=== PATIENT | female | born 1970 | race African-American/Black ===

== ENCOUNTER 2024-10-21 11:08 | Emergency (ER) | payer BC, SELFPAY ==
--- NOTE | ~2024-10-21 | CT_ITS ---
EXAMINATION: CT brain wo con DATE: 10/21/2024 14:30 INDICATION: headache . TECHNIQUE: Computed tomography (CT) of the head was performed without intravenous contrast. The mA wa s adjusted according to patient size. Iterative reconstruction technique was employed. The dose-lengt h product was 605.33 mGy-cm. COMPARISON: None. FINDINGS: No acute intracranial hemorrhage or extra-axial fluid collection. No hydrocephalus, mass, or herniation. No acute ischemic infarct. Unremarkable dural venous sinus attenuation. No acute osseous abnormality. Aerated secretions in the sphenoid sinus, sphenoid and bilateral maxillary mucosal thickening, the re maining the remaining aerated spaces are clear. IMPRESSION: No acute intracranial process. CT findings suggestive of acute sphenoid sinusitis in the appropriate clinical context. Reviewed, dictated and finalized at location K.
--- OUTSIDE RECORDS SUMMARY | 2024-10-21 11:12 | XMS_ITS | CONTINUITY OF CARE DOCUMENT ---
Author Name lalito starkey Address Unknown Organization [facility] Office Address [address] [place] [address] Phone [phone] Care Team Providers Care Wrapper Hands Sprayer Name Role Phone Jeevan Fonseca MD Unavailable Zen DORubia Unavailable Zen DO, Sheerin B Unavailable [phone] PROBLEMS Condition Status Date Provider Notes ASTHMA active Doris Leaeal VERTIGO active Doris Rosenberg CHEST PAIN NON-CARDIAC active Doris Rosenberg FAMILY HX HEART DISEASE active Doris Castrejon l Obesity active Jeevan Fonseca MD B12 deficiency completed - Jeevan Fonseca MD r/o Hypercholesterolemia;nml without rx completed - Jeevan Fonseca MD Asthma active Jeevan Fonseca MD r/o CVA completed - Jeevan Fonseca MD hx of DVT active Jeevan Fonseca MD 02 FAMILY HISTORY OF HEART DISEASE active Yovana Fonseca MD Anemia active Jeevan Fonseca MD Abnormal electrocardiogram active Jeevan de la cruz MD Palpitations active Jeevan Fonseca MD Sleep apnea active Jeevan Fonseca MD Vitamin D deficiency active Jeevan Walsh D Chest pain-type to be determined active Jesus Fonseca MD HTN essential active Jeevan Fonseca MD PREDIABETES active Jeevan Fonseca MD Health maintenance examination active Za Pascal MD ENCOUNTERS Date Type Provider Location Encounter Diag danilo 3 - 6 In-person encounter Office Visit Pranav Pascal MD [facility] Health maintenance examination 4 - 4 In-person encounter Office Visit Jeevan Fonseca MD [facility] r/o Hypercholesterolemia;nml without rxr/o CVAHealth maintenance examination 0 - 0 In-person encounter Office Visit Jeevan Fonseca MD [facility] B12 deficiencyPalpitationsSleep apneaVitamin D deficiencyChest pain-type to be determinedHTN essentialPREDIABETES 1 - 1 In-person encounter Office Visit Jeevan Zun[facility] Office ObesityAsthmahx of DVTFAMILY HISTORY OF HEART DISEASEAnemiaAbnormal electrocardiogramPalpitationsSleep apnea VITAL SIGNS Date Observation Value Provider blood pressure, diastolic 100 mm[Hg] Alvaro Sandra blood pressure, systolic 140 mm[Hg] Judith Sandra pulse rate 102 /min Radha Sandra oxygen saturation, oximetry 98 % Radha Sandra respiratory rate E&M 22 /min Alvaroralph Sandra Body Mass Index (Ratio) 36.83 kg/m2 Carlos Sandra weight E&M 214.6 [lb_av] Alvaroralph Sandra blood pressure, diastolic, right arm 80 m m[Hg] Janice Villalta blood pressure, systolic, right arm 124 m m[Hg] Janice Villalta blood pressure, diastolic 80 mm[Hg] Thor Villalta blood pressure, systolic 122 mm[Hg] Jasmine Villalta respiratory rate E&M 16 /min Janice Villalta Body Mass Index (Ratio) 36.04 kg/m2 Jagjit Villalta weight E&M 210 [lb_av] Janice Zepedaby pulse rate 85 /min Janice Zepedaby oxygen saturation, oximetry 98 % Janice Villalta Body Mass Index (Ratio) 37.11 kg/m2 Jagjit Villalta weight E&M 216.2 [lb_av] Janice Villalta blood pressure, diastolic 80 mm[Hg] Thor Villalta blood pressure, systolic 120 mm[Hg] Jasmine Villalta pulse rate 79 /min Janice Villalta oxygen saturation, oximetry 98 % Janice Villalta respiratory rate E&M 16 /min Janice Zepedaby blood pressure, diastolic, left arm 86 mm [Hg] Marjorie O'Darinel blood pressure, systolic, left arm 118 mm [Hg] Marjorie O'Darinel blood pressure, diastolic, right arm 80 m m[Hg] Marjorie O'Darinel blood pressure, systolic, right arm 120 m m[Hg] Marjorie O'Darinel blood pressure, diastolic 80 mm[Hg] Tana velazquezha O'Darinel blood pressure, systolic 120 mm[Hg] Annelise holland O'[facility] Body Mass Index (Ratio) 37.76 kg/m2 Clarence garcia O[facility] height E&M 64 [in_i] Marjorie O'Darinel pulse rate 96 /min Marjorie O'Darinel oxygen saturation, oximetry 98 % Marjorie O'Darinel respiratory rate E&M 16 /min Marjorie O'Darinel weight E&M 220 [lb_av] Marjorie O'Darinel ALLERGIES No Known Drug Allergies RESULTS Date Observation Value Provider Reference Range Interpretation Location folate, serum 6.8 NG/MLM [facility] 4.4 - 31.0 vitamin b12, serum 553.1 pg/mL [facility] 211.0 - 946.0 red blood cell distribution width, size density 38.6 fL [facility] - immature granulocytes, percentage of total cells, blood 0.1 % [facility] - nucleated red blood cells as percent of blood leukocytes 0.0 % [facility] - red blood cell (erythrocyte) count, per high power field 0.0 10*3/UL [facility] as percent of blood leukocytes 2.7 % [facility] neutrophils as percent of blood leukocytes 60.1 % [facility] Absolute Neutrophils 4.4 CELLS/UL [facility] 1.5 - 7.8 basophils as percent of blood leukocytes 1.0 % [facility] Basophils 0.1 CELLS/UL [facility] 0.0 - 0.2 monocytes as percent of blood leukocytes 7.2 % [facility] - Absolute Monocytes 0.5 CELLS/UL [facility] 0.2 - 1.0 lymphocytes as percent of blood leukocytes 28.9 % [facility] - Absolute Lymphocytes 2.1 CELLS/UL [facility] 0.9 - 3.9 mean platelet volume 10.9 (?) [facility] - platelet count 381.0 THOUSAND/UL [facility] 100.0 - 400.0 mean corpuscular hemoglobin concentration, RBC 31.2 G/DL [facility] 31.0 - 38.0 mean corpuscular hemoglobin, RBC 21.7 pg [facility] 25.0 - 35.0 Low mean corpuscular volume, RBC 69.6 fL [facility] 75.0 - 100.0 Low hematocrit, blood 34.6 % [facility] 35.0 - 55.0 Low hemoglobin, blood 10.8 g/dL [facility] 11.5 - 16.5 Low erythrocyte count, whole blood 5.0 MILLION/UL [facility] 3.5 - 5.5 reticulocyte count, absolute 0.080 10*6 CELLS/UL [facility] - reticulocyte count, blood, uncorrected 1.61 % [facility] 0.50 - 2.00 ferritin, serum 58.9 ng/mL [facility] 13.0 - 150.0 iron binding capacity, total 402.0 (?) [facility] - iron, serum 76.0 ug/dL [facility] 25.0 - 156.0 iron binding capacity, unsaturated 326.0 ??G/DL [facility] 112.0 - 347.0 D-dimer quantitative mcg/mL 0.62 MCG/ML FEU [facility] <0.50 High red blood cell distribution width, size density 38.5 fL [facility] - immature granulocytes, percentage of total cells, blood 0.1 % [facility] - nucleated red blood cells as percent of blood leukocytes 0.0 % [facility] - red blood cell (erythrocyte) count, per high power field 0.0 10*3/UL [facility] - eosinophils as percent of blood leukocytes 1.7 % [facility] - neutrophils as percent of blood leukocytes 64.2 % [facility] - Absolute Neutrophils 5.2 CELLS/UL [facility] 1.5 - 7.8 basophils as percent of blood leukocytes 0.7 % [facility] Absolute Basophils 0.1 CELLS/UL [facility] 0.0 - 0.2 monocytes as percent of blood leukocytes 5.1 % [facility] - Absolute Monocytes 0.4 CELLS/UL [facility] 0.2 - 1.0 lymphocytes as percent of blood leukocytes 28.2 % [facility] - Absolute Lymphocytes 2.3 CELLS/UL [facility] 0.9 - 3.9 mean platelet volume 11.2 (?) [facility] - platelet count 413.0 THOUSAND/UL [facility] 100.0 - 400.0 High mean corpuscular hemoglobin concentration, RBC 30.4 G/DL [facility] 31.0 - 38.0 Low mean corpuscular hemoglobin, RBC 21.6 pg [facility] 25.0 - 35.0 Low mean corpuscular volume, RBC 71.0 fL [facility] 75.0 - 100.0 Low hematocrit, blood 37.2 % [facility] 35.0 - 55.0 hemoglobin, blood 11.3 g/dL [facility] 11.5 - 16.5 Low erythrocyte count, whole blood 5.2 MILLION/UL [facility] 3.5 - 5.5 free thyroxine index 7.8 ??g/dL [facility] 4.4 - 11.4 triiodothyronine uptake 1.2 TBI [facility] 0.8 - 1.3 thyroxine, serum, total 9.4 ??G/DL [facility] 4.5 - 11.7 thyroid stimulating hormone, serum 1.280 ?IU/ML [facility] 0.270 - 4.200 rapid plasma reagin antibody, serum NON-REACTIV E [facility] NON-REACTIVE hemoglobin A1C, blood, as % of total hemoglobin 5.7 % [facility] 4.0 - 6.0 magnesium, serum 2.3 mg/dL [facility] 1.6 - 2.6 Nitrite Urine Negative [facility] Negative urobilinogen, urine 0.2 E.U./dL mg/dl [facility] 0.2 - 1.0 specific gravity, urine 1.025 [facility] 1.001 - 1.035 KETONES, URINE Negative [facility] Negative bilirubin, urine Negative [facility] Negative Glucose Urine Negative [facility] Negative clarity, urine, point Turbid [facility] Yellow urine color Yellow [facility] yellow to talon C-reactive protein, serum 1.2 mg/dL [facility] 0.0 - 0.5 High very low density lipoproteins 22.2 mg/dL [facility] 5.0 - 40.0 LDL/HDL (low-density lipoprotein/high-den sity lipoprotein) ratio 1.4 RATIO [facility] - lipoprotein, beta, serum, point, quantitative, calculated 96.8 (?) [facility] 0.0 - 100.0 HDL cholesterol, serum 69.0 mg/dL [facility] 45.0 - 65.0 High cholesterol, serum 188.0 mg/dL [facility] 0.0 - 200.0 triglyceride, serum, fasting 111.0 mg/dL [facility] 0.0 - 150.0 anion gap, serum 15.0 [facility] - albumin/globulin ratio, serum 2.5 g/dL [facility] 1.1 - 2.5 High globulin, serum 3.5 [facility] 2.3 - 3.8 urea nitrogen/creatinine ratio, serum 15.7 [facility] - Estimated Glomerular Filtration Rate (calc) 96.2 (?) [facility] 59.0 - chloride, serum 103.0 mmol/L [facility] 98.0 - 107.0 potassium, serum 4.4 mmol/L [facility] 3.5 - 5.1 sodium, serum 139.0 mmol/L [facility] 136.0 - 145.0 creatinine, serum 0.7 mg/dL [facility] 0.5 - 0.9 carbon dioxide, venous blood 21.0 mmol/L [facility] 22.0 - 29.0 Low albumin, serum 4.5 g/dL [facility] 3.5 - 5.2 calcium, serum 9.4 mg/dL [facility] 8.6 - 10.2 aspartate aminotransferase (SGOT), serum 19.0 1/L [facility] 0.0 - 32.0 alkaline phosphatase, serum 94.0 1/L [facility] 40.0 - 130.0 alanine aminotransferase (SGPT), serum 21.0 1/L [facility] 0.0 - 33.0 protein, total, serum 8.0 g/dL [facility] 6.6 - 8.7 bilirubin, serum, total 0.4 mg/dL [facility] 0.0 - 1.2 urea nitrogen, blood 11.0 mg/dL [facility] 6.0 - 20.0 blood glucose, random 84.0 mg/dL [facility] 74.0 - 99.0 pro brain natriuretic peptide 20.6 pg/mL [facility] 0.0 - 125.0 reticulocyte count, absolute 0.085 10*6 CELLS/UL [facility] - reticulocyte count, blood, uncorrected 1.63 % [facility] 0.50 - 2.00 iron binding capacity, unsaturated 313.0 ??G/DL [facility] 112.0 - 347.0 ferritin, serum 62.3 ng/mL [facility] 13.0 - 150.0 iron binding capacity, total 408.0 (?) [facility] - iron, serum 95.0 ug/dL [facility] 25.0 - 156.0 vitamin b12, serum 551.7 pg/mL [facility] 211.0 - 946.0 folate, serum 8.0 NG/MLM [facility] 4.4 - 31.0 HISTORY OF MEDICATION USE Medication Status Instructions Dates Provider Indications Com ments VITAMIN D3 87351 UNIT ORAL CAPSULE active ONE A WEEK 1 Jeevan Fonseca MD FERROUS SULFATE 325 (65 Fe) MG ORAL TABLET completed ONE PER DAY 0 - 3 Pranav Pascal MD ALBUTEROL SULFATE (5 MG/ML) 0.5% INHALATION NEBULIZATION SOLUTION active 2 puffs as direceted Janice Villalta VITAMIN D3 5000 UNIT ORAL TABLET completed take one tab daily 4 - 0 Jeevan Fonseca MD QSYMIA 7.5-46 MG ORAL CAPSULE EXTENDED RELEASE 24 HOUR completed one tablet daily 3 - 0 Jeevan Fonseca MD QSYMIA 3.75-23 MG ORAL CAPSULE EXTENDED RELEASE 24 HOUR completed one tablet daily 3 - 0 Jeevan Fonseca MD ZESTRIL TABLET active twice a day 1 Jeevan Fonseca MD VALIUM 10 MG ORAL TABLET active Doris Rosenberg SINGULAIR 10 MG ORAL TABLET active one tab. daily Doris Rosenberg MECLIZINE HCL 25 MG ORAL TABLET active Doris Rosenberg FLONASE SUSPENSION active Doris Leaeal PEPCID 20 MG ORAL TABLET active Doris Rosenberg ASPIRIN 81 MG ORAL TABLET active ONE TAB. DAILY Doris Leaeal SOCIAL HISTORY Date Observation Value Provider social history reviewed E&M revi ewed - no changes required Pranav Pascal MD social history E&M Alcohol Use - no D rug Use - no; occasionally Smoking History: P dianna has never smoked. Pranav Pascal MD drug use no Pranav Jesus alcohol use no Pranav Jesus smoking status Never smoker Pranav Pascal MD social history reviewed E&M revi ewed - no changes required Jeevan Fonseca MD number of grandchildren Pranav Willard social history reviewed E&M revi ewed - no changes required Jeevan Fonseca MD social history reviewed E&M revi ewed - no changes required Jeevan Fonseca MD smoking status Never smoker Marjorie Rodriguez FAMILY HISTORY Family Member Condition Full Sister Family History of Hy pertension: Father Family History of Hy pertension: Mother Family History of Hy pertension: Paternal Grandmother Family History of C oronary Artery Disease: Paternal Grandmother Family History of H ypertension: Paternal Grandfather Family History of C oronary Artery Disease: Paternal Grandfather Family History of H yperlipidemia: Maternal Grandfather Family History of C oronary Artery Disease: Maternal Grandfather Family History of H yperlipidemia: Maternal Grandmother Family History of C oronary Artery Disease: Maternal Grandmother Family History of H ypertension: INSURANCE PROVIDERS Payer name Policy type / Coverage type [employer] [id number] TREATMENT PLAN Date Name Performer Hem/Onc:Refer carmina malin for routine screening mammogram. Orders: M ammogram-Bilateral (CPT-37845) 9 [id number] MOD C omplex (CPT-07167) Pranav Pascal MD Hem/Onc:The patient has a microcytic with a near normal Hgb. This likely represents an underlying thalassemia or sickle cell trait. I will check hemoglobin elctorphoresis to confirm. I will also obtain FOB for evalaution. She will return in three months for follow up. Orders: H gb Electrophoresis (CPT-[id number]) M ammogram-Bilateral (CPT-35165) O CCULT BLOOD, STOOL (23201) 9 1557 MOD C omplex (CPT-20868) Pranav Pascal MD Cardiology Jeevan Fonseca MD Cardiology:5.7 Jeevan Fonseca MD Cardiology: n ml chol, crp 1.2, nml rpr, ,nml mra and mri Jeevan Fonseca MD Cardiology: m ild given htn will get dental appliace Jeevan Fonseca MD Cardiology:says goes up and will try it albina twice a day B P today: 122/80 P rior BP: 120/80 (11/06/2015) Labs Reviewed: C reat: 0.7 (09/12/2015) C hol: 188.0 (09/12/2015) HDL: 69.0 (09/12/2015) LDL: 96.8 (?) (09/12/2015) T.0 (09/12/2015) Jeevan Fonseca MD Cardiology:nml iron, will see gm, will check b12 and folate Jeevan Fonseca MD Cardiology:low but on rx now Jesus Fonseca MD Cardiology: n eg routine stress, still gets pain, neg echo and neg cxr, had cta in hosp which was normal Jeevan Fonseca MD Cardiology Jeevan Fonseca MD Cardiology:fu us neg, dd matthew Fonseca MD Cardiology Jeevan Fonseca MD Cardiology Jeevan Fonseca MD Cardiology:has qymis but not doreen ing it yet Jeevan Fonseca MD Cardiology:may need iron infusit on, will start iron Jeevan Fonseca MD Cardiology:nml chol, crp 1.2, nm l rpr, Jeevan Fonseca MD Cardiology:rxed will reasses Jesus Fonseca MD Cardiology:Rhythm: S inus Rhythm T he average heart rate was 86 BPM with a maximum heart rate of 141 BPM at 17:57:44. T he minimum heart rate was 49 BPM at 14:34:24. 6 Ventricular ectopics were observed as 6 isolated beat(s). N o Supraventricular ectopics were noted. D iary not submitted. nl tshHgb: 11.3 (09/12/2015) HCT: 37.2 (09/12/2015) Platelets: 413.0 THOUSAND/UL (09/12/2015) B UN: 11.0 (09/12/2015) Creat: 0.7 (09/12/2015) Glucose: 84.0 (09/12/2015) N a+: 139.0 (09/12/2015) K+: 4.4 (09/12/2015) Cl: 103.0 (09/12/2015) Anion Gap: 15.0 (09/12/2015) Calcium: 9.4 (09/12/2015) Mg++: 2.3 (09/12/2015) T SH: 1.280 ?IU/ML (09/12/2015) T4 (total): 9.4 ??G/DL (09/12/2015) Jeevan Fonseca MD Cardiology:mild given htn will g et dental appliace Jeevan Fonseca MD Cardiology:1. Normal left ventricular systolic function. Normal left ventricular size. Normal left ventricular wall t hickness. Normal left ventricular diastolic function. Normal E/E` 6.8. Left ventricular ejection fraction i s estimated at 65 %. 2 . The left atrium is normal in size. Left atrial volume index is 24.9. 3 . The mitral valve is normal in appearance and function. There is trace physiologic mitral valve r egurgitation. 4 . The tricuspid valve is normal in appearance and function. There is mild to moderate tricuspid r egurgitation. IVC is normal in size with normal respiratory response. Estimated peak pulmonary a rtery systolic pressure is 30. B P today: 120/80 P rior BP: 120/80 (09/09/2015) Labs Reviewed: C reat: 0.7 (09/12/2015) C hol: 188.0 (09/12/2015) HDL: 69.0 (09/12/2015) LDL: 96.8 (?) (09/12/2015) T.0 (09/12/2015) Jeevan Fonseca MD Cardiology:neg routi ne stress, still gets pain, neg echo and neg cxr, had cta in hosp? no resluts in epic Jeevan Fonseca MD Cardiology:Pulmonary Function Diagnosis: T echnically difficult study due to coughing E ssentially normal PFTs. Jeevan Fonseca MD :will try qusm,ia Jeevan Fonseca MD Cardiology:nsstt since 07 Jeevan Fonseca MD Cardiology:neg mri 11 and m ra H kevin Fonseca MD Date Name OCCULT BLOOD, STOOL Mammogram-Bilateral CBC (INCLUDES DIFF/P LT) RETICULOCYTE COUNT FOLATE, SERUM VITAMIN B12/FOLATE, SERUM PANEL VITAMIN B12 FOLATE, SERUM RETICULOCYTE COUNT CBC (INCLUDES DIFF/P LT) VITAMIN D, 25-HYDROX Y, LC/MS/MS RHEUMATOID FACTOR MANUEL SCREEN REFL TO T ITER, IFA MAGNESIUM Sed Rate T-4 (THYROXINE), TOT AL LIPASE AMYLASE URINALYSIS, COMPLETE W/REFLEX TO CULTURE VITAMIN D, 25-HYDROX Y, LC/MS/MS HEMOGLOBIN A1c D-DIMER, QUANTITATIV E RPR (MONITOR) W/REFL TITER THYROID PANEL WITH T SH, 3RD GENERATION C-REACTIVE PROTEIN LIPID PANEL COMPREHENSIVE METABO LIC PANEL W/EGFR PROBNP, N TERMINAL VITAMIN B12 RETICULOCYTE COUNT IRON AND TOTAL IRON BINDING CAPACITY FOLATE, SERUM FERRITIN CBC (INCLUDES DIFF/P LT) VITAMIN D, 25-HYDROX Y, LC/MS/MS HEMOGLOBIN A1c Sleep Study Home STR - Routine D-DIMER, QUANTITATIV E Complete Echo Holter Monitor 24 Hr RPR (MONITOR) W/REFL TITER THYROID PANEL WITH T SH, 3RD GENERATION C-REACTIVE PROTEIN LIPID PANEL COMPREHENSIVE METABO LIC PANEL W/EGFR PROBNP, N TERMINAL VITAMIN B12 RETICULOCYTE COUNT IRON AND TOTAL IRON BINDING CAPACITY FOLATE, SERUM FERRITIN CBC (INCLUDES DIFF/P LT) DLCO - 01439 FRC - 53672 FVC - 41894 HISTORY OF PROCEDURES Procedure Date Procedure Name Provider Procedure Notes S tatus SNOMED-CT: 911653232 [id number] Current Medications Documented Pranav Pascal MD completed SNOMED-CT: 370371451 117447 Current Medications Documented Jeevan Fonseca MD completed EKG Jeevan Fonseca MD complete d SNOMED-CT: 019266123 375661 Current Medications Documented Jeevan Fonseca MD completed FVC - 26960 Jeevan Fonseca MD complet ed FRC - 02737 Jeevan Fonseca MD complet ed DLCO - 94551 Jeevan Fonseca MD comple kimi Holter, 24 or 48 Jeevan Fonseca MD co mpleted Home Sleep Study Jeevan Fnoseca MD co mpleted SNOMED-CT: 584232838 201414 Current Medications Documented Jeevan Fonseca MD completed
[2024-10-21 11:16] VITALS: BP 156/114; PULSE 89; RESP 18; TEMP 36.4; O2SAT 100
[2024-10-21 13:24] VITALS: BP 135/75; PULSE 76; RESP 19; O2SAT 97
--- OUTSIDE RECORDS SUMMARY | 2024-10-21 13:37 | XMS_ITS | Patient Health Summary ---
Author Organization [facility] Address [address] [place] [address] Care Team Providers Care Ground Mixer Name Role Phone Katie Zaldivargurvinder Primo CASEY Primary Care Provider [phone] Rebecca Wright MD Unavailable Kadie Keating MD Unavailable [phone] Note from [facility],non-owned Affiliates and Associated Physician Practices is amultiple site organization consisting of ambulatory clinics and hospital sitesin [place], [place]. This disclosure is being madepursuant to the Care Everywhere program and may not contain all information available regarding this patient. Last updated 18.[facility] Allergies * Cat Hair Extract(Urticaria) -Medium Criticality * House Dust [Other](Other) * [place](Rash) -Medium Criticality * Tree Nuts(Urticaria,Rash) -Medium Criticality * Wheat Bran(Urticaria) -Medium Criticality Medications * Be aware that medications may not be up to date on this document. Alwaysverify current medications with the patient. * buPROPion XL 24hr (Wellbutrin-XL) 300 MG tablet(Started 12/16/2022) Take 1 (one) tablet by mouth once daily 3 refills by 12/16/2023 * fluticasone-salmeterol (Advair/Wixela) 500-50 MCG/ACT inhaler(Started 12/16/2022) Inhale 1 (one) puff by mouth 2 times daily 11 refills by 12/16/2023 * montelukast (Singulair) 10 MG tablet(Started 12/16/2022) Take 1 (one) tablet by mouth at bedtime 3 refills by 12/16/2023 * umeclidinium (Incruse Ellipta) 62.5 MCG/ACT inhaler(Started 12/16/2022) Inhale 1 (one) puff by mouth once daily 11 refills by 12/16/2023 * zolpidem (Ambien) 5 MG tablet(Started 12/16/2022) Take 1 (one) tablet by mouth nightly as needed for Insomnia * omeprazole (PriLOSEC) 20 MG capsule(Started 12/16/2022) Take 1 (one) capsule by mouth daily before breakfast 3 refills by 12/16/2023 * ondansetron, disintegrating, (Zofran ODT) 4 MG tablet(Started 01/29/2023) Take 1 (one) tablet by mouth every 6 hours as needed for Nausea/Vomiting Allow tablet to dissolve on the tongue 1 refill by 01/29/2024 * methocarbamol (Robaxin) 750 MG tablet(Started 02/25/2023) Take 1 (one) tablet by mouth every 8 hours as needed * carvedilol (Coreg) 12.5 MG tablet(Started 04/26/2023) Take 1 (one) tablet by mouth 2 times daily with morning and evening meal 4 refills by 04/25/2024 * fluticasone propionate (Flonase) 50 MCG/ACT nasal spray(Started 10/06/2023) [place] 2 (two) sprays into each nostril once daily 1 refill by 10/05/2024 * predniSONE (Deltasone) 20 MG tablet(Started 11/23/2023) Take 2 (two) tablets by mouth once daily * amLODIPine (Norvasc) 5 MG tablet(Started 02/29/2024) Take 1 (one) tablet by mouth once daily 3 refills by 02/28/2025 * tiZANidine (Zanaflex) 4 MG tablet(Started 03/01/2024) Take 1 (one) tablet by mouth every 8 hours as needed for Muscle Spasms 1 refill by 03/01/2025 * predniSONE (Deltasone) 5 MG tablet(Started 03/03/2024) Please take 15 mg PO x 5 days, 10 mg PO x 5 days and 5 mg PO x 5 days * adalimumab (Humira) 40 MG/0.4ML injection(Started 05/10/2024) Inject 0.4 mL subcutaneously every 14 days 1 refill by 05/10/2025 * ibuprofen (Motrin) 800 MG tablet(Started 07/04/2024) * traMADol (Ultram) 50 MG tablet(Started 08/11/2024) Take 1 (one) tablet by mouth every 6 hours as needed for Pain * vitamin D (Cholecaciferol) 125 MCG (5000 UT) capsule(Started 09/11/2024) Take 1 (one) capsule by mouth once daily 3 refills by 09/11/2025 * vitamin C (Ascorbic Acid) 1000 MG tablet(Started 09/11/2024) Take 1 (one) tablet by mouth once daily 3 refills by 09/11/2025 * albuterol HFA (Ventolin HFA) 108 (90 Base) MCG/ACT inhaler(Started 09/12/2024) Inhale 2 (two) puffs by mouth every 4 hours as needed * albuterol (Proventil;Ventolin) (2.5 MG/3ML) 0.083% nebulizer solution(Started 09/12/2024) Inhale 2.5 (two and one-half) mg by mouth 4 times daily as needed for Shortness of Breath 5 refills by 09/12/2025 * budesonide (Pulmicort) 0.5 MG/2ML nebulizer suspension(Started 09/12/2024) Inhale 2 mL by mouth 2 times daily Rinse mouth after use 4 refills by 09/12/2025 * benzonatate (Tessalon) 200 MG capsule(Started 09/12/2024) Take 1 (one) capsule by mouth 3 times daily as needed for Cough 5 refills by 09/12/2025 * irbesartan-hydroCHLOROthiazide (Avalide) 300-12.5 MG tablet(Started 09/15/2024) Take 1 tablet by mouth once daily Active Problems Problem Noted Date Diagnosed Date Moderate persistent asthma without complication 02/06/2020 Hypokalemia 11/28/2019 Community acquired pneumonia 11/28/2019 Suspected COVID-19 virus infection 11/28/2019 Mass of skin of back 09/08/2019 Lipoma of torso 08/25/2018 Asthma 11/23/2017 Chest pain 11/23/2017 Elevated blood pressure reading 11/23/2017 Asthenia 12/16/2016 Benign essential hypertension 12/16/2016 Dysarthria on examination 12/16/2016 Neck pain 12/16/2016 Impaired glucose tolerance 11/06/2015 Vitamin D deficiency 11/06/2015 Chest pain 11/06/2015 Abnormal electrocardiogram 09/09/2015 Anemia 09/09/2015 Deep vein thrombosis (DVT) 09/09/2015 Obesity 09/09/2015 Palpitations 09/09/2015 Sleep apnea 09/09/2015 Family history of heart disease 10/09/2010 Vertigo 10/09/2010 Screening for condition 02/13/2009 PPD negative 02/13/2009 Hay fever 02/13/2009 Resolved Problems Problem Noted Date Diagnosed Date Resolved Date Cough 08/11/2020 09/08/2020 Asthma exacerbation 11/23/2017 12/20/19 21 Social History Tobacco Use Types Packs/Day Years Used Date Smoking Tobacco: Never Smokeless Tobacco: Never Tobacco Cessation:Counseling Given: Not Answered Alcohol Use Standard Drinks/Week Comments Not Currently 0 (1 standard drink = 0.6 oz pur e alcohol) occas PHQ-2 Answer Date Recorded Patient Health Questionnaire-2 Score 0 07/19/2024 Sex and Gender Information Value Date Recorded Sex Assigned at Not on file Gender Identity Female 11/13/2020 9:48 AM CDT Sexual Orientation Not on file Last Filed Vital Signs Vital Sign Reading Time Taken Comments Blood Pressure 142/88 07/19/2024 9:20 AM GERIATRIC NURSING ASSISTANT Pulse 80 07/19/2024 9:20 AM GERIATRIC NURSING ASSISTANT Temperature 36.7 C (98 F) 07/19/2024 9:20 AM GERIATRIC NURSING ASSISTANT Respiratory Rate 18 04/06/2024 3:55 PM CDT Oxygen Saturation 99% 05/10/2024 1:51 PM CDT Inhaled Oxygen Concentration 21% 12/03/2019 7 :11 AM CDT Weight 110.2 kg (243 lb) 07/19/2024 9:20 AM GERIATRIC NURSING ASSISTANT Height 163.8 cm (5' 4.5 ) 07/19/2024 9:20 AM GERIATRIC NURSING ASSISTANT Body Mass Index 41.07 07/19/2024 9:20 AM GERIATRIC NURSING ASSISTANT Procedures * MAMMO BILAT DIAGNOSTIC W GIGI(Performed 07/05/2024) Performed for Breast pain * URINALYSIS W/MICROSCOPIC NO CULTURE(Performed 05/10/2024) * CULTURE URINE COMPREHENSIVE(Performed 05/10/2024) * CHLAMYDIA + GC + TRICH DNA AMPL(Performed 05/10/2024) * XR CERVICAL SPINE 2 OR 3VW(Performed 04/06/2024) Performed for Neck pain * XR THORACIC SPINE 3VW(Performed 04/06/2024) Performed for Neck pain * T4 TOTAL(Performed 02/29/2024) Performed for Hypertension, essential * TSH(Performed 02/29/2024) Performed for Hypertension, essential * LIPID PROFILE(Performed 02/29/2024) Performed for Screening for hyperlipidemia * CULTURE URINE(Performed 02/29/2024) Performed for Urinary frequency * URINALYSIS MICROSCOPIC ONLY REFLEXED(Performed 02/29/2024) Performed for Urinary frequency * MAGNESIUM BLOOD(Performed 02/29/2024) Performed for Hypertension, essential * URINALYSIS W/MICROSCOPIC NO CULTURE(Performed 02/29/2024) Performed for Urinary frequency * HEMOGLOBIN A1C(Performed 02/29/2024) Performed for Urinary frequency * ERYTHROCYTE SEDIMENTATION RATE(Performed 02/23/2024) Performed for Non-radiographic axial spondyloarthritis (HCC), Polyarthralgia, Elevated C-reactive protein (CRP), Vitamin D deficiency, High risk medications (not anticoagulants) long-term use, Immunosuppressed status (HCC) * C-REACTIVE PROTEIN(Performed 02/23/2024) Performed for Non-radiographic axial spondyloarthritis (HCC), Polyarthralgia, Elevated C-reactive protein (CRP), Vitamin D deficiency, High risk medications (not anticoagulants) long-term use, Immunosuppressed status (HCC) * COMPREHENSIVE METABOLIC PANEL(Performed 02/23/2024) Performed for Non-radiographic axial spondyloarthritis (HCC), Polyarthralgia, Elevated C-reactive protein (CRP), Vitamin D deficiency, High risk medications (not anticoagulants) long-term use, Immunosuppressed status (HCC) * CBC W AUTO DIFFERENTIAL(Performed 02/23/2024) Performed for Non-radiographic axial spondyloarthritis (HCC), Polyarthralgia, Elevated C-reactive protein (CRP), Vitamin D deficiency, High risk medications (not anticoagulants) long-term use, Immunosuppressed status (HCC) * QUANTIFERON TB-GOLD(Performed 11/18/2023) Performed for Non-radiographic axial spondyloarthritis (HCC), Polyarthralgia, Elevated C-reactive protein (CRP), Vitamin D deficiency, High risk medications (not anticoagulants) long-term use, Immunosuppressed status (HCC) * VITAMIN D 25-HYDROXY(Performed 11/18/2023) Performed for Non-radiographic axial spondyloarthritis (HCC), Polyarthralgia, Elevated C-reactive protein (CRP), Vitamin D deficiency, High risk medications (not anticoagulants) long-term use, Immunosuppressed status (HCC) * ERYTHROCYTE SEDIMENTATION RATE(Performed 11/18/2023) Performed for Non-radiographic axial spondyloarthritis (HCC), Polyarthralgia, Elevated C-reactive protein (CRP), Vitamin D deficiency, High risk medications (not anticoagulants) long-term use, Immunosuppressed status (HCC) * C-REACTIVE PROTEIN(Performed 11/18/2023) Performed for Non-radiographic axial spondyloarthritis (HCC), Polyarthralgia, Elevated C-reactive protein (CRP), Vitamin D deficiency, High risk medications (not anticoagulants) long-term use, Immunosuppressed status (HCC) * COMPREHENSIVE METABOLIC PANEL(Performed 11/18/2023) Performed for Non-radiographic axial spondyloarthritis (HCC), Polyarthralgia, Elevated C-reactive protein (CRP), Vitamin D deficiency, High risk medications (not anticoagulants) long-term use, Immunosuppressed status (HCC) * CBC W AUTO DIFFERENTIAL(Performed 11/18/2023) Performed for Non-radiographic axial spondyloarthritis (HCC), Polyarthralgia, Elevated C-reactive protein (CRP), Vitamin D deficiency, High risk medications (not anticoagulants) long-term use, Immunosuppressed status (HCC) * INTERPRETATION REFLEXED(Performed 11/18/2023) Performed for Non-radiographic axial spondyloarthritis (HCC), Polyarthralgia, Elevated C-reactive protein (CRP), Vitamin D deficiency, High risk medications (not anticoagulants) long-term use, Immunosuppressed status (HCC) * HEPATITIS SCREEN ACUTE ([facility])(Performed 11/18/2023) Performed for Non-radiographic axial spondyloarthritis (HCC), Polyarthralgia, Elevated C-reactive protein (CRP), Vitamin D deficiency, High risk medications (not anticoagulants) long-term use, Immunosuppressed status (HCC) * CT SINUS WO CONTRAST(Performed 10/16/2023) Performed for TMJ (temporomandibular joint disorder), Facial swelling, [place] muscle spasm * NM MYOCARD PERF REST STRESS(Performed 05/06/2023) Performed for Nonspecific abnormal electrocardiogram (ECG) (EKG), Chest discomfort * STRESS TEST(Performed 05/06/2023) Performed for Nonspecific abnormal electrocardiogram (ECG) (EKG), Chest discomfort * ECHO COMPLETE(Performed 04/26/2023) Performed for Hypertension, essential, History of syncope * ERYTHROCYTE SEDIMENTATION RATE(Performed 04/14/2023) Performed for Tenosynovitis of right hand, Cellulitis and abscess of hand * COMPREHENSIVE METABOLIC PANEL(Performed 04/14/2023) Performed for Tenosynovitis of right hand, Cellulitis and abscess of hand * CBC W AUTO DIFFERENTIAL(Performed 04/14/2023) Performed for Tenosynovitis of right hand, Cellulitis and abscess of hand * XR CERVICAL SPINE 4 OR 5VW(Performed 03/01/2023) Performed for Right arm pain, Cervicalgia * XR FOREARM RIGHT 2VW OR MORE(Performed 03/01/2023) Performed for Right arm pain * XR ELBOW RIGHT 3VW OR MORE(Performed 03/01/2023) Performed for Right arm pain * XR HAND RIGHT 3VW OR MORE(Performed 03/01/2023) Performed for Right arm pain * INTERPRETATION REFLEXED(Performed 02/02/2023) Performed for Non-radiographic axial spondyloarthritis (HCC), Polyarthralgia, Elevated C-reactive protein (CRP), Vitamin D deficiency, High risk medications (not anticoagulants) long-term use, Immunosuppressed status (HCC) * HEPATITIS SCREEN ACUTE ([facility])(Performed 02/02/2023) Performed for Non-radiographic axial spondyloarthritis (HCC), Polyarthralgia, Elevated C-reactive protein (CRP), Vitamin D deficiency, High risk medications (not anticoagulants) long-term use, Immunosuppressed status (HCC) * ERYTHROCYTE SEDIMENTATION RATE(Performed 02/02/2023) Performed for Non-radiographic axial spondyloarthritis (HCC), Polyarthralgia, Elevated C-reactive protein (CRP), Vitamin D deficiency, High risk medications (not anticoagulants) long-term use, Immunosuppressed status (HCC) * C-REACTIVE PROTEIN(Performed 02/02/2023) Performed for Non-radiographic axial spondyloarthritis (HCC), Polyarthralgia, Elevated C-reactive protein (CRP), Vitamin D deficiency, High risk medications (not anticoagulants) long-term use, Immunosuppressed status (HCC) * URINALYSIS MICROSCOPIC ONLY REFLEXED(Performed 01/18/2023) Performed for Physical exam, annual * QUANTIFERON-TB GOLD PLUS 4-TUBE(Performed 01/18/2023) Performed for Screening-pulmonary TB * MAGNESIUM BLOOD(Performed 01/18/2023) Performed for Hypertension, essential * VITAMIN D 25-HYDROXY(Performed 01/18/2023) Performed for Physical exam, annual * VITAMIN B12(Performed 01/18/2023) Performed for Physical exam, annual * URINALYSIS W/MICROSCOPIC NO CULTURE(Performed 01/18/2023) Performed for Physical exam, annual * TSH(Performed 01/18/2023) Performed for Physical exam, annual * T4 TOTAL(Performed 01/18/2023) Performed for Physical exam, annual * LIPID PROFILE(Performed 01/18/2023) Performed for Physical exam, annual * HEMOGLOBIN A1C(Performed 01/18/2023) Performed for Physical exam, annual * ERYTHROCYTE SEDIMENTATION RATE(Performed 01/18/2023) Performed for Physical exam, annual * COMPREHENSIVE METABOLIC PANEL(Performed 01/18/2023) Performed for Physical exam, annual * CBC W AUTO DIFFERENTIAL(Performed 01/18/2023) Performed for Physical exam, annual * CARDIAC EKG ORDER(Performed 12/18/2022) * CT HEAD WO CONTRAST(Performed 12/16/2022) Performed for Dizziness * TROPONIN I(Performed 12/16/2022) * TSH REFLEX FREE T4(Performed 12/16/2022) * TROPONIN I(Performed 12/16/2022) * COMPREHENSIVE METABOLIC PANEL(Performed 12/16/2022) * CBC W AUTO DIFFERENTIAL(Performed 12/16/2022) * XR CHEST 1VW(Performed 12/16/2022) Performed for Dizziness * EKG 12-LEAD(Performed 12/16/2022) Performed for Dizziness * IMAGING/RADIOLOGY/XRAY RESULTS ORDER(Performed 02/22/2022) * IMAGING/RADIOLOGY/XRAY RESULTS ORDER(Performed 02/14/2022) * IMAGING/RADIOLOGY/XRAY RESULTS ORDER(Performed 02/14/2022) * IMAGING/RADIOLOGY/XRAY RESULTS ORDER(Performed 12/30/2021) * IMAGING/RADIOLOGY/XRAY RESULTS ORDER(Performed 12/30/2021) * IMAGING/RADIOLOGY/XRAY RESULTS ORDER(Performed 07/12/2021) * IMAGING/RADIOLOGY/XRAY RESULTS ORDER(Performed 07/12/2021) * IMAGING/RADIOLOGY/XRAY RESULTS ORDER(Performed 07/12/2021) * IMAGING/RADIOLOGY/XRAY RESULTS ORDER(Performed 07/12/2021) * XR TIBIA FIBULA RIGHT 2VW(Performed 04/09/2021) Performed for Closed fracture of right tibia and fibula with routine healing, subsequent encounter * XR ANKLE RIGHT 3VW OR MORE(Performed 04/09/2021) Performed for Closed fracture of right tibia and fibula with routine healing, subsequent encounter * XR FOOT RIGHT 3VW OR MORE(Performed 04/09/2021) Performed for Closed fracture of right tibia and fibula with routine healing, subsequent encounter * VAS RIGHT VENOUS DUPLEX LE(Performed 04/09/2021) Performed for Deep vein thrombosis (DVT) of distal vein of lower extremity, unspecified chronicity,unspecified laterality (HCC), Right leg pain * XR TIBIA FIBULA RIGHT 2VW(Performed 03/12/2021) Performed for Other closed fracture of proximal end of right fibula, sequela * IMAGING/RADIOLOGY/XRAY RESULTS ORDER(Performed 03/07/2021) * IMAGING/RADIOLOGY/XRAY RESULTS ORDER(Performed 03/07/2021) * IMAGING/RADIOLOGY/XRAY RESULTS ORDER(Performed 03/07/2021) * IMAGING/RADIOLOGY/XRAY RESULTS ORDER(Performed 03/07/2021) * XR PELVIS W BILAT HIP 2VW(Performed 03/06/2021) Performed for Lumbar pain, Bilateral hip pain * XR LUMBAR SPINE 4VW OR MORE(Performed 03/06/2021) Performed for Lumbar pain, Bilateral hip pain * MRI ANKLE RIGHT WWO CONTRAST(Performed 02/21/2021) Performed for Foot pain, bilateral, Arthralgia of both ankles, Osteoarthritis of right ankle, unspecified osteoarthritis type, Bone cyst of right fibula, Posterior tibial tendon dysfunction (PTTD) ofright lower extremity, Posterior tibial tendonitis of right leg, Unstable ankle, unspecified laterality, Sinus tarsi syndrome of right ankle * SARS-COV-2 (COVID-19) IN HOUSE(Performed 02/14/2021) Performed for Person under investigation for COVID-19 * XR FOOT BILAT WT BEARING 3VW(Performed 02/13/2021) Performed for Foot pain, bilateral, Arthralgia of both ankles, Osteoarthritis of right ankle, unspecified osteoarthritis type, Posterior tibial tendon dysfunction (PTTD) of right lower extremity, Posterior tibial tendonitis of right leg, Sinus tarsi syndrome of right ankle * VITAMIN D 25-HYDROXY(Performed 02/05/2021) Performed for Non-radiographic axial spondyloarthritis (HCC), Polyarthralgia, Elevated C-reactive protein (CRP), Vitamin D deficiency, High risk medications (not anticoagulants) long-term use, Immunosuppressed status (HCC) * HEPATITIS SCREEN ACUTE(Performed 02/05/2021) Performed for Non-radiographic axial spondyloarthritis (HCC), Polyarthralgia, Elevated C-reactive protein (CRP), Vitamin D deficiency, High risk medications (not anticoagulants) long-term use, Immunosuppressed status (HCC) * ERYTHROCYTE SEDIMENTATION RATE(Performed 02/05/2021) Performed for Non-radiographic axial spondyloarthritis (HCC), Polyarthralgia, Elevated C-reactive protein (CRP), Vitamin D deficiency, High risk medications (not anticoagulants) long-term use, Immunosuppressed status (HCC) * C-REACTIVE PROTEIN(Performed 02/05/2021) Performed for Non-radiographic axial spondyloarthritis (HCC), Polyarthralgia, Elevated C-reactive protein (CRP), Vitamin D deficiency, High risk medications (not anticoagulants) long-term use, Immunosuppressed status (HCC) * COMPREHENSIVE METABOLIC PANEL(Performed 02/05/2021) Performed for Non-radiographic axial spondyloarthritis (HCC), Polyarthralgia, Elevated C-reactive protein (CRP), Vitamin D deficiency, High risk medications (not anticoagulants) long-term use, Immunosuppressed status (HCC) * CBC W AUTO DIFFERENTIAL(Performed 02/05/2021) Performed for Non-radiographic axial spondyloarthritis (HCC), Polyarthralgia, Elevated C-reactive protein (CRP), Vitamin D deficiency, High risk medications (not anticoagulants) long-term use, Immunosuppressed status (HCC) * XR FINGERS RIGHT 2VW OR MORE(Performed 02/04/2021) Performed for Chronic hand pain, right * MAMMO BILAT SCREENING(Performed 01/30/2021) Performed for Encounter for screening mammogram for malignant neoplasm of breast * RPR W REFLEX TO TITER+CONFIRM(Performed 01/29/2021) Performed for Screen for STD (sexually transmitted disease) * LDH BLOOD(Performed 01/29/2021) Performed for Cyst of right ovary * INHIBIN A(Performed 01/29/2021) Performed for Cyst of right ovary * INHIBIN B(Performed 01/29/2021) Performed for Cyst of right ovary * ESTRADIOL(Performed 01/29/2021) Performed for Cyst of right ovary * ALPHA FETOPROTEIN BLOOD TUMOR MARKER(Performed 01/29/2021) Performed for Cyst of right ovary * CANCER ANTIGEN (CA)125 BLOOD(Performed 01/29/2021) Performed for Cyst of right ovary * HIV-1 HIV-2 ANTIBODY + HIV P24 AG PANEL(Performed 01/29/2021) Performed for Screen for STD (sexually transmitted disease) * HEPATITIS B SURFACE ANTIGEN W RFLX CONFIRMATION(Performed 01/29/2021) Performed for Screen for STD (sexually transmitted disease) * CHLAMYDIA + GC + TRICH DNA AMPL(Performed 01/24/2021) Performed for Pelvic pain, Screen for STD (sexually transmitted disease) * IMAGING/RADIOLOGY/XRAY RESULTS ORDER(Performed 12/18/2020) * PERIPHERAL BLOCK(Performed 12/13/2020) * [place] INCISE FINGER TENDON SHEATH(Performed 12/13/2020) Performed for Carpal tunnel syndrome on right, Cubital tunnel syndrome on right, Trigger thumb of right hand * WI REVISE ULNAR NERVE AT ELBOW(Performed 12/13/2020) Performed for Carpal tunnel syndrome on right, Cubital tunnel syndrome on right, Trigger thumb of right hand * WI REVISE MEDIAN N/CARPAL TUNNEL SURG(Performed 12/13/2020) Performed for Carpal tunnel syndrome on right, Cubital tunnel syndrome on right, Trigger thumb of right hand * VAS RIGHT VENOUS DUPLEX LE(Performed 12/04/2020) Performed for Right calf pain * XR FOOT RIGHT 3VW OR MORE(Performed 12/03/2020) Performed for Arch pain of right foot * XR ANKLE RIGHT 3VW OR MORE(Performed 12/03/2020) Performed for Right ankle swelling * MANUEL PANEL COMPREHENSIVE(Performed 12/03/2020) Performed for Non-radiographic axial spondyloarthritis (HCC), Polyarthralgia, Elevated C-reactive protein (CRP), Vitamin D deficiency, High risk medications (not anticoagulants) long-term use, Immunosuppressed status (HCC) * XR CHEST 2VW(Performed 08/22/2020) Performed for Productive cough, Mild intermittent asthma without complication (HCC), Wheezing * TROPONIN I(Performed 08/11/2020) * XR CHEST 1VW PORTABLE(Performed 08/11/2020) Performed for Cough * SARS-COV-2 (COVID-19) IN HOUSE(Performed 08/11/2020) * INFLUENZA A+B ANTIGEN RAPID(Performed 08/11/2020) * MAGNESIUM BLOOD(Performed 08/11/2020) * COMPREHENSIVE METABOLIC PANEL(Performed 08/11/2020) * CBC W AUTO DIFFERENTIAL(Performed 08/11/2020) * EKG 12-LEAD(Performed 08/11/2020) Performed for Cough * XR HAND RIGHT 3VW OR MORE(Performed 06/24/2020) Performed for Hand pain, right, Swelling of right hand * US PELVIS W TRANSVAG NON OB(Performed 06/10/2020) Performed for Cyst of right ovary * LAB RESULTS ORDER(Performed 06/04/2020) * LAB RESULTS ORDER(Performed 05/17/2020) * CT SINUS WO CONTRAST(Performed 05/02/2020) Performed for Sinusitis, unspecified chronicity, unspecified location * MANUEL PANEL COMPREHENSIVE(Performed 03/18/2020) Performed for Polyarthralgia, Elevated C-reactive protein (CRP), Vitamin D deficiency * COMPLEMENT C3 C4 PANEL(Performed 03/18/2020) Performed for Polyarthralgia, Elevated C-reactive protein (CRP), Vitamin D deficiency * RHEUMATOID ARTHRITIS PANEL(Performed 03/18/2020) Performed for Polyarthralgia, Elevated C-reactive protein (CRP), Vitamin D deficiency * VITAMIN D 25-HYDROXY(Performed 03/18/2020) Performed for Polyarthralgia, Elevated C-reactive protein (CRP), Vitamin D deficiency * HEPATITIS SCREEN ACUTE(Performed 03/18/2020) Performed for Polyarthralgia, Elevated C-reactive protein (CRP), Vitamin D deficiency * ERYTHROCYTE SEDIMENTATION RATE(Performed 03/18/2020) Performed for Polyarthralgia, Elevated C-reactive protein (CRP), Vitamin D deficiency * C-REACTIVE PROTEIN(Performed 03/18/2020) Performed for Polyarthralgia, Elevated C-reactive protein (CRP), Vitamin D deficiency * CK BLOOD(Performed 03/18/2020) Performed for Polyarthralgia, Elevated C-reactive protein (CRP), Vitamin D deficiency * COVID-19 SARS-COV-2 PCR QUAL ([facility])(Performed 01/10/2020) Performed for Exposure to SARS-associated coronavirus * CT CHEST WO CONTRAST(Performed 01/10/2020) Performed for Chest heaviness, History of 2019 novel coronavirus disease (COVID- 19), Elevated sed rate * XR CHEST 2VW(Performed 12/30/2019) Performed for Infiltrate of left lung present on chest x-ray * XR CHEST 2VW(Performed 12/13/2019) Performed for Pneumonia due to organism, Low blood potassium * CARDIAC RHYTHM STRIP ORDER(Performed 12/06/2019) * POTASSIUM BLOOD(Performed 12/04/2019) * O+P RST RFLXED(Performed 12/04/2019) * O+P PANEL(Performed 12/04/2019) * COMPREHENSIVE METABOLIC PANEL(Performed 12/01/2019) * CT ABDOMEN PELVIS WO CONTRAST(Performed 11/30/2019) Performed for Fever, unspecified fever cause, Nausea and vomiting, intractability of vomiting not specified, unspecified vomiting type * XR CHEST 1VW PORTABLE(Performed 11/30/2019) Performed for Fever, unspecified fever cause * COMPREHENSIVE METABOLIC PANEL(Performed 11/30/2019) * EKG 12-LEAD(Performed 11/29/2019) Performed for Chest pain on breathing * LEGIONELLA ANTIGEN URINE(Performed 11/29/2019) * STREP PNEUMONIAE ANTIGEN URINE(Performed 11/29/2019) * SARS-COV-2 (COVID-19) IN HOUSE(Performed 11/29/2019) * BASIC METABOLIC PANEL (CALCIUM TOTAL)(Performed 11/29/2019) * CBC W AUTO DIFFERENTIAL(Performed 11/29/2019) * TROPONIN I(Performed 11/29/2019) * TROPONIN I(Performed 11/28/2019) * URINE MICROSCOPIC ONLY REFLEX TO CULTURE(Performed 11/28/2019) * URINALYSIS REFLEX MICROSCOPIC REFLEX CULTURE(Performed 11/28/2019) * CULTURE URINE(Performed 11/28/2019) * SARS-COV-2 (COVID-19) IN HOUSE(Performed 11/28/2019) * RESPIRATORY PATHOGEN PANEL BY PCR(Performed 11/28/2019) * XR CHEST 1VW PORTABLE(Performed 11/28/2019) Performed for Chest pain, unspecified type * CK BLOOD(Performed 11/28/2019) * PROCALCITONIN LEVEL(Performed 11/28/2019) * LACTIC ACID BLOOD(Performed 11/28/2019) * C-REACTIVE PROTEIN(Performed 11/28/2019) * LDH BLOOD(Performed 11/28/2019) * FERRITIN(Performed 11/28/2019) * TROPONIN I(Performed 11/28/2019) * D-DIMER(Performed 11/28/2019) * COMPREHENSIVE METABOLIC PANEL(Performed 11/28/2019) * CBC W AUTO DIFFERENTIAL(Performed 11/28/2019) * CULTURE BLOOD(Performed 11/28/2019) * CULTURE BLOOD(Performed 11/28/2019) * EKG 12-LEAD(Performed 11/28/2019) Performed for Chest pain, unspecified type * PATHOLOGY TISSUE EXAM (STL)(Performed 09/27/2019) Performed for Diagnosis unknown * LARYNGEAL MASK AIRWAY(Performed 09/27/2019) * INCISION AND DRAINAGE BACK(Performed 09/27/2019) * C DIFFICILE TOXIN A+B(Performed 09/18/2019) * O+P PANEL(Performed 09/18/2019) Performed for Diarrhea of infectious origin * GGT(Performed 09/18/2019) Performed for Non-intractable vomiting with nausea, unspecified vomiting type, Abdominal pain, generalized * LIPASE BLOOD(Performed 09/18/2019) Performed for Non-intractable vomiting with nausea, unspecified vomiting type, Abdominal pain, generalized * AMYLASE BLOOD(Performed 09/18/2019) Performed for Non-intractable vomiting with nausea, unspecified vomiting type, Abdominal pain, generalized * ERYTHROCYTE SEDIMENTATION RATE(Performed 09/18/2019) Performed for Non-intractable vomiting with nausea, unspecified vomiting type, Abdominal pain, generalized, History of UTI, Dehydration * COMPREHENSIVE METABOLIC PANEL(Performed 09/18/2019) Performed for Non-intractable vomiting with nausea, unspecified vomiting type, Abdominal pain, generalized, History of UTI, Dehydration * CBC W AUTO DIFFERENTIAL(Performed 09/18/2019) Performed for Non-intractable vomiting with nausea, unspecified vomiting type, Abdominal pain, generalized, History of UTI, Dehydration * CULTURE STOOL PANEL(Performed 09/18/2019) Performed for Diarrhea of infectious origin * LAB RESULTS ORDER(Performed 09/15/2019) * CULTURE URINE(Performed 09/12/2019) Performed for History of UTI * URINALYSIS AUTO - POINT OF CARE (AMB) STL(Performed 09/12/2019) Performed for History of UTI, Dehydration * AMB REFERRAL TO GENERAL SURGERY(Performed 09/08/2019) Performed for Lipoma of torso * XR CHEST 2VW(Performed 06/20/2019) Performed for Coughing, Wheezing * INFLUENZA A+B - POINT OF CARE (AMB)(Performed 06/20/2019) Performed for Coughing * STREP A SCREEN - POINT OF CARE (AMB)(Performed 06/20/2019) Performed for Sore throat * CARDIAC EKG ORDER(Performed 06/02/2019) * TROPONIN I(Performed 03/20/2019) * RBC MORPHOLOGY(Performed 03/19/2019) * D-DIMER(Performed 03/19/2019) * CBC W AUTO DIFFERENTIAL(Performed 03/19/2019) * XR CHEST 1VW PORTABLE(Performed 03/19/2019) Performed for Chest pain, unspecified type * COMPREHENSIVE METABOLIC PANEL(Performed 03/19/2019) * TROPONIN I(Performed 03/19/2019) * EKG 12-LEAD(Performed 03/19/2019) Performed for Chest pain, unspecified type * ERYTHROCYTE SEDIMENTATION RATE(Performed 11/24/2018) Performed for Elevated sed rate * COMPREHENSIVE METABOLIC PANEL(Performed 11/24/2018) Performed for Lipoma of torso * CBC W AUTO DIFFERENTIAL(Performed 11/24/2018) Performed for Abnormal CBC * CT CHEST WO CONTRAST(Performed 11/24/2018) Performed for Lipoma of torso * HEMOGLOBIN A1C(Performed 08/23/2018) Performed for Screening for diabetes mellitus * ERYTHROCYTE SEDIMENTATION RATE(Performed 08/23/2018) Performed for Chest pain, unspecified type, Dyspnea, unspecified type, Essential hypertension, Screening for hyperlipidemia, Right acute otitis media * LIPID PROFILE(Performed 08/23/2018) Performed for Screening for hyperlipidemia * MAGNESIUM BLOOD(Performed 08/23/2018) Performed for Chest pain, unspecified type, Essential hypertension * T4 TOTAL(Performed 08/23/2018) Performed for Chest pain, unspecified type, Essential hypertension * TSH(Performed 08/23/2018) Performed for Chest pain, unspecified type, Essential hypertension * COMPREHENSIVE METABOLIC PANEL(Performed 08/23/2018) Performed for Chest pain, unspecified type, Dyspnea, unspecified type, Essential hypertension, Screening for hyperlipidemia, Screening for diabetes mellitus, Right acute otitis media * CBC W AUTO DIFFERENTIAL(Performed 08/23/2018) Performed for Chest pain, unspecified type, Dyspnea, unspecified type, Essential hypertension, Screening for hyperlipidemia, Screening for diabetes mellitus, Right acute otitis media * XR CHEST 2VW(Performed 08/18/2018) Performed for Chest pain, unspecified type, Cough * CARDIAC EKG ORDER(Performed 08/18/2018) * CARDIAC RHYTHM STRIP ORDER(Performed 12/08/2016) * CARDIAC EKG ORDER(Performed 12/08/2016) * MRI BRAIN WWO CONTRAST(Performed 12/03/2016) Performed for Acute nonintractable headache, unspecified headache type * MRI CERVICAL SPINE WO CONTRAST(Performed 12/02/2016) Performed for Posterior neck pain, Left arm pain * TROPONIN I(Performed 12/02/2016) * EKG 12-LEAD(Performed 12/02/2016) Performed for Blood pressure elevated without history of HTN * TROPONIN I(Performed 12/02/2016) * CBC W AUTO DIFFERENTIAL(Performed 12/01/2016) * COMPREHENSIVE METABOLIC PANEL(Performed 12/01/2016) * TROPONIN I(Performed 12/01/2016) * NT-PRO BNP(Performed 12/01/2016) * XR CHEST 2VW(Performed 12/01/2016) * EKG 12-LEAD(Performed 12/01/2016) * MAMMO BILAT SCREENING(Performed 01/25/2016) Performed for Screening for breast cancer * LAB RESULTS ORDER(Performed 11/06/2015) * CARDIAC RHYTHM STRIP ORDER(Performed 10/05/2015) * CARDIAC EKG ORDER(Performed 10/05/2015) * CT CARDIAC ANGIO W RYAN EVAL(Performed 10/04/2015) Performed for Chest pain, unspecified chest pain type * HEMOGLOBIN A1C(Performed 10/04/2015) Performed for Chest pain radiating to arm * BASIC METABOLIC PANEL (CALCIUM TOTAL)(Performed 10/04/2015) Performed for Chest pain radiating to arm * VAS BILATERAL VENOUS DUPLEX LE(Performed 10/03/2015) Performed for Chest pain, unspecified chest pain type, Chest pain radiating to arm, Screening for condition, Hay fever * VAS LEFT VENOUS DUPLEX UE(Performed 10/03/2015) Performed for Chest pain, unspecified chest pain type, Chest pain radiating to arm, Screening for condition, Hay fever * CBC W AUTO DIFFERENTIAL(Performed 10/03/2015) * BASIC METABOLIC PANEL (CALCIUM TOTAL)(Performed 10/03/2015) * TROPONIN I(Performed 10/02/2015) * EKG 12-LEAD(Performed 10/02/2015) Performed for Chest pain radiating to arm * TROPONIN I(Performed 10/02/2015) * XR CHEST 2VW(Performed 10/02/2015) Performed for Chest pain, unspecified chest pain type * COMPREHENSIVE METABOLIC PANEL(Performed 10/02/2015) * CBC W AUTO DIFFERENTIAL(Performed 10/02/2015) * TROPONIN I(Performed 10/02/2015) * EKG 12-LEAD(Performed 10/02/2015) Performed for Chest pain, unspecified chest pain type * CARDIAC ECHOCARDIOGRAM COMPLETE ORDER(Performed 10/02/2015) * EVENT MONITOR(Performed 10/02/2015) * CARDIAC STRESS TEST ORDER(Performed 10/02/2015) * XR CHEST 2VW(Performed 09/16/2015) Performed for Coughing, Wheezing * CARDIAC EVENT MONITOR ORDER(Performed 09/11/2015) * LAB RESULTS ORDER(Performed 09/11/2015) * LAB RESULTS ORDER(Performed 09/11/2015) * XR HAND RIGHT 3VW OR MORE(Performed 09/09/2015) Performed for Thumb pain, right * URINALYSIS - POINT OF CARE(Performed 09/09/2015) Performed for Physical exam, annual * EKG 12-LEAD(Performed 09/09/2015) Performed for Essential hypertension * CARDIAC HOLTER MONITOR ORDER(Performed 09/09/2015) * CT ABDOMEN PELVIS W CONTRAST(Performed 06/26/2015) Performed for Abdominal pain in female * URINALYSIS REFLEX MICROSCOPIC REFLEX CULTURE(Performed 06/26/2015) * LIPASE BLOOD(Performed 06/26/2015) * TROPONIN I(Performed 06/26/2015) * COMPREHENSIVE METABOLIC PANEL(Performed 06/26/2015) * CBC W AUTO DIFFERENTIAL(Performed 06/26/2015) * EKG 12-LEAD(Performed 06/26/2015) Performed for Abdominal pain in female * XR CHEST 1VW(Performed 12/09/2008) Performed for Observ-Accident NEC * XR PELVIS 1 OR 2VW(Performed 12/09/2008) Performed for Observ-Accident NEC * CT CERVICAL SPINE WO CONTRAST(Performed 12/09/2008) Performed for Observ-Accident NEC * CT HEAD WO CONTRAST(Performed 12/09/2008) Performed for Observ-Accident NEC * TYPE + SCREEN PANEL(Performed 12/09/2008) * PTT(Performed 12/09/2008) * PT-INR(Performed 12/09/2008) * COMPREHENSIVE METABOLIC PANEL(Performed 12/09/2008) * AMYLASE BLOOD(Performed 12/09/2008) * CBC W AUTO DIFFERENTIAL(Performed 12/09/2008) Results * Mammo Bilat Diagnostic W Gigi (07/05/2024 11:51 AM GERIATRIC NURSING ASSISTANT) Anatomical Region Laterality Modality Breast Bilateral Mammography 07/05/2024 11:5 4 AM GERIATRIC NURSING ASSISTANT Impressions 07/05/2024 12:00 PM GERIATRIC NURSING ASSISTANT IMPRESSION: 1. There is no suspicious finding in either breast. Clinical follow-up is recommended for the patient's intermittent nonfocal breast pain. She may resume annual screening mammography in one year. 2. The exam results and management recommendations were discussed with the patient by Dr. Obregon at the time of study completion. OVERALL FINAL ASSESSMENT: BI-RADS Category 1: Negative. Continued clinical follow-up is recommended. > Interpreting Provider: Armida Obregon MD on 07/05/2024 12:00 PM Narrative 07/05/2024 12:00 PM GERIATRIC NURSING ASSISTANT EXAMINATION: BILATERAL DIGITAL DIAGNOSTIC MAMMOGRAM AND BILATERAL BREAST TOMOSYNTHESIS HISTORY: 54-year-old woman with intermittent nonfocal burning pain in the breasts bilaterally. The patient does not have focal pain today. COMPARISON: 01/25/2016, 01/30/2021 TECHNIQUE: BILATERAL full field digital breast tomosynthesis examination was performed with synthetic 2D images and computer aided detection (CAD). BREAST PARENCHYMAL COMPOSITION: There are scattered areas of fibroglandular density. MAMMOGRAM FINDINGS: There is no suspicious finding in either breast. Overall, there has been no significant interval change. The patient's clinical history was personally discussed with her by Dr. Obregon. Ultrasound is not indicated at this time as the patient is currently asymptomatic and her breast pain is nonfocal and intermittent. Rubia Zaldivar DO MAMMO ORDERABLES * URINALYSIS W/MICROSCOPIC NO CULTURE (05/10/2024 12:00 AM CDT) Only the most recent of3 resultswithin the time period is included. Specific [place] UA 1.024 1.005 - 1.030 [facility] INSURANCE BILL pH UA 7.5 5.0 - 7.5 [facility] INSURANCE BILL Color UA Yellow Yellow [facility] INSURANCE BILL Appearance Clear Clear [facility] INSURANCE BILL Leukocyte UA Negative Negative [facility] INSURANCE BILL Protein UA Trace Negative/Tra ce [facility] INSURANCE BILL Glucose UA Negative Negative [facility] INSURANCE BILL Ketone UA Negative Negative [facility] INSURANCE BILL Occult Blood Urine Negative Negative [facility] INSURANCE BILL Bilirubin UA Negative Negative [facility] INSURANCE BILL Urobilinogen 0.2 0.2 - 1.0 mg/dL [facility] INSURANCE BILL Nitrite UA Negative Negative [facility] INSURANCE BILL Microscopic Examination Urine Comment [facility] INSURANCE BILL Comment:Microscopic follows if indicated. Microscopic Examination Urine See below: [facility] INSURANCE BILL Comment: Microscopic was indicated and was performed. Performed at: [facility] [address] [id number] Cell Geneticist: Dwight Lovett PhD, Phone: [phone] WBC UA 0-5 0 - 5 /hpf [facility] INSURANCE BILL RBC UA 0-2 0 - 2 /hpf [facility] INSURANCE BILL Epithelial Cells (non renal) 0-10 0 - 10 /hpf [facility] INSURANCE BILL Casts ua None seen None seen /lpf [facility] INSURANCE BILL Bacteria UA Few None seen/Few [facility] INSURANCE BILL 05/10/2024 05/10/2024 Narrative [facility] INSURANCE BILL - 05/11/2024 8:20 AM CDT Performed at: [facility] [address] [id number] Cell Geneticist: Dwight Lovett PhD, Phone: [phone] Fabi Pulliam MD LAB - URINALYSIS OR DERABLES [facility] INSURANCE BILL [address] [place] [address] * CHLAMYDIA + GC + TRICH DNA AMPL (05/10/2024 12:00 AM CDT) Only the most recent of2 resultswithin the time period is included. Chlamydia trachomatis TRISTON Negative Negative [facility] ACCOUNT BILL GC DNA Probe Negative Negative [facility] ACCOUNT BILL Trichomonas vaginalis by TRISTON Negative Negative [facility] ACCOUNT BILL 05/10/2024 05/10/2024 Narrative [facility] ACCOUNT BILL - 05/12/2024 6:13 AM CDT Performed at: - [facility] [id number] Cell Geneticist: Urvashi Reilly MD, Phone: [phone] Fabi Pulliam MD LAB - MICROBIOLOGY ORDERABLES Performing Organization Address [facility] Co de Phone Number [facility] ACCOUNT BILL [address] [place] [address] * CULTURE URINE COMPREHENSIVE (05/10/2024 12:00 AM CDT) Urine Culture Comprehensive Final report [facility] ACCOUNT BILL Comment: Performed at: - [facility] [id number] Cell Geneticist: Dwight Lovett PhD, Phone: [phone] Result 1 Comment [facility] ACCOUNT BILL Comment: Mixed urogenital gama 2,000 Colonies/mL 05/10/2024 05/10/2024 Narrative [facility] ACCOUNT BILL - 05/12/2024 7:13 AM CDT Performed at: - [facility] [address] [id number] Cell Geneticist: Dwight Lovett PhD, Phone: [phone] Fabi Pulliam MD LAB - MICROBIOLOGY ORDERABLES Performing Organization Address [facility] Co de Phone Number [facility] ACCOUNT BILL [address] [place] [address] * XR Cervical Spine 2 or 3Vw (04/06/2024 4:54 PM CDT) Anatomical Region Laterality Modality Spine Radiographic [place] 04/06/2024 4:52 PM CDT Narrative 04/06/2024 4:53 PM CDT EXAM: THREE-VIEW CERVICAL SPINE INDICATION: Neck pain COMPARISON: 03/01/2023 FINDINGS: There is no compression fracture or subluxation. There is no osseous destruction. There is decreased intervertebral disc space height, degenerative endplate change and hypertrophic spurring from C5 to C7. There is facet arthropathy throughout the cervical region. > Interpreting Provider: Zuri Lundberg JR, MD on 04/06/2024 4:53 PM Procedure Note Zuri Lundberg MD - 04/06/2024 EXAM: THREE-VIEW CERVICAL SPINE INDICATION: Neck pain COMPARISON: 03/01/2023 FINDINGS: There is no compression fracture or subluxation. There is no osseous destruction. There is decreased intervertebral disc space height, degenerative endplate change and hypertrophic spurring from C5 to C7.There is facet arthropathy throughout the cervical region. > Interpreting Provider: Zuri Lundberg JR, MD on 04/06/2024 4:53 PM Edel Blanc MANAGER [employer]ITY [employer]S-TEACHER EMOTIONALLY IMPAIRED GEE GNOSTIC IMAGING ORDERABLES * XR Thoracic Spine 3Vw (04/06/2024 4:54 PM CDT) Anatomical Region Laterality Modality Spine Radiographic [place] 04/06/2024 4:52 PM CDT Impressions 04/06/2024 4:53 PM CDT IMPRESSION: Unremarkable radiographs of the thoracic spine. No vertebral compression fracture seen > Interpreting Provider: Rocio De Oliveira MD on 04/06/2024 4:53 PM Narrative 04/06/2024 4:53 PM CDT EXAM: TEMPORARY DATE: 04/06/2024 4:52 PM HISTORY: Back pain. COMPARISON: None. FINDINGS: Normal curvature of the thoracic spine is maintained. Vertebral body heights are maintained. Intervertebral disc spaces are maintained. No facet joint subluxation or dislocation is identified. No focal lytic or sclerotic osseous lesion seen. Cholecystectomy clips in place. Procedure Note Rocio De Oliveira MD - 04/06/2024 EXAM: TEMPORARY DATE: 04/06/2024 4:52 PM HISTORY: Back pain. COMPARISON: None. FINDINGS: Normal curvature of the thoracic spine is maintained.Vertebral body heights are maintained. Intervertebral disc spaces are maintained.No facet joint subluxation or dislocation is identified. No focal lytic or sclerotic osseous lesion seen. Cholecystectomy clips in place. IMPRESSION: Unremarkable radiographs of the thoracic spine. No vertebral compression fracture seen > Interpreting Provider: Rocio De Oliveira MD on 04/06/2024 4:53 PM Edel MartinezhermelindarichardToiMelissa MANAGER QU[employer] SYSTEMS-TEACHER EMOTIONALLY IMPAIRED GEE GNOSTIC IMAGING ORDERABLES * TSH (02/29/2024 3:57 PM CDT) Only the most recent of3 resultswithin the time period is included. TSH 1.4349 0.35 - 4.94 uIU/mL [facility] ACCOUNT BILL Comment:FASTING Blood BLOOD SPECIMEN / Unknown 02/29/2024 3:57 PM CDT 02/29/2024 Narrative Resulting Agency Comment Lab Testing performed at: [place] [address] [address] [id number] Rubia Zaldivar DO LAB - CHEMISTRY ORDE MICKEY Performing Organization Address [facility] Co de Phone Number [facility] ACCOUNT BILL [address] [place] [address] * T4 TOTAL (02/29/2024 3:57 PM CDT) Only the most recent of3 resultswithin the time period is included. T4 Total 7.71 4.9 - 11.7 ug/dL [facility] ACCOUNT BILL Comment: FASTING Blood BLOOD SPECIMEN / Unknown 02/29/2024 3:57 PM CDT 02/29/2024 Narrative Resulting Agency Comment Lab Testing performed at: [place] [address] [address] [id number] Rubia Zaldivar DO LAB - CHEMISTRY ORDE MICKEY Performing Organization Address City/[facility] Co de Phone Number [facility] ACCOUNT BILL [address] [place] [address] * (ABNORMAL) LIPID PROFILE (02/29/2024 3:57 PM CDT) Only the most recent of3 resultswithin the time period is included. Cholesterol 237(H) <200 mg/dL [facility] ACCOUNT BILL Triglycerides 104 <150 mg/dL [facility] ACCOUNT BILL HDL Cholesterol 67 >40 mg/dL [facility] ACCOUNT B[facility] VLDL Calculated 21 <=30 mg/dL [facility] ACCOUNT BILL LDL Calculated 149(H) <130 mg/dL [facility] ACCOUNT BILL Comment:FASTING Blood BLOOD SPECIMEN / Unknown 02/29/2024 3:57 PM CDT 02/29/2024 Narrative Resulting Agency Comment Lab Testing performed at: [facility] [address] [place] [id number] Rubia Zaldivar DO LAB - CHEMISTRY KRISTINA AREVALO Performing Organization Address [facility] Co de Phone Number [facility] ACCOUNT BILL [address] [place] [address] * CULTURE URINE (02/29/2024 3:56 PM CDT) Only the most recent of3 resultswithin the time period is included. Urine Culture Routine Final report [facility] ACCOUNT BILL Result 1 [facility] ACCOUNT BILL Comment: Mixed urogenital gama Less than 10,000 colonies/mL FASTING Urine URINE SPECIMEN OBTAINED BY CLEAN CATCH PROCEDURE / Unknown 02/29/2024 3:56 PM CDT 02/29/2024 Narrative Resulting Agency Comment [facility]: [facility] [address] [facility] [phone] Rubia Zaldivar DO LAB - MICROBIOLOGY O RDERAANDREY Performing Organization Address City/[facility]/ZIP Co de Phone Number [facility] ACCOUNT BILL [address] [place] [address] * URINALYSIS MICROSCOPIC ONLY REFLEXED (02/29/2024 3:55 PM CDT) Only the most recent of2 resultswithin the time period is included. WBC UA None seen 0 - 5 /hpf [facility] ACCOUNT BILL RBC UA 0-2 0 - 2 /hpf [facility] ACCOUNT BILL Epithelial Cells (non renal) 0-10 0 - 10 /hpf [facility] ACCOUNT BILL Epithelial Cells (renal) NOT AVAILABLE [facility] ACCOUNT BILL Comment:Result cannot be obt ained for this observation. Casts ua None seen None seen /lpf [facility] ACCOUNT BILL Casts UA NOT AVAILABLE [facility] ACCOUNT BILL Comment:Result cannot be obt ained for this observation. Crystals UA NOT AVAILABLE [facility] ACCOUNT BILL Comment:Result cannot be obt ained for this observation. Crystals UA NOT AVAILABLE [facility] ACCOUNT BILL Comment:Result cannot be obt ained for this observation. Mucus UA NOT AVAILABLE [facility] ACCOUNT BILL Comment:Result cannot be obt ained for this observation. Bacteria UA None seen None seen/Few [facility] ACCOUNT BILL Yeast UA NOT AVAILABLE [facility] ACCOUNT BILL Comment:Result cannot be obt ained for this observation. Trichomonas UA NOT AVAILABLE [facility] ACCOUNT BILL Comment:Result cannot be obt ained for this observation. Comment Urine NOT AVAILABLE [facility] ACCOUNT BILL Comment: FASTING Result cannot be obtained for this observation. 02/29/2024 3:55 PM CDT 02/29/2024 Narrative Resulting Agency Comment [facility] [address] [facility] [phone] Rubia Zaldivar DO LAB - URINALYSIS ORD ERABLES [facility] ACCOUNT BILL [address] [place] [address] * (ABNORMAL) HEMOGLOBIN A1C (02/29/2024 3:55 PM CDT) Only the most recent of4 resultswithin the time period is included. Hemoglobin A1c 5.8(H) <5.7 % [facility] ACCOUNT BILL Comment: AVERAGE GLUCOSE MG/DL BLOOD 120 mg/dL HbA1c Interpretation: Normal: < 5.7% Pre-diabetes: 5.7-6.4% Diabetes: Equal to or greater than 6.5% Test results diagnostic of diabetes should be repeated for c onfirmation. Treatment target values recommended by ADA and other clinica l organizations should be used to evaluate metabolic control in patients. This test should not replace glucose testing for patients wi th Type 1 diabetes, pediatric patients, or women. Falsely low HbA1c results may be observed in patients with c linical conditions that shorten erythrocyte life span or dec rease mean erythrocyte age such as the presence of unstable hemoglobin variants, elevated hemoglobin F level or other ca uses of hemolytic anemia. HbA1c may not accurately reflect glycemic control when clinical conditions that affect erythr ocyte survival are present. Severe Iron deficiency anemia m ay yield falsely high results. Hemoglobin A1c assay should not be used to diagnose or monitor diabetes in patients with malignancy, recent blood transfusion, chronic kidney or randall er disease. This method may yield falsely low results when hemoglobin (HbF) exceeds 5% in the specimen. The [employer] Al[employer] assay for the measurement of HbA1c is a [facility] Glycohemoglobin Standardization Program (NGSP) certi fied method. FASTING Blood BLOOD SPECIMEN / Unknown 02/29/2024 3:55 PM CDT 02/29/2024 Narrative Resulting Agency Comment Lab Testing performed at: [address] [place]ham [place] [phone] Rubia Zaldivar DO LAB - CHEMISTRY ORDE MICKEY Performing Organization Address City/[facility] Co de Phone Number [facility] ACCOUNT BILL [address] [place] [address] * MAGNESIUM BLOOD (02/29/2024 3:55 PM CDT) Only the most recent of4 resultswithin the time period is included. Magnesium 2.4 1.6 - 2.6 mg/dL [facility] ACCOUNT BILL Comment: FASTING Blood BLOOD SPECIMEN / Unknown 02/29/2024 3:55 PM CDT 02/29/2024 Narrative Resulting Agency Comment Lab Testing performed at: [address] [place]ubham [place] [phone] Rubia Zaldivar DO LAB - CHEMISTRY ORDE MICKEY Performing Organization Address City/[facility]/ZIP Co de Phone Number [facility] ACCOUNT BILL [address] [place] [address] * (ABNORMAL) C-REACTIVE PROTEIN (02/23/2024 2:40 PM CDT) Only the most recent of6 resultswithin the time period is included. C-Reactive Protein 0.83(H) <=0.50 mg/dL [facility] ACCOUNT BILL Blood BLOOD SPECIMEN / Unknown 02/23/2024 2:40 PM CDT 02/23/2024 Narrative Resulting Agency Comment Lab Testing performed at: [address] Shubham [place] [phone] Kadie Keating MD LAB - CHEMISTRY ORDE RABLES Performing Organization Address City/[facility]/ZIP Co de Phone Number [facility] ACCOUNT BILL [address] [place] [address] * (ABNORMAL) ERYTHROCYTE SEDIMENTATION RATE (02/23/2024 2:40 PM CDT) Only the most recent of10 resultswithin the time period is included. Pathologist [facility] Erythrocyte Sedimentation Rate Westergren 41(H) 0 - 30 MM/HR [facility] ACCOUNT BILL Blood BLOOD SPECIMEN / Unknown 02/23/2024 2:40 PM CDT 02/23/2024 Narrative Resulting Agency Comment Lab Testing performed at: [address] Shubham CORT[place] [id number] Kadie Keating MD LAB - HEMATOLOGY ORD ERABLES [facility] ACCOUNT BILL [address] [place] [address] * (ABNORMAL) CBC WITH DIFFERENTIAL (02/23/2024 2:40 PM CDT) Only the most recent of18 resultswithin the time period is included. WBC 7.2 4.0 - 10.7 x10E9/L [facility] ACCOUNT BILL RBC 5.44(H) 3.90 - 5.20 x10E12/L [facility] ACCOUNT BILL Hemoglobin 11.5(L) 11.9 - 15.8 g/dL [facility] ACCOUNT BILL Hematocrit 37.6 34.8 - 46.1 % [facility] ACCOUNT BILL MCV 69.1(L) 80.0 - 98.0 fL [facility] ACCOUNT BILL MCH 21.1(L) 26.7 - 33.6 pg [facility] ACCOUNT BILL MCHC 30.6(L) 31.7 - 36.3 g/dL [facility] ACCOUNT BILL RDW 15.7(H) 11.3 - 14.8 % [facility] ACCOUNT BILL Platelet Count 342 150 - 420 x10E9/L [facility] ACCOUNT BILL Comment:MPV (CS) 10.9 fL 7. 8-11.4 Granulocytes % 52.0 41.0 - 74.0 % [facility] ACCOUNT BILL Lymphocytes % 34.1 17.0 - 47.0 % [facility] ACCOUNT BILL Monocytes % 7.0 3.0 - 11.0 % [facility] ACCOUNT BILL Eosinophils % 5.4 0.0 - 7.0 % [facility] ACCOUNT BILL Basophils % 1.2 0.0 - 1.6 % [facility] ACCOUNT BILL Granulocytes Absolute 3.76 1.60 - 7.50 x10E9/L [facility] ACCOUNT BILL Lymphocytes Absolute 2.47 1.00 - 4.40 x10E9/L [facility] ACCOUNT BILL Monocytes Absolute 0.51 0.15 - 1.00 x10E9/L [facility] ACCOUNT BILL Eosinophils Absolute 0.39 0.00 - 0.60 x10E9/L [facility] ACCOUNT BILL Basophils Absolute 0.09 0.00 - 0.13 x10E9/L [facility] ACCOUNT BILL Immature Granulocytes 0.3 0.0 - 1.0 % [facility] ACCOUNT BILL Blood BLOOD SPECIMEN / Unknown 02/23/2024 2:40 PM CDT 02/23/2024 Narrative Resulting Agency Comment Lab Testing performed at: [place] [id number] [place] [id number] Kadie Keating MD LAB - HEMATOLOGY ORD ERABLES [facility] ACCOUNT BILL [address] [place] [address] * (ABNORMAL) COMPREHENSIVE METABOLIC PANEL (02/23/2024 2:40 PM CDT) Only the most recent of18 resultswithin the time period is included. Glucose 113(H) 70 - 105 mg/dL [facility] ACCOUNT BILL BUN 14 7 - 26 mg/dL [facility] ACCOUNT BILL Creatinine 0.82 0.57 - 1.11 mg/dL [facility] ACCOUNT BILL eGFR by CKD-EPI 85(L) >=90 mL/min/1.7 3 m2 [facility] ACCOUNT BILL Sodium 144 136 - 145 mmol/L [facility] ACCOUNT BILL Potassium 4.0 3.5 - 5.1 mmol/L [facility] ACCOUNT BILL Chloride 109(H) 98 - 107 mmol/L [facility] ACCOUNT BILL CO2 24 22 - 29 mmol/L [facility] ACCOUNT BILL Calcium 9.8 8.4 - 10.4 mg/dL [facility] ACCOUNT BILL Protein Total 7.4 6.4 - 8.3 gm/dL [facility] ACCOUNT BILL Albumin 3.7 3.4 - 5.0 gm/dL [facility] ACCOUNT BILL Bilirubin Total 0.2 0.2 - 1.2 mg/dL [facility] ACCOUNT BILL Alkaline Phosphatase 101 40 - 150 U/L [facility] ACCOUNT BILL AST 17 5 - 34 U/L [facility] ACCOUNT BILL ALT 15 0 - 55 U/L [facility] ACCOUNT BILL Blood BLOOD SPECIMEN / Unknown 02/23/2024 2:40 PM CDT 02/23/2024 Narrative Resulting Agency Comment Lab Testing performed at: [facility] [address] [facility] [address] [place] [phone] Kadie Keating MD LAB - CHEMISTRY KRISTINA AREVALO [facility] ACCOUNT BILL [address] [place] [address] * (ABNORMAL) VITAMIN D 25-HYDROXY (11/18/2023 11:51 AM CDT) Only the most recent of4 resultswithin the time period is included. Vitamin D, 25 Hydroxy 9.1(L) 30.0 - 100.0 ng/mL [facility] ACCOUNT BILL Comment: Vitamin D deficiency has been defined by the [place] of Medicine and an Endocrine Society practice guideline as a level of serum 25-OH vitamin D less than 20 ng/mL (1,2). The Endocrine Society went on to further define vitamin D insufficiency as a level between 21 and 29 ng/mL (2). 1. IOM ([place] of Medicine). 2010. Dietary reference intakes for calcium and D. [place]: The National Academies Press. 2. Logan MF, Gilbert PACHECO, Dari ZAMORA, et al. Evaluation, treatment, and prevention of vitamin D deficiency: an Endocrine Society clinical practice guideline. JCEM. 2010; 96(3):1911-30. Blood BLOOD SPECIMEN / Unknown 11/18/2023 11:51 AM CDT 11/18/2023 Narrative Resulting Agency Comment Lab Testing performed at: [employer] [place] [id number] [facility] [phone] Kadie Keating MD LAB - CHEMISTRY KRISTINA AREVALO [facility] ACCOUNT BILL [address] [place] [address] * QUANTIFERON TB-GOLD (11/18/2023 11:51 AM CDT) QuantiFERON Incubation Incubation performed. [facility] ACCOUNT BILL QuantiFERON Criteria [facility] ACCOUNT BILL Comment: QuantiFERON-TB Gold Plus is a qualitative indirect test for M tuberculosis infection (including disease) and is intended for use in conjunction with risk assessment, radiography, and other medical and diagnostic evaluations. The QuantiFERON-TB Gold Plus result is determined by subtracting the Nil value from either TB antigen (Ag) value. The Mitogen tube serves as a control for the test. QuantiFERON TB1 Ag Value 0.01 IU/mL [facility] ACCOUNT BILL QuantiFERON TB2 Ag Value 0.02 IU/mL [facility] ACCOUNT BILL QuantiFERON Nil Value 0.04 IU/mL [facility] ACCOUNT BILL QuantiFERON Mitogen Value >10.00 IU/mL [facility] ACCOUNT BILL QuantiFERON-TB Gold Plus Negative Negative [facility] ACCOUNT BILL Comment: No response to M tuberculosis antigens detected. Infection with M tuberculosis is unlikely, but high risk individuals should be considered for additional testing (ATS/IDSA/CDC Clinical Practice Guidelines, 2017). The reference range is an Antigen minus Nil result of <0.35 IU/mL. Chemiluminescence immunoassay methodology Blood BLOOD SPECIMEN / Unknown 11/18/2023 11:51 AM CDT 11/18/2023 Narrative Resulting Agency Comment Lab Testing performed at: [facility] [place] [id number] [facility] [phone] Kadie Keating MD LAB - CHEMISTRY KRISTINA AREVALO Performing Organization Address [facility] de Phone Number [facility] ACCOUNT BILL [address] [place] [address] * HEPATITIS SCREEN ACUTE ([facility]) (11/18/2023 11:50 AM CDT) Only the most recent of2 resultswithin the time period is included. Hepatitis A Virus Antibody IgM Non Reactive Non Reactive [facility] ACCOUNT BILL Hepatitis B Virus Surface Antigen Non Reactive Non Reactive [facility] ACCOUNT BILL Hepatitis B Core Virus Antibody IgM Non Reactive Non Reactive [facility] ACCOUNT BILL Hepatitis C Antibody Non Reactive Non Reactive [facility] ACCOUNT BILL Comment: Non Reactive - Antibodies to Hepatitis C virus (HCV) were no t detected, result does not exclude early acute HCV infection. Blood BLOOD SPECIMEN / Unknown 11/18/2023 11:50 AM CDT 11/18/2023 Narrative Resulting Agency Comment Lab Testing performed at: [place] [address] [place] [phone] Kadie Keating MD LAB - CHEMISTRY KRISTINA AREVALO Performing Organization Address [facility] de Phone Number [facility] ACCOUNT BILL [address] [place] [address] * INTERPRETATION REFLEXED (11/18/2023 11:50 AM CDT) Only the most recent of2 resultswithin the time period is included. Interpretation [facility] ACCOUNT BILL Comment: Not infected with HCV unless early or acute infection is suspected (which may be delayed in an immunocompromised individual), or other evidence exists to indicate HCV infection. 11/18/2023 11:5 0 AM CDT 11/18/2023 Narrative Resulting Agency Comment Lab Testing performed at: [facility] [place] [address] [facility] [phone] Kadie Keating MD LAB - SEROLOGY ORDER ALEX [facility] ACCOUNT [place] [address] [place] [address] * CT SINUS WO CONTRAST (10/16/2023 10:16 AM GERIATRIC NURSING ASSISTANT) Only the most recent of2 resultswithin the time period is included. Anatomical Region Laterality Modality Head Computed Tomogra phy 10/16/2023 10:4 1 AM GERIATRIC NURSING ASSISTANT Impressions 10/16/2023 10:52 AM GERIATRIC NURSING ASSISTANT IMPRESSION: Minimal inflammatory changes around the right temporomandibular joint along the right masseter muscle and pterygoids. Correlation for pain in this region is recommended. Edited by Virginia Horvath on 10/16/2023 10:51 AM > Interpreting Provider: Dariel Devries MD on 10/16/2023 10:52 AM Narrative 10/16/2023 10:52 AM GERIATRIC NURSING ASSISTANT PROCEDURE: CT SINUS WO CONTRAST DATE/TIME OF EXAM: 10/16/2023 10:16 AM CLINICAL INFORMATION: None relevant/not provided if blank. Indication: M26.609: Unspecified temporomandibular joint disorder, unspecified side R22.0: Localized swelling, mass and lump, head M62.838: Other muscle spasm Additional History: COMPARISON: Comparison is made with the prior study of May 02, 2020. FINDINGS: Very mild mucosal thickening is seen in the maxillary sinuses. The ethmoid air cells appear patent. The frontal sinuses are hypoplastic but patent. Some minimal debris is seen in the sphenoid sinuses. The visible mastoids appear patent. Some scattered periapical lucencies are noted within the left maxilla. The bilateral ostiomeatal units are patent. The visualized sinuses and mastoid air cells are not opacified. The nasal septum is midline. The bilateral temporomandibular joints appear normal without evidence of severe degenerative change. Bilateral temporalis muscles appear normal. Bilateral masseter muscles appear mildly thickened bilaterally but otherwise unremarkable. There may be some minimal inflammatory changes along the right masseter with some very minimal stranding. Procedure Note Dariel Devries MD - 10/16/2023 PROCEDURE: CT SINUS WO CONTRAST DATE/TIME OF EXAM: 10/16/2023 10:16 AM CLINICAL INFORMATION: None relevant/not provided if blank. Indication: M26.609: Unspecified temporomandibular joint disorder, unspecified side R22.0: Localized swelling, mass and lump, head M62.838: Other muscle spasm Additional History: COMPARISON: Comparison is made with the prior study of May 02, 2020. FINDINGS: Very mild mucosal thickening is seen in the maxillary sinuses. Theethmoid air cells appear patent. The frontal sinuses are hypoplastic but patent. Some minimal debris is seen in the sphenoid sinuses. The visiblemastoids appear patent. Some scattered periapical lucencies are noted within the left maxilla. The bilateral ostiomeatal units are patent. The visualized sinuses and mastoid air cells are not opacified. The nasal septum is midline. The bilateral temporomandibular joints appear normal without evidence ofsevere degenerative change. Bilateral temporalis muscles appear normal.Bilateral masseter muscles appear mildly thickened bilaterally but otherwise unremarkable. There may be some minimal inflammatory changes along the right masseter with some very minimal stranding. IMPRESSION: Minimal inflammatory changes around the right temporomandibular jointalong the right masseter muscle and pterygoids. Correlation for pain in this region is recommended. Edited by Virginia Horvath on 10/16/2023 10:51 AM > Interpreting Provider: Dariel Devries MD on 10/16/2023 10:52 AM Rubia Zaldivar DO CT ORDERABLES * NM MYOCARD PERF REST STRESS (05/06/2023 11:32 AM CDT) Anatomical Region Laterality Modality Chest Nuclear Digisoni cs 05/06/2023 10:4 2 AM CDT Narrative Procedure Note Devaughn Palumbo MD - 05/10/[address] [address] [employer] Nuclear Myocardial Perfusion Scan Report Pat.Name: AIME VALLADARES Pat.ID: [id number] .Date: 05/06/2023 Refer.MD: devaughn Palumbo Exam Time: 10:42:00 AM Study Type:Nuclear Myocardial Perfusion Scan Age: 11 1970,52Y Sex: FEMALE Sonogrphr: Amber Tillman [facility] Pat. Stat.:Outpatient Reason for Study: Chest pain, Abnormal EKG History / Clinical: Chest pain Procedures: Lexiscan Perfusion Scan Race: 2 Visit ID: [id number] Nurse: Rama Munoz RN Clinical Symptoms:Chest pain ++++++++++++++++++++++++++++++++++++ SUMMARY: ++++++++++++++++++++++++++++++++++++ Examination of the stress and rest perfusion images reveals presence of mild mostly fixed apical thinning. This may be a normal variant. No other fixed or reversible perfusion defects are seen. No clear-cut evidence of ischemia. Gated SPECT images revealed normal left ventricular systolic function with a calculated ejection fraction of 69 percent. No regional wall motion abnormalities are seen. Conclusion 1. No clear-cut evidence of ischemia. 2. Normal left ventricular systolic function. ++++++++++++++++++++++++++++++++++++ STRESS: ++++++++++++++++++++++++++++++++++++ Baseline Vital Signs: Intervention Regadenoson Peak Dose 0.4 mg Atropine 0 Stress Test Results: Target HR 143 Symptoms and Complications: Signed 05/10/2023 02:07 PM Devaughn Palumbo MD, FACC Devaughn Palumbo MD NM ORDERABLES * STRESS TEST (05/06/2023 10:43 AM CDT) BSA 2.15 m2 [facility] Predicted METS 7.9 METS [facility] Target HR 143 bpm [facility] Max Age Predicted HR [address] [facility] [address] Depression (mm) 0 mm [facility] Anatomical Region Laterality Modality Cardiac Electrop hysiology Narrative 05/10/2023 10:43 AM CDT ECG: The ECG was negative for ischemia. Myocardial perfusion imaging reported separately. Stress Findings A pharmacological stress test was performed using regadenoson (0.4 mg). The patient reported dyspnea and headaches during the stress test. The patient reached the end of the protocol. ECG Resting ECG: Normal. Normal sinus rhythm. Stress ECG: No clinically relevant ST-segment deviation. Exhibits no arrhythmias. The ECG was negative for ischemia. Devaughn Palumbo MD CARDIAC SERVICES CUP ID * ECHO COMPLETE (04/26/2023 10:49 AM CDT) BSA 2.1399420 m2 SSM CV FUJ I PACS LVOT stroke vol 47.64 mL SSM CV FUJI PACS LVOT stroke vol index 21.77 ml/m2 SSM CV FUJI PACS AV envelope time 350 ms SSM CV FUJI PACS LVOT envelope time 327 ms SSM CV FUJI PACS IVSd MM 1.164 0.6 - 0.9 cm SSM CV FUJI PACS LVOT diam 2.0 cm SSM CV FUJ I PACS LVOT area 3.13 cm2 SSM CV FUJ I PACS LV mass m-mode 177.349 67 - 162 g SSM CV FUJI PACS LV mass index m-mode 81.03 43 - 95 g/m2 SSM CV FUJI PACS MV E pk norma 63.98 cm/s SSM CV F UJI PACS MV avg E/e' ratio 8.746 SS M CV FUJI PACS MV A pk norma 53.111 cm/s SSM CV F UJI PACS MV E A ratio 1.21 SSM CV FUJI PACS MV E' lateral norma 8.645 cm/s SS M CV FUJI PACS MV DT 213 ms SSM CV FUJ I PACS MV E' septal norma 6.34 cm/s SSM CV FUJI PACS MV E/e' septal 10.091 SSM C V FUJI PACS MV E/e' lateral 7.401 SSM CV FUJI PACS LA vol BP 42.661 mL SSM CV FUJ I PACS TR pk nroma 238.6 cm/s SSM CV FUJ I PACS LVOT pk norma 0.63 m/s SSM CV F UJI PACS LVOT mn norma 0.47 m/s SSM CV F UJI PACS LVOT mn grad 0.9 mmHg SSM CV FUJI PACS LVOT Cardiac Output 3.129 l/min SSM CV FUJI PACS LVOT Cardiac Index 1.43 l/min/m2 SSM CV FUJI PACS LA vol index 19.5 16 - 34 mL/m2 SSM CV FUJI PACS LA vol BP A-L 46.412 mL SSM CV FUJI PACS TV S' norma 15.513 SSM CV FUJ I PACS TAPSE 2.811 1.7 cm SSM CV FUJ I PACS AV mn grad 4 mmHg SSM CV FU JI PACS AV pk grad 8 mmHg SSM CV FU JI PACS AV mn norma 0.93 m/s SSM CV FUJ I PACS AV pk norma 1.40 m/s SSM CV FUJ I PACS AV VTI 32.505 cm SSM CV FUJ I PACS LVOT pk grad 1.569 mmHg SSM CV FUJI PACS LVOT VTI 15.241 cm SSM CV [facility] I PACS AV area cont VTI 1.5 cm2 SSM CV FUJI PACS AV area pk norma 1.4 cm2 SSM C V FUJI PACS AV Doppler norma index pk norma 0.448 SSM CV FUJI PACS LVOT stroke vol index 21.8 mL/m2 SSM CV FUJI PACS Dimensionless Index 0.469 SSM CV FUJI PACS MV decel slope 300.522 cm/s2 SSM C V FUJI PACS sPAP 25.8 mmHg SSM CV FUJ I PACS RVSP 25.8 mmHg SSM CV FUJ I PACS RAP 3.0 mmHg SSM CV FUJ I PACS TR pk grad 23 mmHg SSM CV FU JI PACS dPAP 5.5 mmHg SSM CV FUJ I PACS WI pk norma 79.5 cm/s SSM CV FUJ I PACS WI pk grad 3 mmHg SSM CV FU JI PACS PV mn grad 2 mmHg SSM CV FU JI PACS PV pk norma 97.805 cm/s SSM CV FUJ I PACS PV pk grad 3 mmHg SSM CV FU JI PACS PV mn norma 62.936 cm/s SSM CV FUJ I PACS Ascending aorta 2.88 cm SSM CV FUJI PACS IVC size 1.6 cm SSM CV FUJ I PACS LA ESV INDEX (BP) 19.49 ml/m2 SS M CV FUJI PACS LA ESV A4C MOD Index 18 ml/m2 SSM CV FUJI PACS LA ESV A2C MOD Index 22 ml/m2 SSM CV FUJI PACS Prox Asc Ao Diameter Index 1.315 cm SSM CV FUJI PACS EF M-Mode 69 % SSM CV FUJ I PACS LA Size 3.373 cm SSM CV FUJ I PACS Anatomical Region Laterality Modality Ultrasound Narrative 04/29/2023 10:50 AM CDT Left Ventricle: Left ventricle size is normal. Normal wall thickness. Normal systolic function with a visually estimated EF of 60 - 65%. Normal wall motion. Normal diastolic function. Left Ventricle Left ventricle size is normal. Normal wall thickness. Normal systolic function with a visually estimated EF of 60 - 65%. Normal wall motion. Normal diastolic function. Right Ventricle Right ventricle size is normal. Normal systolic function. Left Atrium Left atrium size is normal. Left atrium volume index is 19.5 mL/m2. Right Atrium Right atrium size is normal. IVC/SVC IVC diameter is less than or equal to 21 mm and decreases greater than 50% during inspiration; therefore the estimated right atrial pressure is normal (~3 mmHg). Mitral Valve Valve structure is normal. No restricted motion. No regurgitation. No stenosis. Tricuspid Valve Valve structure is normal. No restricted motion. Trace regurgitation. No stenosis. Aortic Valve Valve structure is trileaflet. No restricted motion. No regurgitation. No stenosis. Pulmonic Valve Valve structure is normal. No restricted motion. No regurgitation. No stenosis. Ascending Aorta Normal sized sinus of Valsalva (aortic root) and ascending aorta. Pericardium No pericardial effusion. Study Details Study quality was adequate. A complete 2D, color Doppler, spectral Doppler and M-mode echocardiogram was performed. The apical, parasternal, subcostal and suprasternal views were obtained. Procedure Note Devaughn Palumbo MD - 04/29/2023 Left Ventricle: Left ventricle size is normal. Normal wall thickness.Normal systolic function with a visually estimated EF of 60 - 65%. Normalwall motion. Normal diastolic function. Devaughn Palumbo MD ECHO CUPID * XR HAND RIGHT 3VW OR MORE (03/01/2023 12:41 PM CDT) Only the most recent of3 resultswithin the time period is included. Anatomical Region Laterality Modality Wrist / Hand Radiographic [place] ging 03/01/2023 12:4 6 PM CDT Impressions 03/01/2023 12:49 PM CDT IMPRESSION: No joint effusion. No hand erosive arthropathy. > Interpreting Provider: Orion Longoria MD on 03/01/2023 12:49 PM Narrative 03/01/2023 12:49 PM CDT PROCEDURE: XR FOREARM RIGHT 2VW, XR ELBOW RIGHT 3VW OR MORE, XR HAND RIGHT 3VW OR MORE, DATE/TIME OF EXAM: 03/01/2023 12:42 PM, LOCATION [facility] INDICATION: M79.601: Pain in right arm ADDITIONAL CLINICAL INFORMATION: Ordering Provider Reason For Exam: Technologist Note: Additional: Elbow and forearm pain COMPARISON: None. 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 The shafts of the radius and ulna are intact. Normal sagittal alignment of the lunate relative to the capitate and radius. Right elbow: The radiocapitellar alignment is normal. No elbow joint effusion no fracture or bone destructive process. Right hand: Comparison February 04, 2021 The carpal metacarpal alignment is normal. The MCP joint spacing is normal. The interphalangeal joint spacing, normal. No fracture, malalignment, or periarticular demineralization.: Procedure Note Orion Longoria MD - 03/01/2023 PROCEDURE: XR FOREARM RIGHT 2VW, XR ELBOW RIGHT 3VW OR MORE, XR HANDRIGHT 3VW OR MORE, DATE/TIME OF EXAM: 03/01/2023 12:42 PM, LOCATION [facility] INDICATION: M79.601: Pain in right arm ADDITIONAL CLINICAL INFORMATION: Ordering Provider Reason For Exam: Technologist Note: Additional: Elbow and forearm pain COMPARISON: None. FINDINGS: Right forearm: Congenital fusion of the lunate to thetriquetral bone. The shafts of the radius and ulna are intact. Normal sagittal alignment of the lunate relative to the capitate and radius. Right elbow: The radiocapitellar alignment is normal. No elbow joint effusion no fracture or bone destructive process. Right hand: Comparison February 04, 2021 The carpal metacarpal alignment is normal. The MCP joint spacing isnormal. The interphalangeal joint spacing, normal. No fracture, malalignment, or periarticular demineralization.: IMPRESSION: No joint effusion. No hand erosive arthropathy. > Interpreting Provider: Orion Longoria MD on 03/01/2023 12:49 PM Caridad Holloway MANAGER QUALITY SYSTEMS-TEACHER EMOTIONALLY IMPAIRED DIAGNOSTIC IMAGING ORDERABLES * XR FOREARM RIGHT 2VW (03/01/2023 12:41 PM CDT) Anatomical Region Laterality Modality Upper Extremity Radiographic [place] 03/01/2023 12:4 6 PM CDT Impressions 03/01/2023 12:49 PM CDT IMPRESSION: No joint effusion. No hand erosive arthropathy. > Interpreting Provider: Orion Longoria MD on 03/01/2023 12:49 PM Narrative 03/01/2023 12:49 PM CDT PROCEDURE: XR FOREARM RIGHT 2VW, XR ELBOW RIGHT 3VW OR MORE, XR HAND RIGHT 3VW OR MORE, DATE/TIME OF EXAM: 03/01/2023 12:42 PM, LOCATION [facility] INDICATION: M79.601: Pain in right arm ADDITIONAL CLINICAL INFORMATION: Ordering Provider Reason For Exam: Technologist Note: Additional: Elbow and forearm pain COMPARISON: None. 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 The shafts of the radius and ulna are intact. Normal sagittal alignment of the lunate relative to the capitate and radius. Right elbow: The radiocapitellar alignment is normal. No elbow joint effusion no fracture or bone destructive process. Right hand: Comparison February 04, 2021 The carpal metacarpal alignment is normal. The MCP joint spacing is normal. The interphalangeal joint spacing, normal. No fracture, malalignment, or periarticular demineralization.: Procedure Note Orion Longoria MD - 03/01/2023 PROCEDURE: XR FOREARM RIGHT 2VW, XR ELBOW RIGHT 3VW OR MORE, XR HANDRIGHT 3VW OR MORE, DATE/TIME OF EXAM: 03/01/2023 12:42 PM, LOCATION [facility] INDICATION: M79.601: Pain in right arm ADDITIONAL CLINICAL INFORMATION: Ordering Provider Reason For Exam: Technologist Note: Additional: Elbow and forearm pain COMPARISON: None. FINDINGS: Right forearm: Congenital fusion of the lunate to thetriquetral bone. The shafts of the radius and ulna are intact. Normal sagittal alignment of the lunate relative to the capitate and radius. Right elbow: The radiocapitellar alignment is normal. No elbow joint effusion no fracture or bone destructive process. Right hand: Comparison February 04, 2021 The carpal metacarpal alignment is normal. The MCP joint spacing isnormal. The interphalangeal joint spacing, normal. No fracture, malalignment, or periarticular demineralization.: IMPRESSION: No joint effusion. No hand erosive arthropathy. > Interpreting Provider: Orion Longoria MD on 03/01/2023 12:49 PM Caridad Holloway MANAGER QUALITY SYSTEMS-TEACHER EMOTIONALLY IMPAIRED DIAGNOSTIC IMAGING ORDERABLES * XR ELBOW RIGHT 3VW OR MORE (03/01/2023 12:41 PM CDT) Anatomical Region Laterality Modality Upper Extremity Radiographic [place] 03/01/2023 12:4 6 PM CDT Impressions 03/01/2023 12:49 PM CDT IMPRESSION: No joint effusion. No hand erosive arthropathy. > Interpreting Provider: Orion Longoria MD on 03/01/2023 12:49 PM Narrative 03/01/2023 12:49 PM CDT PROCEDURE: XR FOREARM RIGHT 2VW, XR ELBOW RIGHT 3VW OR MORE, XR HAND RIGHT 3VW OR MORE, DATE/TIME OF EXAM: 03/01/2023 12:42 PM, LOCATION [facility] INDICATION: M79.601: Pain in right arm ADDITIONAL CLINICAL INFORMATION: Ordering Provider Reason For Exam: Technologist Note: Additional: Elbow and forearm pain COMPARISON: None. 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 The shafts of the radius and ulna are intact. Normal sagittal alignment of the lunate relative to the capitate and radius. Right elbow: The radiocapitellar alignment is normal. No elbow joint effusion no fracture or bone destructive process. Right hand: Comparison February 04, 2021 The carpal metacarpal alignment is normal. The MCP joint spacing is normal. The interphalangeal joint spacing, normal. No fracture, malalignment, or periarticular demineralization.: Procedure Note Orion Longoria MD - 03/01/2023 PROCEDURE: XR FOREARM RIGHT 2VW, XR ELBOW RIGHT 3VW OR MORE, XR HANDRIGHT 3VW OR MORE, DATE/TIME OF EXAM: 03/01/2023 12:42 PM, LOCATION [facility] INDICATION: M79.601: Pain in right arm ADDITIONAL CLINICAL INFORMATION: Ordering Provider Reason For Exam: Technologist Note: Additional: Elbow and forearm pain COMPARISON: None. FINDINGS: Right forearm: Congenital fusion of the lunate to thetriquetral bone. The shafts of the radius and ulna are intact. Normal sagittal alignment of the lunate relative to the capitate and radius. Right elbow: The radiocapitellar alignment is normal. No elbow joint effusion no fracture or bone destructive process. Right hand: Comparison February 04, 2021 The carpal metacarpal alignment is normal. The MCP joint spacing isnormal. The interphalangeal joint spacing, normal. No fracture, malalignment, or periarticular demineralization.: IMPRESSION: No joint effusion. No hand erosive arthropathy. > Interpreting Provider: Orion Longoria MD on 03/01/2023 12:49 PM Caridad Holloway MANAGER [employer]TEACHER EMOTIONALLY IMPAIRED DIAGNOSTIC IMAGING ORDERABLES * XR CERVICAL SPINE 4 OR 5VW (03/01/2023 12:41 PM CDT) Anatomical Region Laterality Modality Spine Radiographic [place] ging 03/01/2023 12:5 1 PM CDT Impressions 03/01/2023 3:54 PM CDT IMPRESSION: Degenerative disc changes C5-6 more so than C6-7. No fracture, malalignment, or prevertebral soft tissue swelling. Edited by Virginia Horvath on 03/01/2023 1:19 PM > Interpreting Provider: Orion Longoria MD on 03/01/2023 3:54 PM Narrative 03/01/2023 3:54 PM CDT PROCEDURE: XR CERVICAL SPINE 4 OR 5VW DATE/TIME OF EXAM: 03/01/2023 12:42 PM CLINICAL INFORMATION: Right arm pain and swelling x 1 week. No specific injury. 52-year-old female. Indication: M79.601: Pain in right arm M54.2: Cervicalgia Additional History: COMPARISON: None. FINDINGS: Posterior spurring is mild at the C5-6 level. Anterior endplate spurs C6-7. Facet arthropathy C7-T1. The posterior laminar line is normal. No bony impingement upon the neural foramen. The lateral masses of C1 and C2 are aligned. Disc space height loss C5-6 and C6-7 Procedure Note Orion Longoria MD - 03/01/2023 PROCEDURE: XR CERVICAL SPINE 4 OR 5VW DATE/TIME OF EXAM: 03/01/2023 12:42 PM CLINICAL INFORMATION: Right arm pain and swelling x 1 week. No specific injury. 52-year-old female. Indication: M79.601: Pain in right arm M54.2: Cervicalgia Additional History: COMPARISON: None. FINDINGS: Posterior spurring is mild at the C5-6 level. Anterior endplate spursC6-7. Facet arthropathy C7-T1. The posterior laminar line is normal. No bony impingement upon the neural foramen. The lateral masses of C1 and C2 are aligned. Disc space height loss C5-6 and C6-7 IMPRESSION: Degenerative disc changes C5-6 more so than C6-7. No fracture, malalignment, or prevertebral soft tissue swelling. 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 The QuantiFERON-TB Gold Plus result is determined by subtracting the Nil value from either TB antigen (Ag) value. The Mitogen tube serves as a control for the test. QuantiFERON TB1 Ag Value 0.07 IU/mL [facility] ACCOUNT BILL QuantiFERON TB2 Ag Value 0.05 IU/mL [facility] ACCOUNT BILL QuantiFERON Nil Value 0.09 IU/mL [facility] ACCOUNT BILL QuantiFERON Mitogen Value >10.00 IU/mL [facility] ACCOUNT BILL QuantiFERON-TB Gold Plus Negative Negative [facility] ACCOUNT BILL Comment: No response to M tuberculosis antigens detected. Infection with M tuberculosis is unlikely, but high risk individuals should be considered for additional testing (ATS/IDSA/CDC Clinical Practice Guidelines, 2017). The reference range is an Antigen minus Nil result of <0.35 IU/mL. The specimen received for QuantiFERON testing was incubated by the ordering institution. Specific procedures outlined in our Directory of Services and in the package insert for the QuantiFERON Gold (In Tube) test must be followed to enable for proper stimulation of cells for the production of interferon gamma. Chemiluminescence immunoassay methodology FASTING Blood BLOOD SPECIMEN / Unknown 01/18/2023 10:17 AM CDT 01/18/2023 Narrative Resulting Agency Comment Lab Testing performed at: [facility] [address] [facility] [phone] Rubia Zaldivar DO LAB - CHEMISTRY KRISTINA AREVALO [facility] ACCOUNT BILL [address] [place] [address] * VITAMIN B12 (01/18/2023 10:17 AM CDT) Vitamin B12 701 232 - 1,245 pg/mL [facility] ACCOUNT BILL Comment:FASTING Blood BLOOD SPECIMEN / Unknown 01/18/2023 10:17 AM CDT 01/18/2023 Narrative Resulting Agency Comment Lab Testing performed at: [facility] [address] [facility] [phone] Rubia Zaldivar DO LAB - CHEMISTRY ORDE RABFRANCOIS [facility] ACCOUNT BILL [address] [address] * CARDIAC EKG ORDER (12/18/2022 8:01 AM CDT) Only the most recent of5 resultswithin the time period is included. Narrative 12/18/2022 8:01 AM CDT Ordered by an unspecified provider. Scanned Document CARDIAC SERVICES ORD ERABLES * CT HEAD WO CONTRAST (12/16/2022 4:44 PM CDT) Only the most recent of2 resultswithin the time period is included. Anatomical Region Laterality Modality Head Computed Tomogra phy 12/16/2022 4:46 PM CDT Impressions 12/16/2022 4:46 PM CDT IMPRESSION: NO ACUTE INTRACRANIAL ABNORMALITIES. > Interpreting Provider: Macho Tan MD on 12/16/2022 4:46 PM Narrative 12/16/2022 4:[address] SCAN OF THE BRAIN WITHOUT CONTRAST CLINICAL INDICATION: Acute altered mental status and dizziness. COMPARISON: CT brain 12/08/2008 TECHNIQUE: Axial CT imaging of the brain was performed without contrast. Coronal and sagittal multiplanar reformatted images were created. All CT scans at [facility] are performed using dose optimization techniques as appropriate to a performed exam to include AEC and Adjustment of mA and/or kV according to patient size. FINDINGS: There is no evidence of acute intracranial hemorrhage or recent cortical infarction. There is no mass or midline shift. Ventricular and sulcal size is within normal limits. There are no extra-axial fluid collections. The bony calvarium is intact. The paranasal sinuses are well aerated. Procedure Note Macho Tan MD - 12/16/2022 CT SCAN OF THE BRAIN WITHOUT CONTRAST CLINICAL INDICATION: Acute altered mental status and dizziness. COMPARISON: CT brain 12/08/2008 TECHNIQUE: Axial CT imaging of the brain was performed without contrast. Coronal and sagittal multiplanar reformatted images were created. All CT scans at [facility] are performed using dose optimization techniques as appropriate to a performed exam to include AEC and Adjustment of mAand/or kV according to patient size. FINDINGS: There is no evidence of acute intracranial hemorrhage or recent cortical infarction. There is no mass or midline shift. Ventricular and sulcalsize is within normal limits. There are no extra-axial fluid collections. The bony calvarium is intact. The paranasal sinuses are well aerated. IMPRESSION: NO ACUTE INTRACRANIAL ABNORMALITIES. > Interpreting Provider: Macho Tan MD on 12/16/2022 4:46 PM Dot Gunn PA-C CT ORDERABLES * TROPONIN I (12/16/2022 3:35 PM CDT) Only the most recent of15 resultswithin the time period is included. Pathologist [facility] Troponin I <0.010 <0.038 ng/mL 12/16/2022 4:05 PM CDT [facility] Blood BLOOD SPECIMEN / Unknown Venipuncture / Unknown 12/16/2022 3:35 PM CDT 12/16/2022 3:42 PM CDT Dot Gunn PA-C LAB - CHEMISTRY ORD ERABLES Performing Organization Address [facility] Co de Phone Number [facility] [address] [place] [address] * TSH REFLEX FREE T4 (12/16/2022 12:23 PM CDT) Pathologist [facility] TSH 0.537 0.350 - 4.940 uIU/mL 12/16/2022 1:45 PM CDT [facility] Blood BLOOD SPECIMEN / Unknown Venipuncture / Unknown 12/16/2022 12:23 PM CDT 12/16/2022 12:33 PM CDT Dot Gunn PA-C LAB - CHEMISTRY ORD ERABLES Performing Organization Address City/[facility] Co de Phone Number [facility] [address] [place], [place] [id number] * XR CHEST PA OR AP (1VW ONLY, THIS IS NOT PORTABLE) (12/16/2022 12:02 PM CDT) Only the most recent of2 resultswithin the time period is included. Anatomical Region Laterality Modality Chest Radiographic [place] ging 12/16/2022 12:0 4 PM CDT Impressions 12/16/2022 12:05 PM CDT IMPRESSION: 1. No acute cardiopulmonary process is identified. > Interpreting Provider: Wade Maher DO on 12/16/2022 12:05 PM Narrative 12/16/2022 12:05 PM CDT PROCEDURE: XR CHEST 1VW DATE/TIME OF EXAM: 12/16/2022 12:03 PM CLINICAL INFORMATION: Headache with nausea. Hypertension. COMPARISON: 08/22/2020. FINDINGS: Lungs are clear. Heart size is normal. There is no vascular congestion. Bony thorax is unremarkable. Procedure Note Wade Maher DO - 12/16/2022 PROCEDURE: XR CHEST 1VW DATE/TIME OF EXAM: 12/16/2022 12:03 PM CLINICAL INFORMATION: Headache with nausea. Hypertension. COMPARISON: 08/22/2020. FINDINGS: Lungs are clear. Heart size is normal. There is no vascular congestion. Bony thorax is unremarkable. IMPRESSION: 1. No acute cardiopulmonary process is identified. > Interpreting Provider: Wade Maher DO on 12/16/2022 12:05 PM Dot Gunn PA-C DIAGNOSTIC IMAGING ORDERABLES * EKG 12-LEAD (12/16/2022 11:41 AM CDT) Only the most recent of11 resultswithin the time period is included. Ventricular Rate 84 BPM [facility] Atrial Rate 84 BPM [facility] P-R Interval 140 ms [facility] QRS Duration ms 86 ms [facility] Q-T Interval ms 390 ms [facility] QTC Calculation (Bezet) 460 ms [facility] Calculated P Woodruff 17 degrees [facility] Calculated R Woodruff -24 degrees [facility] Calculated T Woodruff -18 degrees [facility] Interpretation EKG Normal sinus rhythm Nonspecific T wave abnormality Prolonged QT Abnormal ECG Confirmed by DUDLEY HAWKINS MD ([id number]) on 12/16/2022 7:54:48 PM [facility] 12/16/2022 11:4 1 AM CDT 12/16/2022 7:54 PM CDT Armida Rios MD ECG ORDERABLES [facility] * IMAGING RADIOLOGY XRAY RESULTS ORDER (02/22/2022) Only the most recent of14 resultswithin the time period is included. Anatomical Region Laterality Modality Other 02/22/2022 Narrative 02/22/2022 Ordered by an unspecified provider. Scanned Document IMAGING * XR FOOT RIGHT 3VW OR MORE (04/09/2021 4:36 PM CDT) Only the most recent of2 resultswithin the time period is included. Anatomical Region Laterality Modality Ankle / Foot Radiographic [place] ging 04/09/2021 4:50 PM CDT Narrative 04/09/2021 4:53 PM CDT STUDY: X-RAY(s): 1. Right tibia and fibula, 2 views. 2. Right ankle, 3 views. 3. Right foot, 3 views. HISTORY: Right ankle pain and swelling of the right lower leg. Right foot pain. History of closed fracture of the right tibia and fibula. COMPARISON: Right foot radiographs dated 02/13/2021. Right ankle radiographs dated 12/03/2020. Right tibia and fibula radiographs dated 03/12/2021. FINDINGS: Fractures/Fixations/Dislocations/Malalignments/Arthroplasties: Oblique nondisplaced fracture of the proximal right fibula, similar to prior study. Focal Erosions or Osseous Destruction: None. Bone Density: Unremarkable. Osteoarthrosis/Spondylosis: Unremarkable. Radiopaque Foreign Bodies: None. Soft Tissues: Mild anterior right ankle soft tissue swelling. IMPRESSION: 1. Revisualization of an oblique nondisplaced fracture of the proximal right fibula. 2. Mild anterior right ankle soft tissue swelling. *Reading Radiologist: Tika Nickerson on 04/09/2021 at 4:53 PM Procedure Note Tika Nickerson MD - 04/09/2021 STUDY: X-RAY(s): 1. Right tibia and fibula, 2 views. 2. Right ankle, 3 views. 3. Right foot, 3 views. HISTORY: Right ankle pain and swelling of the right lower leg. Right foot pain. History of closed fracture of the right tibia and fibula. COMPARISON: Right foot radiographs dated 02/13/2021. Right ankle radiographs dated 12/03/2020. Right tibia and fibula radiographs dated 03/12/2021. FINDINGS: Fractures/Fixations/Dislocations/Malalignments/Arthroplasties: Oblique nondisplaced fracture of the proximal right fibula, similar to prior study. Focal Erosions or Osseous Destruction: None. Bone Density: Unremarkable. Osteoarthrosis/Spondylosis: Unremarkable. Radiopaque Foreign Bodies: None. Soft Tissues: Mild anterior right ankle soft tissue swelling. IMPRESSION: 1. Revisualization of an oblique nondisplaced fracture of the proximal right fibula. 2. Mild anterior right ankle soft tissue swelling. *Reading Radiologist: Tika Nickerson on 04/09/2021 at 4:53 PM Orion Whyte DPM DIAGNOSTIC IMAGING O RDERABLES * XR ANKLE RIGHT 3VW OR MORE (04/09/2021 4:36 PM CDT) Only the most recent of2 resultswithin the time period is included. Anatomical Region Laterality Modality Lower Extremity Radiographic [place] 04/09/2021 4:50 PM CDT Narrative 04/09/2021 4:53 PM CDT STUDY: X-RAY(s): 1. Right tibia and fibula, 2 views. 2. Right ankle, 3 views. 3. Right foot, 3 views. HISTORY: Right ankle pain and swelling of the right lower leg. Right foot pain. History of closed fracture of the right tibia and fibula. COMPARISON: Right foot radiographs dated 02/13/2021. Right ankle radiographs dated 12/03/2020. Right tibia and fibula radiographs dated 03/12/2021. FINDINGS: Fractures/Fixations/Dislocations/Malalignments/Arthroplasties: Oblique nondisplaced fracture of the proximal right fibula, similar to prior study. Focal Erosions or Osseous Destruction: None. Bone Density: Unremarkable. Osteoarthrosis/Spondylosis: Unremarkable. Radiopaque Foreign Bodies: None. Soft Tissues: Mild anterior right ankle soft tissue swelling. IMPRESSION: 1. Revisualization of an oblique nondisplaced fracture of the proximal right fibula. 2. Mild anterior right ankle soft tissue swelling. *Reading Radiologist: Tika Nickerson on 04/09/2021 at 4:53 PM Procedure Note Tika Nickerson MD - 04/09/2021 STUDY: X-RAY(s): 1. Right tibia and fibula, 2 views. 2. Right ankle, 3 views. 3. Right foot, 3 views. HISTORY: Right ankle pain and swelling of the right lower leg. Right foot pain. History of closed fracture of the right tibia and fibula. COMPARISON: Right foot radiographs dated 02/13/2021. Right ankle radiographs dated 12/03/2020. Right tibia and fibula radiographs dated 03/12/2021. FINDINGS: Fractures/Fixations/Dislocations/Malalignments/Arthroplasties: Oblique nondisplaced fracture of the proximal right fibula, similar to prior study. Focal Erosions or Osseous Destruction: None. Bone Density: Unremarkable. Osteoarthrosis/Spondylosis: Unremarkable. Radiopaque Foreign Bodies: None. Soft Tissues: Mild anterior right ankle soft tissue swelling. IMPRESSION: 1. Revisualization of an oblique nondisplaced fracture of the proximal right fibula. 2. Mild anterior right ankle soft tissue swelling. *Reading Radiologist: Tika Nickerson on 04/09/2021 at 4:53 PM Oroin Whyte DPM DIAGNOSTIC IMAGING O RDERABLES * XR TIBIA FIBULA RIGHT 2VW (04/09/2021 4:36 PM CDT) Only the most recent of2 resultswithin the time period is included. Anatomical Region Laterality Modality Lower Extremity Radiographic [place] 04/09/2021 4:50 PM CDT Narrative 04/09/2021 4:53 PM CDT STUDY: X-RAY(s): 1. Right tibia and fibula, 2 views. 2. Right ankle, 3 views. 3. Right foot, 3 views. HISTORY: Right ankle pain and swelling of the right lower leg. Right foot pain. History of closed fracture of the right tibia and fibula. COMPARISON: Right foot radiographs dated 02/13/2021. Right ankle radiographs dated 12/03/2020. Right tibia and fibula radiographs dated 03/12/2021. FINDINGS: Fractures/Fixations/Dislocations/Malalignments/Arthroplasties: Oblique nondisplaced fracture of the proximal right fibula, similar to prior study. Focal Erosions or Osseous Destruction: None. Bone Density: Unremarkable. Osteoarthrosis/Spondylosis: Unremarkable. Radiopaque Foreign Bodies: None. Soft Tissues: Mild anterior right ankle soft tissue swelling. IMPRESSION: 1. Revisualization of an oblique nondisplaced fracture of the proximal right fibula. 2. Mild anterior right ankle soft tissue swelling. *Reading Radiologist: Tika Nickerson on 04/09/2021 at 4:53 PM Procedure Note Tika Nickerson MD - 04/09/2021 STUDY: X-RAY(s): 1. Right tibia and fibula, 2 views. 2. Right ankle, 3 views. 3. Right foot, 3 views. HISTORY: Right ankle pain and swelling of the right lower leg. Right foot pain. History of closed fracture of the right tibia and fibula. COMPARISON: Right foot radiographs dated 02/13/2021. Right ankle radiographs dated 12/03/2020. Right tibia and fibula radiographs dated 03/12/2021. FINDINGS: Fractures/Fixations/Dislocations/Malalignments/Arthroplasties: Oblique nondisplaced fracture of the proximal right fibula, similar to prior study. Focal Erosions or Osseous Destruction: None. Bone Density: Unremarkable. Osteoarthrosis/Spondylosis: Unremarkable. Radiopaque Foreign Bodies: None. Soft Tissues: Mild anterior right ankle soft tissue swelling. IMPRESSION: 1. Revisualization of an oblique nondisplaced fracture of the proximal right fibula. 2. Mild anterior right ankle soft tissue swelling. *Reading Radiologist: Tika Nickerson on 04/09/2021 at 4:53 PM Orion Whyte DPM DIAGNOSTIC IMAGING O RDERABLES * VAS RIGHT VENOUS DUPLEX LE (04/09/2021 4:05 PM CDT) Only the most recent of2 resultswithin the time period is included. Anatomical Region Laterality Modality Lower Extremity Ultrasound 04/09/2021 3:33 PM CDT Narrative Procedure Note Patrice Gong MD - 04/09/[address] [address] Lower Extremity Venous Ultrasound Report Pat.Name: EMILY VALLADARESN Bronwyn Pat.ID: [id number] .Date: 04/09/2021 Exam Time: 3:33:00 PM Study Type:LE Venous Age: 11 1970,50Y Sex: FEMALE Sonogrphr: Andrew Casillas RVT Pat. Stat.:Outpatient ICD - 9: M79.604 CPT - 4: 10304 Reason for Study: Pain -Leg, right Procedures: Lower Extremity Venous - Right Race: 2 Visit ID: [id number] ++++++++++++++++++++++++++++++++++++ SUMMARY: ++++++++++++++++++++++++++++++++++++ No deep venous thrombosis, superficial venous thrombosis or pathologic reflux was identified. ++++++++++++++++++++++++++++++++++++ FINDINGS: ++++++++++++++++++++++++++++++++++++ Procedure: Venous duplex imaging of the right lower extremity was performed using color flow and spectral Doppler analysis. Study Quality: This study is of adequate technical quality. Rt Leg: All vessels seen appear patent and compressible. There was spontaneous and phasic flow seen in all the major veins of the right lower extremity. Appropriate augmentation with distal compression. Signed 04/09/2021 04:33 PM Patrice Gong MD, [facility] Orion Whyte DPM VASCULAR LAB ORDERAB LES * XR PELVIS W BILAT HIP 2VW (03/06/2021 3:26 PM CDT) Anatomical Region Laterality Modality Pelvis, Lower Extremity [facility] 03/06/2021 3:39 PM CDT Narrative 03/06/2021 4:12 PM CDT 6 VIEWS LUMBAR SPINE 2 VIEWS RIGHT HIP 2 VIEWS LEFT HIP AP PELVIS INDICATION: Low back pain, right hip pain, left hip pain, pelvic pain. FINDINGS: LUMBAR SPINE: Vertebral body height and intervertebral disc height are normal. Anatomic alignment. Mild to moderate bilateral facet arthropathy L5-S1. No acute finding. RIGHT HIP: No fracture, malalignment, or degenerative disease. LEFT HIP: No fracture, malalignment, or degenerative disease. AP PELVIS: No fracture or malalignment. No degenerative disease. No erosive changes. Edited by Angelina Mauro on 03/06/2021 3:42 PM *Reading Radiologist: Macho Tan on 03/06/2021 at 4:12 PM Procedure Note Macho Tan MD - 03/06/2021 6 VIEWS LUMBAR SPINE 2 VIEWS RIGHT HIP 2 VIEWS LEFT HIP AP PELVIS INDICATION: Low back pain, right hip pain, left hip pain, pelvic pain. FINDINGS: LUMBAR SPINE: Vertebral body height and intervertebral disc height are normal. Anatomic alignment. Mild to moderate bilateral facet arthropathy L5-S1. No acute finding. RIGHT HIP: No fracture, malalignment, or degenerative disease. LEFT HIP: No fracture, malalignment, or degenerative disease. AP PELVIS: No fracture or malalignment. No degenerative disease. No erosive changes. Edited by Angelina Mauro on 03/06/2021 3:42 PM *Reading Radiologist: Macho Tan on 03/06/2021 at 4:12 PM Rubia Zaldivar DO DIAGNOSTIC IMAGING O RDERABLES * XR LUMBAR SPINE 4VW OR MORE (03/06/2021 3:26 PM CDT) Anatomical Region Laterality Modality Spine Radiographic [place] 03/06/2021 3:39 PM CDT Narrative 03/06/2021 4:12 PM CDT 6 VIEWS LUMBAR SPINE 2 VIEWS RIGHT HIP 2 VIEWS LEFT HIP AP PELVIS INDICATION: Low back pain, right hip pain, left hip pain, pelvic pain. FINDINGS: LUMBAR SPINE: Vertebral body height and intervertebral disc height are normal. Anatomic alignment. Mild to moderate bilateral facet arthropathy L5-S1. No acute finding. RIGHT HIP: No fracture, malalignment, or degenerative disease. LEFT HIP: No fracture, malalignment, or degenerative disease. AP PELVIS: No fracture or malalignment. No degenerative disease. No erosive changes. Edited by Angelina Mauro on 03/06/2021 3:42 PM *Reading Radiologist: Macho Tan on 03/06/2021 at 4:12 PM Procedure Note Macho Tan MD - 03/06/2021 6 VIEWS LUMBAR SPINE 2 VIEWS RIGHT HIP 2 VIEWS LEFT HIP AP PELVIS INDICATION: Low back pain, right hip pain, left hip pain, pelvic pain. FINDINGS: LUMBAR SPINE: Vertebral body height and intervertebral disc height are normal. Anatomic alignment. Mild to moderate bilateral facet arthropathy L5-S1. No acute finding. RIGHT HIP: No fracture, malalignment, or degenerative disease. LEFT HIP: No fracture, malalignment, or degenerative disease. AP PELVIS: No fracture or malalignment. No degenerative disease. No erosive changes. Edited by Angelnia Mauro on 03/06/2021 3:42 PM *Reading Radiologist: Macho Tan on 03/06/2021 at 4:12 PM Rubia Zaldivar DO DIAGNOSTIC IMAGING O RDERABLES * MRI ANKLE RIGHT WWO CONTRAST (02/21/2021 11:02 AM CDT) Anatomical Region Laterality Modality Ankle / Foot Magnetic Resonan ce 02/21/2021 11:4 4 AM CDT Impressions 02/21/2021 2:18 PM CDT PES PLANUS. GANGLION CYST INTIMATELY ASSOCIATED WITH THE INFERIOR EXTENSOR RETINACULUM. NO ACUTE PATHOLOGY. Edited by Sara Romano on 02/21/2021 1:14 PM *Reading Radiologist: Macho Tan on 02/21/2021 at 2:18 PM Narrative 02/21/2021 2:18 PM CDT MRI RIGHT ANKLE WITH AND WITHOUT INTRAVENOUS CONTRAST CLINICAL INDICATION: Chronic worsening right ankle pain and limited range of motion. COMPARISON: Right foot x-ray series 02/13/2021. TECHNIQUE: Multiplanar multisequence MR imaging of the right ankle was performed before and after administration of 20 cc gadolinium intravenous contrast. FINDINGS: There is a pes planus. No bone marrow edema. No osteochondral lesions. No joint effusions. No abnormal sites of enhancement. Signal of the medial, anterior, and peroneal tendons is within normal limits. No tenosynovitis. The Achilles tendon and plantar aponeurosis are normal in signal and morphology. The anterointerior tibiofibular ligament, posterior inferior tibiofibular ligament, anterior talofibular ligament, posterior talofibular ligament, calcaneofibular ligament,, Lisfranc ligament, and deltoid ligaments are intact. Signal of the musculature is normal. Signal of the neurovascular structures is normal. There is a 16 x 11 mm fluid signal ganglion cyst intimately associated with the inferior extensor retinaculum. No other mass lesions. Procedure Note Macho Tan MD - 02/21/2021 MRI RIGHT ANKLE WITH AND WITHOUT INTRAVENOUS CONTRAST CLINICAL INDICATION: Chronic worsening right ankle pain and limited range of motion. COMPARISON: Right foot x-ray series 02/13/2021. TECHNIQUE: Multiplanar multisequence MR imaging of the right ankle was performed before and after administration of 20 cc gadolinium intravenous contrast. FINDINGS: There is a pes planus. No bone marrow edema. No osteochondral lesions. No joint effusions. No abnormal sites of enhancement. Signal of the medial, anterior, and peroneal tendons is within normal limits. No tenosynovitis. The Achilles tendon and plantar aponeurosis are normal in signal and morphology. The anterointerior tibiofibular ligament, posterior inferior tibiofibular ligament, anterior talofibular ligament, posterior talofibular ligament, calcaneofibular ligament,, Lisfranc ligament, and deltoid ligaments are intact. Signal of the musculature is normal. Signal of the neurovascular structures is normal. There is a 16 x 11 mm fluid signal ganglion cyst intimately associated with the inferior extensor retinaculum. No other mass lesions. IMPRESSION PES PLANUS. GANGLION CYST INTIMATELY ASSOCIATED WITH THE INFERIOR EXTENSOR RETINACULUM. NO ACUTE PATHOLOGY. Edited by Sara Romano on 02/21/2021 1:14 PM *Reading Radiologist: Macho Tan on 02/21/2021 at 2:18 PM Ailsha Rosales [facility] MR ORDERABLES * SARS-COV-2 (COVID-19) INTERNAL (02/14/2021 3:44 PM CDT) Only the most recent of4 resultswithin the time period is included. COVID-19 PCR Not detected Not detected 02/15/2021 12:[address] [facility] Microbiology SPECIMEN FROM NASOPHARYNGEAL STRUCTURE / Unknown Collection / Unknown 02/14/2021 3:44 PM CDT 02/14/2021 3:45 PM CDT Narrative [facility] - 02/15/2021 12:36 AM CDT This nucleic acid amplification assay performance was validated by [facility]. This test has been authorized by the Food and Drug administration (FDA)under an Emergency Use Authorization (EUA). This test has been validated in accordance with the FDA's guidance document Policy for Diagnostic Testing in Laboratories Certified to perform High Complexity Testing under CLIA prior to Emergency Use Authorization for Coronavirus Disease-2019 during the Public Health Emergency issued on October 07, 2019. FDA independent review of this validation is pending. This test is only authorized for the duration of time the declaration that circumstances exist justifying the authorization of emergency use of in vitro diagnostic tests for detection of SARS-CoV-2 virus and/or diagnosis of COVID-19 infection under section 564(b)(1) of the Act, 21 U.S.C 360bbb-3 (b)(1), unless the authorization is terminated or revoked sooner. Fact Sheets for this EUA assay are available upon request. Franci Patino PA-C LAB - MICROBIO LOGY ORDERABLES [facility] [address] [place] [address], [facility] [phone] * XR FOOT BILAT WT BEARING 3VW (02/13/2021 2:46 PM CDT) Anatomical Region Laterality Modality Ankle / Foot, Lower Extremity Ra diographic Imaging 02/13/2021 3:41 PM CDT Narrative 02/13/2021 3:42 PM CDT 3 weightbearing views right foot 3 weightbearing views left foot INDICATION: Chronic bilateral foot pain. FINDINGS: Right foot: Pes planus. Tiny plantar calcaneal enthesophyte. No acute findings. Left foot: Pes planus. No acute findings. *Reading Radiologist: Macho Tan on 02/13/2021 at 3:42 PM Procedure Note Macho Tan MD - 02/13/2021 3 weightbearing views right foot 3 weightbearing views left foot INDICATION: Chronic bilateral foot pain. FINDINGS: Right foot: Pes planus. Tiny plantar calcaneal enthesophyte. No acute findings. Left foot: Pes planus. No acute findings. *Reading Radiologist: Macho Tan on 02/13/2021 at 3:42 PM Alisha Rosales DPM DIAGNOSTIC IMAGING O RDERABLES * HEPATITIS SCREEN ACUTE (02/05/2021 12:23 PM CDT) Only the most recent of2 resultswithin the time period is included. Hepatitis A Virus Antibody IgM NON-REACTI VE NON-REACT LILLY [facility] Comment: For additional information, please refer to http://education.[employer].CloudBees/faq/RNT190 (This link is being provided for informational/ educational purposes only.) Hepatitis B Virus Surface Antigen NON-REACTI VE NON-REACT LILLY [facility] Hepatitis B Core Virus Antibody IgM NON-REACTI VE NON-REACT LILLY [facility] Hepatitis C Antibody NON-REACTI VE NON-REACT LILLY [facility] Signal to Cut-Off 0.01 <1.00 [facility] Comment: HCV antibody was non-reactive. There is no laboratory evidence of HCV infection. In most cases, no further action is required. However, if recent HCV exposure is suspected, a test for HCV RNA (test code 06609) is suggested. For additional information please refer to http://education.RoboteX/faq/JNE64i2 (This link is being provided for informational/ educational purposes only.) Test Performed at: [facility] [address] [place] [address] CHRISTINE PYLE DO,MPH Blood BLOOD SPECIMEN / Unknown 02/05/2021 12:23 PM CDT 02/05/2021 12:23 PM CDT Kadie Keating MD LAB - CHEMISTRY KRISTINA AREVALO [facility] Organization Address City/State/ZIP Co de Phone Number [facility] [address] [place] [address] * XR FINGERS RIGHT 2VW OR MORE (02/04/2021 11:45 AM CDT) Anatomical Region Laterality Modality Upper Extremity, Wrist / Hand Ra diographic Imaging 02/04/2021 4:38 PM CDT Narrative 02/04/2021 4:38 PM CDT 4 views right thumb INDICATION: Chronic right thumb pain FINDINGS: No fracture, malalignment, or degenerative disease. No osseous erosions. *Reading Radiologist: Macho Tan on 02/04/2021 at 4:38 PM Procedure Note Macoh Tan MD - 02/04/2021 4 views right thumb INDICATION: Chronic right thumb pain FINDINGS: No fracture, malalignment, or degenerative disease. No osseous erosions. *Reading Radiologist: Macho Tan on 02/04/2021 at 4:38 PM Lars Porras MD DIAGNOSTIC IMAGING O RDERABLES * MAMMO BILAT SCREENING (01/30/2021 7:37 AM CDT) Only the most recent of2 resultswithin the time period is included. Anatomical Region Laterality Modality Breast Bilateral Mammography 01/30/2021 11:1 9 AM CDT Impressions 01/30/2021 11:21 AM CDT No mammographic evidence of malignancy in either breast. ASSESSMENT: BIRADS Category 1: Negative mammogram. RECOMMENDATION: Bilateral screening mammogram in one year. Thank you for allowing us to participate in the care of your patient. [facility] utilizes dough as a reminder system to notify patients of their next recommended mammogram. *Reading Radiologist: Armida Greenfield on 01/30/2021 at 11:21 AM Narrative 01/30/2021 11:21 AM CDT EXAMINATION: Digital screening mammogram. Low-dose full-field digital breast tomosynthesis examination was performed with synthetic 2D images and 3D acquisitions. Computer assisted detection was utilized. DATE: 01/30/2021 7:12 AM PRIOR: 2015 BREAST PARENCHYMAL DENSITY: The breasts are heterogeneously dense, which may obscure small masses. FINDINGS: No suspicious masses, areas of architectural distortion or microcalcifications are evident on synthetic 2D mammogram or tomosynthesis images. There has been no significant interval change since the prior examination. Fabi Pulliam MD MAMMO ORDERABLES * RPR W REFLEX TO TITER+CONFIRM (01/29/2021 2:33 PM CDT) Pathologist [facility] RPR NON-REACTI VE NON-REACT LILLY [facility] Comment: REPORT COMMENT: FASTING:NO Test Performed at: [facility] [address] [place] [address] CHRISTINE PYLE DO,MPH Blood BLOOD SPECIMEN / Unknown 01/29/2021 2:33 PM CDT 01/29/2021 2:35 PM CDT Fabi Pulliam MD LAB - CHEMISTRY ORD ERABLES [facility] [address] [place] [address] * HIV-1 HIV-2 ANTIBODY + HIV P24 AG PANEL (01/29/2021 2:33 PM CDT) Pathologist [facility] HIV Screen 4th Generation w Reflex NON-REACT LILLY NON-REACT LILLY [facility] Comment: HIV-1 antigen and HIV-1/HIV-2 antibodies were not detected. There is no laboratory evidence of HIV infection. PLEASE NOTE: This information has been disclosed to you from records whose confidentiality may be protected by state law. If your state requires such protection, then the state law prohibits you from making any further disclosure of the information without the specific written consent of the person to whom it pertains, or as otherwise permitted by law. A general authorization for the release of medical or other information is NOT sufficient for this purpose. For additional information please refer to http://education.RoboteX/faq/AKL819 (This link is being provided for informational/ educational purposes only.) The performance of this assay has not been clinically validated in patients less than 2 years old. Test Performed at: [facility] [address] [place] [address] CHRISTINE PYLE DO,MPH Blood BLOOD SPECIMEN / Unknown 01/29/2021 2:33 PM CDT 01/29/2021 2:35 PM CDT Fabi Pulliam MD LAB - CHEMISTRY ORD ERABLES [facility] [address] [place] [address] * INHIBIN A (01/29/2021 2:33 PM CDT) [facility] Inhibin A 23 pg/mL [facility] Comment: Reference Ranges for Inhibin A: Females Premenopausal: <98.0 pg/mL Postmenopausal: <2.1 pg/mL Males <2.0 pg/mL This test was performed using the AmadorAudanikaRosa Chemiluminescent Inhibin-A method that has been cleared by the FDA strictly for in vitro use as an aid in the diagnosis and monitoring of various hormonal reproductive disorders. The Inhibin-A test should not be used as a diagnostic procedure for granulosa cell tumors or hydatidiform moles without confirmation of the diagnosis by another established product or procedure. Values obtained with different assay methods or kits cannot be used interchangeably. Test Performed at: [facility] [address] [place] [address] VERNA PAZ MD,PHD,HIMA Blood BLOOD SPECIMEN / Unknown 01/29/2021 2:33 PM CDT 01/29/2021 2:35 PM CDT Fabi Pulliam MD LAB - CHEMISTRY ORD ERABLES Performing Organization Address [facility] de Phone Number [place] [phone] * INHIBIN B (01/29/2021 2:33 PM CDT) Inhibin B 43 pg/mL [facility] Comment: REFERENCE RANGE for Inhibin B: Age: Male: Female: 5 - 9.9 years 21 - 166 pg/mL < or = 18 pg/mL 10 - 13.9 years 41 - 328 pg/mL < or = 86 pg/mL 14 - 17.9 years 54 - 295 pg/mL < or = 123 pg/mL >= 18 years 47 - 308 pg/mL Female: Pre-menopausal <153 pg/mL Post-menopausal <10 pg/mL Values obtained from different assay methods cannot be used interchangeably. Inhibin B levels, regardless of value, should not be interpreted as absolute evidence of the presence or absence of disease. This test was developed and its analytical performance characteristics have been determined by [facility]. It has not been cleared or approved by the FDA. This assay has been validated pursuant to the CLIA regulations and is used for clinical purposes. Test Performed at: [facility] [address] [address] ZURI PHIPPS MD Blood BLOOD SPECIMEN / Unknown 01/29/2021 2:33 PM CDT 01/29/2021 2:35 PM CDT Fabi Pulliam MD LAB - SEROLOGY KRISTINA AREVALO Performing Organization Address [facility] Co de Phone Number [address] [address] * CANCER ANTIGEN (CA)125 BLOOD (01/29/2021 2:33 PM CDT) CA 125 11 <35 U/mL [facility] Comment: This test was performed using the Amador Oak Chemiluminescent method. Values obtained from different assay methods cannot be used interchangeably. CA 125 levels, regardless of value, should not be interpreted as absolute evidence of the presence or absence of disease. Test Performed at: [facility] [place] [address] CHRISTINE PYLE DO,MPH Blood BLOOD SPECIMEN / Unknown 01/29/2021 2:33 PM CDT 01/29/2021 2:35 PM CDT Fabi Pulliam MD LAB - CHEMISTRY ORD ERABLES Performing Organization Address [facility] Co de Phone Number [facility] [address] [place] [address] * ESTRADIOL (01/29/2021 2:33 PM CDT) [facility] Estradiol 151 pg/mL [facility] Comment: Reference Range Follicular Phase: 19-144 Mid-Cycle: 64-357 Luteal Phase: 56-214 Postmenopausal: < or = 31 Reference range established on post-pubertal patient population. No pre-pubertal reference range established using this assay. For any patients for whom low Estradiol levels are anticipated (e.g. males, pre-pubertal children and hypogonadal/post-menopausal females), the [facility] Estradiol, Ultrasensitive, LCMSMS assay is recommended (order code 60270). Please note: patients being treated with the drug fulvestrant (Faslodex(R)) have demonstrated significant interference in immunoassay methods for estradiol measurement. The cross reactivity could lead to falsely elevated estradiol test results leading to an inappropriate clinical assessment of estrogen status. [facility] order code 18584-Cideypere, Ultrasensitive LC/MS/MS demonstrates negligible cross reactivity with fulvestrant. Test Performed at: [facility] [employer] [address] CHRISTINE PYLE DO,MPH Blood BLOOD SPECIMEN / Unknown 01/29/2021 2:33 PM CDT 01/29/2021 2:35 PM CDT Fabi Pulliam MD LAB - CHEMISTRY ORD ERABLES Performing Organization Address [facility]/ZIP Co de Phone Number [facility] [address] [place] [phone] * ALPHA FETOPROTEIN BLOOD TUMOR MARKER (01/29/2021 2:33 PM CDT) [facility] Alpha-Fetoprotei n Tumor Marker 3.6 ng/mL [facility] Comment: Reference Range: <6.1 The use of AFP as a tumor marker in females is not recommended. This test was performed using the Amador Oak chemiluminescent method. Values obtained from different assay methods cannot be used interchangeably. AFP levels, regardless of value, should not be interpreted as absolute evidence of the presence or absence of disease. Test Performed at: [facility] [place] [address] CHRISTINE PYLE DO,MPH Blood BLOOD SPECIMEN / Unknown 01/29/2021 2:33 PM CDT 01/29/2021 2:35 PM CDT Fabi Pulliam MD LAB - CHEMISTRY ORD ERABLES Performing Organization Address City/[facility] Co de Phone Number [facility] [address] [place] [address] * LDH BLOOD (01/29/2021 2:33 PM CDT) Only the most recent of2 resultswithin the time period is included. [facility] LD-Total 154 120 - 250 U/L [facility] Comment: Test Performed at: [facility] [place] [address] CHRISTINE PYLE DO,MPH Blood BLOOD SPECIMEN / Unknown 01/29/2021 2:33 PM CDT 01/29/2021 2:35 PM CDT Fabi Pulliam MD LAB - CHEMISTRY ORD ERABLES Performing Organization Address City/[facility]/ZIP Co de Phone Number [facility] [address] [place] [address] * HEPATITIS B SURFACE ANTIGEN W RFLX CONFIRMATION (01/29/2021 2:33 PM CDT) [facility] Hepatitis B Virus Surface Antigen NON-REACTI VE NON-REACT LILLY [facility] Comment: Test Performed at: [facility] [place] [address] CHRISTINE PYLE DO,MPH Blood BLOOD SPECIMEN / Unknown 01/29/2021 2:33 PM CDT 01/29/2021 2:35 PM CDT Fabi Pulliam MD LAB - CHEMISTRY ORD ERABLES [facility] [address] [place] [address] * Peripheral Nerve Block (12/13/2020 12:33 PM CDT) Narrative Prisca Gonzalez DO - 12/13/2020 12:33 PM CDT Prisca Gonzalez DO 12/13/2020 12:34 PM Peripheral Nerve Block Procedure: Peripheral Nerve Block Patient Location: Pre-op Preprocedure Section: Indications: at surgeon's request, at patient's request, postop pain management and surgical anesthesia. Pre-anesthetic Checklist: Patient identified, IV Checked, Site examined and clear, Risks and benefits discussed, Surgical consent verified, Monitors and equipment, Time-out performed, Informed consent obtained, Pre-op evaluation done, Questions answered/anesthesia questions answered, Allergies reviewed and Removal hand/wrist jewelry Monitors: BP, Pulse Ox and EKG. Patient Condition: sedated, meaningful contact maintained throughout procedure Patient Position: sitting Patient Sedated? Nursing documentation on [facility] Sedation Type: mild Sedation Agents (Manual): versed and fentanyl Procedure Section Laterality: right Block Performed: supraclavicular Prep: Chloraprep Strerile Field: gloves and mask Skin numbed with ( manual): lidocaine 1% mL Needle Type: Echogenic insultaed Needle Gauge: 22 Needle Length: 50 mm Catheter? No Ultrasound Guided? Yes Technique: in plane Visualization: Preliminary scan performed, Important anatomical structures identified, Needle tip visualized throughout the procedure, Target identified, No intraneural or intravascular puncture occurred, Ultrasound image in chart, Local visualized surrounding nerve on ultrasound and Hydrodissection utilized Injection was made incrementally with constant monitoring and aspirations every 5 mL's Injection Assessment: Slow fractionated injection Block Agents or Additives used? Nursing documentation on [facility] Block Agents (Manual): Bupivacaine: 0.5% 30 mL Epinephrine: 5 mcg/mL (1/200,000) Procedure Tolerance: tolerated well, performed while the patient was sedated and no immediate complications Assessment: completed Staff Section Anesthesia Provider: Prisca Gonzalez DO, Performed the procedure Prisca Gonzalez DO GENERAL ANESTHESIA O RDERABLES * MANUEL PANEL COMPREHENSIVE (12/03/2020 12:22 PM CDT) Only the most recent of2 resultswithin the time period is included. MANUEL Screen NEGATIVE NEGATIVE [facility] Comment: MANUEL IFA is a first line screen for detecting the presence of up to approximately 150 autoantibodies in various autoimmune diseases. A negative MANUEL IFA result suggests an MANUEL-associated autoimmune disease is not present at this time, but is not definitive. If there is high clinical suspicion for Sjogren's syndrome, testing for anti-SS-A/Ro antibody should be considered. Anti-Ermelinda-1 antibody should be considered for clinically suspected inflammatory myopathies. AC-0: Negative International Consensus on MANUEL Patterns (https://doi.org/10.1515/nagx-1020-6260) For additional information, please refer to http://education.[employer]/faq/NVN376 (This link is being provided for informational/ educational purposes only.) dsDNA Antibody <1 IU/mL [facility] Comment: IU/mL Interpretation < or = 4 Negative 5-9 Indeterminate > or = 10 Positive SCL-70 Antibody <1.0 NEG <1.0 NEG AI [facility] SM Antibody <1.0 NEG <1.0 NEG AI [facility] SM/TIRE MAKER Antibody <1.0 NEG <1.0 NEG AI [facility] Sjogren's Antibodies (SSA) <1.0 NEG <1.0 NEG AI [facility] Sjogren's Antibodies (SSB) <1.0 NEG <1.0 NEG AI [facility] Comment: REPORT COMMENT: FASTING:NO Test Performed at: [facility] [address] [place] [address] CHRISTINE PYLE DO,MPH Blood BLOOD SPECIMEN / Unknown 12/03/2020 12:22 PM CDT 12/03/2020 12:23 PM CDT Kadie Keating MD LAB - SEROLOGY ORDER ALEX [facility] [address] [place] [address] * XR CHEST 2VW (08/22/2020 1:25 PM GERIATRIC NURSING ASSISTANT) Only the most recent of8 resultswithin the time period is included. Anatomical Region Laterality Modality Chest Radiographic [place] ging 08/22/2020 1:28 PM GERIATRIC NURSING ASSISTANT Impressions 08/22/2020 1:31 PM GERIATRIC NURSING ASSISTANT Normal. *Reading Radiologist: Anil Urbina on 08/22/2020 at 1:31 PM Narrative 08/22/2020 1:31 PM GERIATRIC NURSING ASSISTANT Chest, 2 views DATE: 08/22/2020 INDICATION: Cough FINDINGS: The lungs are clear and free of effusion. The heart, mediastinum and bony thorax are normal. No change since 08/11/2020 Procedure Note Anil Urbina MD - 08/22/2020 Chest, 2 views DATE: 08/22/2020 INDICATION: Cough FINDINGS: The lungs are clear and free of effusion. The heart, mediastinum and bony thorax are normal. No change since 08/11/2020 IMPRESSION Normal. *Reading Radiologist: Anil Urbina on 08/22/2020 at 1:31 PM Rubia Zaldivar DO DIAGNOSTIC IMAGING O RDERABLES * XR CHEST 1VW PORTABLE (08/11/2020 1:35 PM GERIATRIC NURSING ASSISTANT) Only the most recent of4 resultswithin the time period is included. Anatomical Region Laterality Modality Chest Radiographic [place] ging 08/11/2020 2:11 PM GERIATRIC NURSING ASSISTANT Impressions 08/11/2020 2:12 PM GERIATRIC NURSING ASSISTANT Comparison is made to 12/30/2019. Hazy opacities within the mid to lower lung zones bilaterally which could be infectious or inflammatory or secondary to soft tissue attenuation. No consolidation or edema. No pleural effusion or pneumothorax. Unchanged cardiomegaly. *Reading Radiologist: Pool Tang on 08/11/2020 at 2:12 PM Narrative 08/11/2020 2:12 PM GERIATRIC NURSING ASSISTANT Portable Chest AP History: Dyspnea. Procedure Note Pool Tang MD - 08/11/2020 Portable Chest AP History: Dyspnea. IMPRESSION Comparison is made to 12/30/2019. Hazy opacities within the mid to lower lung zones bilaterally which could be infectious or inflammatory or secondary to soft tissue attenuation. No consolidation or edema. No pleural effusion or pneumothorax. Unchanged cardiomegaly. *Reading Radiologist: Pool Tang on 08/11/2020 at 2:12 PM Armida Rios MD DIAGNOSTIC IMAGING ORDERABLES * INFLUENZA A+B ANTIGEN RAPID (08/11/2020 12:31 PM GERIATRIC NURSING ASSISTANT) Influenza A Antigen Negative Negative 08/11/2020 1:00 PM GERIATRIC NURSING ASSISTANT [facility] Influenza B Antigen Negative Negative 08/11/2020 1:00 PM GERIATRIC NURSING ASSISTANT [facility] Microbiology SPECIMEN FROM NASOPHARYNGEAL STRUCTURE / Unknown Collection / Unknown 08/11/2020 12:31 PM GERIATRIC NURSING ASSISTANT 08/11/2020 12:41 PM GERIATRIC NURSING ASSISTANT Narrative [facility] - 08/11/2020 1:00 PM GERIATRIC NURSING ASSISTANT The sensitivity of rapid tests for influenza A and B antigens, according to the published reports , ranges from 30-70% when compared to PCR and viral culture. For H1N1 influenza A, the sensitivity varies from 30-50%. For other influenza A strains, the sensitivity ranges from 50-70%. For influenza B virus, the sensitivity is approximately 30%. A negative result does not exclude influenza infection. False-positive (and true-negative) influenza test results are more likely to occur when disease prevalence is low, which is generally at the beginning and end of the influenza season. False-negative (and true-positive) influenza test results are more likely to occur when disease prevalence is high, which is typically at the height of the influenza season. Armida Rios MD LAB - MICROBIOLOGY ORDERABLES [facility] [address] [place] [address] * US PELVIS W TRANSVAG NON OB (06/10/2020 3:38 PM GERIATRIC NURSING ASSISTANT) Anatomical Region Laterality Modality Pelvis Ultrasound 06/10/2020 3:50 PM GERIATRIC NURSING ASSISTANT Narrative 06/10/2020 4:54 PM GERIATRIC NURSING ASSISTANT PELVIC ULTRASOUND TRANSABDOMINAL AND TRANSVAGINAL VIEWS HISTORY: Status post hysterectomy with pelvic pain. The uterus is surgically absent. The right ovary measures approximately 3.7 cm. There is a hypoechoic lesion in the right ovary measuring up to 2.8 cm which could represent a small hemorrhagic cyst or possibly endometrioma. The left ovary is not visualized. No free pelvic fluid is seen. DIAGNOSIS: Right ovarian hypoechoic lesion as described. Follow-up in 2-3 months is recommended for further characterization. Edited by Virginia Hovrath on 06/10/2020 4:00 PM *Reading Radiologist: Gurdeep Scanlon on 06/10/2020 at 4:54 PM Procedure Note Gurdeep Scanlon MD - 06/10/2020 PELVIC ULTRASOUND TRANSABDOMINAL AND TRANSVAGINAL VIEWS HISTORY: Status post hysterectomy with pelvic pain. The uterus is surgically absent. The right ovary measures approximately 3.7 cm. There is a hypoechoic lesion in the right ovary measuring up to 2.8 cm which could represent a small hemorrhagic cyst or possibly endometrioma. The left ovary is not visualized. No free pelvic fluid is seen. DIAGNOSIS: Right ovarian hypoechoic lesion as described. Follow-up in 2-3 months is recommended for further characterization. Edited by Virginia Horvath on 06/10/2020 4:00 PM *Reading Radiologist: Gurdeep Scanlon on 06/10/2020 at 4:54 PM Rubia Zaldivar DO US ORDERABLES * LAB RESULTS ORDER (06/04/2020) Only the most recent of6 resultswithin the time period is included. Rubia Zaldivar DO LAB - THERAPEUTIC DR LOZANO MONITORING ORDERABLES * RHEUMATOID ARTHRITIS PANEL (03/18/2020 12:01 PM CDT) Rheumatoid Factor <14 <14 IU/mL [facility] Cyclic Citrullinated Peptide Antibody IgG <16 UNITS [facility] Comment: Reference Range Negative: <20 Weak Positive: 20-39 Moderate Positive: 40-59 Strong Positive: >59 Interpretation [facility] Comment: These serologic results may be found in 10-20% of patients with polyarthritis that is clinically and radiologically indistinguishable from RA. Test Performed at: [facility] [address] [place] [address] CHRISTINE PYLE DO,MPH Blood BLOOD SPECIMEN / Unknown 03/18/2020 12:01 PM CDT 03/18/2020 12:02 PM CDT Kadie Keating MD LAB - SEROLOGY ORDER ALEX Performing Organization Address [facility] Co de Phone Number [facility] [address] [place] [address] * CK BLOOD (03/18/2020 12:01 PM CDT) Only the most recent of2 resultswithin the time period is included. Pathologist [facility] CK 93 29 - 143 U/L [facility] Comment: Test Performed at: [facility] [id number] CHRISTINE PYLE DO,MPH Blood BLOOD SPECIMEN / Unknown 03/18/2020 12:01 PM CDT 03/18/2020 12:02 PM CDT Kadie Keating MD LAB - CHEMISTRY ORDBonnie AREVALO Performing Organization Address [facility] de Phone Number [facility] [phone] [place] [address] * COMPLEMENT C3 C4 PANEL (03/18/2020 12:01 PM CDT) [facility] Complement C3 188 83 - 193 mg/dL [facility] Complement C4 47 15 - 57 mg/dL [facility] Comment: Test Performed at: [facility] [id number], [employer] [address] CHRISTINE PYLE DO,MPH Blood BLOOD SPECIMEN / Unknown 03/18/2020 12:01 PM CDT 03/18/2020 12:02 PM CDT Kadie Keating MD LAB - CHEMISTRY KRISTINA AREVALO Performing Organization Address [facility] Co de Phone Number [facility] [phone] [place] [address] * COVID-19 SARS-COV-2 PCR QUAL ([facility]) (01/10/2020 5:07 PM CDT) Pathologist [facility] SARS-CoV-2 TRISTON Not Detected Not Detected [facility] INSURANCE BILL Comment: This test was developed and its performance characteristics determined by [employer]. This test has not been FDA cleared or approved. This test has been authorized by FDA under an Emergency Use Authorization (EUA). This test is only authorized for the duration of time the declaration that circumstances exist justifying the authorization of the emergency use of in vitro diagnostic tests for detection of SARS-CoV-2 virus and/or diagnosis of COVID-19 infection under section 564(b)(1) of the Act, 21 U.S.C. 360bbb-3(b)(1), unless the authorization is terminated or revoked sooner. When diagnostic testing is negative, the possibility of a false negative result should be considered in the context of a patient's recent exposures and the presence of clinical signs and symptoms consistent with COVID-19. An individual without symptoms of COVID-19 and who is not shedding SARS-CoV-2 virus would expect to have a negative (not detected) result in this assay. Microbiology SPECIMEN FROM NASOPHARYNGEAL STRUCTURE / Unknown 01/10/2020 5:07 PM CDT 01/11/2020 Narrative Resulting Agency Comment Lab Testing performed at: [facility] [address] [facility] [id number] Rubia Zaldivar DO LAB - MICROBIOLOGY O RDERABLES [facility] INSURANCE BILL [address] [place] [address] * CT CHEST WO CONTRAST (01/10/2020 2:52 PM CDT) Only the most recent of2 resultswithin the time period is included. Anatomical Region Laterality Modality Chest Computed Tomogra phy 01/10/2020 2:54 PM CDT Impressions 01/10/2020 3:12 PM CDT Patient has minimal scattered groundglass areas of infiltrate in the left upper lobe are nonspecific but can be seen in viral pneumonia including covid-19. *Reading Radiologist: Bulmaro Leonard on 01/10/2020 at 3:12 PM Narrative 01/10/2020 3:12 PM CDT Exam: CT Chest without IV contrast. History: Dyspnea on exertion. Previously positive for covid 19 Comparison: 11/24/2018 TECHNIQUE: Serial contiguous transaxial images through the chest was obtained without IV administration of contrast. IV access was attempted and was unsuccessful. FINDINGS: The thyroid bed and supra clavicular regions appear within normal limits. The thoracic aorta is of normal caliber. There is no evidence of abnormal hilar or mediastinal adenopathy. This patient does have some mild diffuse emphysematous changes. There is calcified granuloma at the right lung base posteriorly. There is some minimal groundglass scattered areas of infiltrate in the left upper lobe. Remainder of the lung valladares are essentially clear. These infiltrates are nonspecific but could represent evidence of viral pneumonia including covid-19. The findings on CT are nonspecific and overlap with other infectious etiologies including influenza. Dr. Zaldivar was notified of findings at 3:11 PM on 01/10/2020. There is no evidence of vascular congestion. There are no pleural effusions. Procedure Note Bulmaro Leonard MD - 01/10/2020 Exam: CT Chest without IV contrast. History: Dyspnea on exertion. Previously positive for covid 19 Comparison: 11/24/2018 TECHNIQUE: Serial contiguous transaxial images through the chest was obtained without IV administration of contrast. IV access was attempted and was unsuccessful. FINDINGS: The thyroid bed and supra clavicular regions appear within normal limits. The thoracic aorta is of normal caliber. There is no evidence of abnormal hilar or mediastinal adenopathy. This patient does have some mild diffuse emphysematous changes. There is calcified granuloma at the right lung base posteriorly. There is some minimal groundglass scattered areas of infiltrate in the left upper lobe. Remainder of the lung valladares are essentially clear. These infiltrates are nonspecific but could represent evidence of viral pneumonia including covid-19. The findings on CT are nonspecific and overlap with other infectious etiologies including influenza. Dr. Zaldivar was notified of findings at 3:11 PM on 01/10/2020. There is no evidence of vascular congestion. There are no pleural effusions. IMPRESSION Patient has minimal scattered groundglass areas of infiltrate in the left upper lobe are nonspecific but can be seen in viral pneumonia including covid-19. *Reading Radiologist: Bulmaro Leonard on 01/10/2020 at 3:12 [address] Zaldivar DO CT ORDERABLES * CARDIAC RHYTHM STRIP ORDER (12/06/2019 2:07 PM CDT) Only the most recent of3 resultswithin the time period is included. Narrative 12/06/2019 2:07 PM CDT Ordered by an unspecified provider. Scanned Document CARDIAC SERVICES ORD ERABLES * (ABNORMAL) POTASSIUM BLOOD (12/04/2019 3:42 AM CDT) Potassium 3.4(L) 3.5 - 5.1 mmol/L 12/04/2019 5:08 AM CDT [facility] Blood BLOOD SPECIMEN / Unknown Venipuncture / Unknown 12/04/2019 3:42 AM CDT 12/04/2019 4:45 AM CDT Elena Cerrato MD LAB - CHEMISTRY ORDE MICKEY Performing Organization Address [facility] Co de Phone Number [facility] [address] [place] [address] * O+P RST RFLXED (12/04/2019 2:10 AM CDT) Pathologist [facility] Result 1 Comment 12/06/2019 12:06 AM CDT [facility] ([facility]) Comment: No ova, cysts, or parasites seen. One negative specimen does not rule out the possibility of a parasitic infection. Stool STOOL SPECIMEN / Unknown Collection / Unknown 12/04/2019 2:10 AM CDT 12/04/2019 2:21 AM CDT Narrative [facility] ([facility]) - 12/06/2019 12:06 AM CDT Performed at: [address] [place] [id number] Cell Geneticist: Dwight Lovett PhD, Phone: [phone] Elena Cerrato MD LAB - MICROBIOLOGY O RDERABLES Performing Organization Address City/[facility]/ZIP Co de Phone Number [facility] [address] [place] [address] * O+P PANEL (12/04/2019 2:10 AM CDT) Only the most recent of2 resultswithin the time period is included. O+P Exam Final report 12/06/2019 12:06 AM CDT [facility] ([facility]) Comment: These results were obtained using wet preparation(s) and trichrome stained smear. This test does not include testing for Cryptosporidium parvum, Cyclospora, or Microsporidia. Stool STOOL SPECIMEN / Unknown Collection / Unknown 12/04/2019 2:10 AM CDT 12/04/2019 2:21 AM CDT Narrative [facility] ([facility]) - 12/06/2019 12:06 AM CDT Performed at: [address] [id number] Cell Geneticist: Dwight Lovett PhD, Phone: [phone] Elena Cerrato MD LAB - MICROBIOLOGY O RDERABLES [facility] ([facility]) [address] [place] [address] * CT ABDOMEN AND PELVIS NON IV CONTRAST (11/30/2019 5:52 PM CDT) Anatomical Region Laterality Modality Abdomen, Pelvis Computed Tomogra phy 11/30/2019 6:41 PM CDT Impressions 11/30/2019 6:46 PM CDT Small bibasilar pleural effusions with right lower lobe consolidation and lingular consolidation. Midline ventral umbilical hernia containing fat No bowel obstruction or gross inflammatory changes *Reading Radiologist: Dante Moser on 11/30/2019 at 6:46 PM Narrative 11/30/2019 6:[address] abdomen without contrast CT pelvis without contrast INDICATION: abdominal pain. Fever. Nausea. Vomiting. TECHNIQUE: 5 mm axial images through the abdomen and pelvis noncontrast COMPARISON: June 26, 2015 FINDINGS: CT ABDOMEN: Small right basilar pleural effusion measures at least 0.83 cm. Subpleural consolidation or atelectasis is also demonstrated. There is consolidation in the lingula. Small left basilar pleural effusion is also demonstrated. The unenhanced portions of the liver are unremarkable. Surgical clips overlie the gallbladder fossa. The spleen, pancreas, and adrenal glands show no acute abnormalities. No renal calculi or obstructive uropathy is demonstrated. There is no bowel obstruction, free air or free fluid. There is a midline ventral umbilical hernia containing fat. CT PELVIS: Calcified phleboliths are present in the pelvis. No focal mesenteric inflammatory changes are seen. Urinary bladder is partially distended. No bony destructive process is present. Procedure Note Dante Moser MD - 11/30/2019 [address] abdomen without contrast CT pelvis without contrast INDICATION: abdominal pain. Fever. Nausea. Vomiting. TECHNIQUE: 5 mm axial images through the abdomen and pelvis noncontrast COMPARISON: June 26, 2015 FINDINGS: CT ABDOMEN: Small right basilar pleural effusion measures at least 0.83 cm. Subpleural consolidation or atelectasis is also demonstrated. There is consolidation in the lingula. Small left basilar pleural effusion is also demonstrated. The unenhanced portions of the liver are unremarkable. Surgical clips overlie the gallbladder fossa. The spleen, pancreas, and adrenal glands show no acute abnormalities. No renal calculi or obstructive uropathy is demonstrated. There is no bowel obstruction, free air or free fluid. There is a midline ventral umbilical hernia containing fat. CT PELVIS: Calcified phleboliths are present in the pelvis. No focal mesenteric inflammatory changes are seen. Urinary bladder is partially distended. No bony destructive process is present. IMPRESSION Small bibasilar pleural effusions with right lower lobe consolidation and lingular consolidation. Midline ventral umbilical hernia containing fat No bowel obstruction or gross inflammatory changes *Reading Radiologist: Dante Moser on 11/30/2019 at 6:46 PM Elena Cerrato MD CT ORDERABLES * STREP PNEUMONIAE ANTIGEN URINE (11/29/2019 1:53 PM CDT) Streptococcus pneumoniae Antigen Urine Negative Negative 11/30/2019 6:[address] [facility] Urine URINE / Unknown Collection / Unknown 11/29/2019 1:53 PM CDT 11/29/2019 2:16 PM CDT Narrative [facility] - 11/30/2019 6:44 AM CDT Patients who have received the Streptococcus pneumoniae vaccines may test positive in the 48 hours following vaccination. It is recommended to avoid testing within five days of receiving vaccination. Testing pediatric patients is discouraged because of their high rates of nasal colonization with Streptococcus pneumoniae leading to false positive results. Samples from patients taking antibiotics for more than 24 hours may cause false negatives. Elena Cerrato MD LAB - MICROBIOLOGY O BILL Performing Organization Address [facility] de Phone Number [facility] [address] [place] [address], [facility] [phone] * LEGIONELLA ANTIGEN URINE (11/29/2019 1:53 PM CDT) Legionella Antigen Urine Negative Negative 11/30/2019 6:54 AM CDT [facility] Urine URINE / Unknown Collection / Unknown 11/29/2019 1:53 PM CDT 11/29/2019 2:16 PM CDT Narrative [facility] - 11/30/2019 6:54 AM CDT This assay detects Legionella pneumophila serogroup one (1) antigen. A negative test result does not rule out the possibility of Legionella infection due to other serogroups or species of Legionella. A positive result may indicate a recent or remote infection with serogroup 1. Elena Cerrato MD LAB - MICROBIOLOGY O BILL Performing Organization Address [facility] de Phone Number [facility] [address] [place] [address], [facility] [phone] * (ABNORMAL) BASIC METABOLIC PANEL (CALCIUM TOTAL) (11/29/2019 3:43 AM CDT) Only the most recent of3 resultswithin the time period is included. Pathologist [facility] Glucose 92 70 - 105 mg/dL 11/29/2019 5:36 AM CDT [facility] Sodium 139 136 - 145 mmol/L 11/29/2019 5:36 AM CDT [facility] Potassium 3.2(L) 3.5 - 5.1 mmol/L 11/29/2019 5:36 AM CDT [facility] Chloride 107 98 - 107 mmol/L 11/29/2019 5:36 AM CDT [facility] CO2 21(L) 23 - 31 mmol/L 11/29/2019 5:36 AM CDT [facility] Calcium 8.0(L) 8.4 - 10.4 mg/dL 11/29/2019 5:36 AM CDT [facility] Anion Gap 11 8 - 16 mmol/L 11/29/2019 5:36 AM CDT [facility] BUN 8 7 - 18.7 mg/dL 11/29/2019 5:36 AM CDT [facility] Creatinine 0.72 0.57 - 1.11 mg/dL 11/29/2019 5:36 AM CDT [facility] eGFR by MDRD >60 >60 mL/min/1.7 3m2 11/29/2019 5:36 AM CDT [facility] eGFR by MDRD >60 >60 mL/min/1.7 3m2 11/29/2019 5:36 AM CDT [facility] Blood BLOOD SPECIMEN / Unknown Venipuncture / Unknown 11/29/2019 3:43 AM CDT 11/29/2019 5:13 AM CDT Komal ARRINGTON LAB - CHEMISTRY OR DERABLES [facility] [address] [place] [address] * (ABNORMAL) URINE MICROSCOPIC ONLY REFLEX TO CULTURE (11/28/2019 6:12 PM CDT) Reflex Status Culture to follow 11/28/2019 7:17 PM CDT [facility] RBC UA 0-2 None Seen, 0-2, 3-5 # /hpf 11/28/2019 7:17 PM CDT [facility] WBC UA 11-20(A) None Seen, 0-5 # /hpf 11/28/2019 7:17 PM CDT [facility] Bacteria UA None Seen None Seen 11/28/2019 7:17 PM CDT [facility] Squamous Epithelial Cells 11-20(A) None Seen, 0-2, 3-5 /hpf 11/28/2019 7:17 PM CDT [facility] Mucus UA 4+ /LPF 11/28/2019 7:17 PM CDT [facility] Hyaline Casts 3-5(A) None Seen, 0-2 # /lpf 11/28/2019 7:17 PM CDT [facility] Urine URINE SPECIMEN OBTAINED BY CLEAN CATCH PROCEDURE / Unknown Collection / Unknown 11/28/2019 6:12 PM CDT 11/28/2019 7:07 PM CDT Narrative [facility] - 11/28/2019 7:17 PM CDT Guicho Ayan MANAGER [employer]ER [employer]OTIONALLY IMPAIRED LAB - URINALYSIS ORDERABLES [facility] [address] [place] [address] * (ABNORMAL) URINALYSIS REFLEX MICROSCOPIC REFLEX CULTURE (11/28/2019 6:12 PM CDT) Only the most recent of2 resultswithin the time period is included. Color UA Mariah(A) Straw, Yellow 11/28/2019 7:13 PM CDT [facility] Clarity UA Slt Cloudy(A) Clear 11/28/2019 7:13 PM CDT [facility] Glucose UA Negative Negative 11/28/2019 7:13 PM CDT [facility] Bilirubin UA Negative Negative 11/28/2019 7:13 PM CDT [facility] Ketone UA Trace(A) Negative 11/28/2019 7:13 PM CDT [facility] Specific [place] UA 1.030 1.005 - 1.030 11/28/2019 7:13 PM CDT [facility] Blood UA Negative Negative 11/28/2019 7:13 PM CDT [facility] pH UA 5.0 5.0 - 8.0 pH 11/28/2019 7:13 PM CDT [facility] Protein UA 2+(A) Negative 11/28/2019 7:13 PM CDT [facility] Urobilinogen UA Negative Negative mg/dL 11/28/2019 7:13 PM CDT [facility] Nitrite UA Negative Negative 11/28/2019 7:13 PM CDT [facility] Leukocyte UA Negative Negative 11/28/2019 7:13 PM CDT [facility] Urine Microscopy Urine microscopy to follow 11/28/2019 7:13 PM CDT [facility] Reflex Status Culture not indicated 11/28/2019 7:13 PM CDT [facility] Urine URINE SPECIMEN OBTAINED BY CLEAN CATCH PROCEDURE / Unknown Collection / Unknown 11/28/2019 6:12 PM CDT 11/28/2019 7:07 PM CDT Narrative [facility] - 11/28/2019 7:13 PM CDT Ascorbic Acid can cause false negative urine strip tests for blood, glucose, nitrite, and bilirubin. Guicho Botello MANAGER QUALITY SYSTEMS-TEACHER EMOTIONALLY IMPAIRED LAB - URINALYSIS ORDERABLES [facility] [address] [place] [id number] * RESPIRATORY PATHOGEN PANEL BY PCR (11/28/2019 3:47 PM CDT) Adenovirus PCR Not detected Not detected, Invalid, Indeterminate 11/28/2019 10:16 PM CDT [facility] Coronavirus PCR Not detected Not detected, Invalid, Indeterminate 11/28/2019 10:16 PM CDT [facility] Human Metapneumovirus PCR Not detected Not detected, Invalid, Indeterminate 11/28/2019 10:16 PM CDT [facility] Human Rhinovirus/Entero virus PCR Not detected Not detected, Invalid, Indeterminate 11/28/2019 10:16 PM CDT [facility] Influenza A PCR Not detected Not detected, Equivocal, Invalid, Indeterminate 11/28/2019 10:16 PM CDT [facility] Influenza B PCR Not detected Not detected, Invalid, Indeterminate 11/28/2019 10:16 PM CDT [facility] Parainfluenza Virus 1 PCR Not detected Not detected, Invalid, Indeterminate 11/28/2019 10:16 PM CDT [facility] Parainfluenza Virus 2 PCR Not detected Not detected, Invalid, Indeterminate 11/28/2019 10:16 PM CDT [facility] Parainfluenza Virus 3 PCR Not detected Not detected, Invalid, Indeterminate 11/28/2019 10:16 PM CDT [facility] Parainfluenza Virus 4 PCR Not detected Not detected, Invalid, Indeterminate 11/28/2019 10:16 PM CDT [facility] Respiratory Syncytial Virus PCR Not detected Not detected, Invalid, Indeterminate 11/28/2019 10:16 PM CDT [facility] Bordetella pertussis PCR Not detected Not detected, Invalid 11/28/2019 10:16 PM CDT [facility] Chlamydia pneumoniae PCR Not detected Not detected, Invalid, Indeterminate 11/28/2019 10:16 PM CDT [facility] Mycoplasma pneumoniae PCR Not detected Not detected, Invalid, Indeterminate 11/28/2019 10:16 PM CDT [facility] Microbiology SPECIMEN FROM NASOPHARYNGEAL STRUCTURE / Unknown Collection / Unknown 11/28/2019 3:47 PM CDT 11/28/2019 4:01 PM CDT Narrative [facility] - 11/28/2019 10:16 PM CDT This test is able to detect the following human coronaviruses: HKU1, NL63, 229E, and OC43. It will NOT detect 2019 Novel Coronavirus (2019-nCoV). If 2019-nCoV is suspected contact Infection Prevention for isolation and testing guidance. Guicho ARRINGTON LAB - MICROBIOLOG Y ORDERABLES [facility] [address] [place] [address], [facility] [phone] * PROCALCITONIN LEVEL (11/28/2019 1:29 PM CDT) Procalcitonin 0.05 <0.10 ng/mL 11/28/2019 2:32 PM CDT [facility] Blood BLOOD SPECIMEN / Unknown Venipuncture / Unknown 11/28/2019 1:29 PM CDT 11/28/2019 1:52 PM CDT Narrative [facility] - 11/28/2019 2:32 PM CDT The change in procalcitonin (PCT) concentration over time provides support in decision making on antibiotic discontinuation for suspected or confirmed septic patients. Follow-up samples should be tested once every 1-2 days based upon physician discretion taking into account the patient s evolution and progress. Consider discontinuation of antibiotic therapy if the PCT current is <= 0.5 ng/mL or if the delta PCT is > 80%. Duration of antibiotics should not be determined solely on PCT; established guidelines for the indication should be followed. PCT peak: Highest observed PCT concentration PCT current: Most recent PCT concentration Calculate delta PCT using the following equation: Delta PCT = PCT Peak PCT current X 100% PCT Peak The Change in Procalcitonin Calculator is available at [email or web address] If clinical picture has not improved and PCT remains high, reevaluate and consider treatment failure or other causes. Guicho ARRINGTON LAB - CHEMISTRY O RDERABLES Performing Organization Address [facility] Co de Phone Number [facility] [address] [place] [address] * CULTURE BLOOD (11/28/2019 1:29 PM CDT) Only the most recent of2 resultswithin the time period is included. Pathologist [facility] Culture No growth day 5 ELIZABETH 12/03/2019 5:[address] [facility] Blood PERIPHERAL BLOOD / Unknown Venipuncture / Unknown 11/28/2019 1:29 PM CDT 11/28/2019 1:55 PM CDT [facility] - [facility] Y ORDERABLES Performing Organization Address [facility] de Phone Number [facility] [address] [place] [address], [facility] [phone] * (ABNORMAL) D-DIMER (11/28/2019 1:29 PM CDT) Only the most recent of2 resultswithin the time period is included. Pathologist [facility] D-Dimer 0.63(H) 0.27 - 0.5 ug/mL FEU 11/28/2019 2:10 PM CDT [facility] Blood BLOOD SPECIMEN / Unknown Venipuncture / Unknown 11/28/2019 1:29 PM CDT 11/28/2019 1:52 PM CDT Narrative [facility] - 11/28/2019 2:10 PM CDT In the absence of clinical symptoms, a value less than or equal to 0.5 mcg/mL FEU significantly decreases the probability of PE/DVT (negative predictive value >95%). 1 mcg/ml FEU = 1 Fibrinogen Equivalent Unit (approximates 0.5 mcg/mL of D- dimer). Gu[facility] - COAGULATION ORDERABLES Performing Organization Address [facility] [facility] de Phone Number [facility] [address] [place] [address] * LACTIC ACID BLOOD (11/28/2019 1:29 PM CDT) Pathologist [facility] Lactic Acid 0.94 0.5 - 2.2 mmol/L 11/28/2019 2:08 PM CDT [facility] Blood BLOOD SPECIMEN / Unknown Venipuncture / Unknown 11/28/2019 1:29 PM CDT 11/28/2019 1:52 PM CDT Guicho Saucedodevonkarmen MANAGER QUALITY SYSTEMS-TEACHER EMOTIONALLY IMPAIRED LAB - CHEMISTRY O RDERABLES Performing Organization Address [facility] Co de Phone Number [facility] [id number] [place] [id number] * FERRITIN (11/28/2019 1:29 PM CDT) Pathologist [facility] Ferritin 158 5 - 204 ng/mL 11/28/2019 2:33 PM CDT [facility] Blood BLOOD SPECIMEN / Unknown Venipuncture / Unknown 11/28/2019 1:29 PM CDT 11/28/2019 1:52 PM CDT Guicho Kukathryn MANAGER QUALITY SYSTEMS-TEACHER EMOTIONALLY IMPAIRED LAB - CHEMISTRY O RDERABLES Performing Organization Address [facility] de Phone Number [facility] [id number] [place] [address] * GROSS + MICRO EXAM (STL) (09/27/2019 1:30 PM GERIATRIC NURSING ASSISTANT) Pathologist [facility] Case Report Surgical Pathology Report Case: [id number] Authorizing Provider: Ross Torres MD Collected: 09/27/2019 01:30 PM Ordering Location: [facility] Received: 09/27/2019 02:43 PM Pathologist: Brian Bang MD Specimen: Soft Tissue Mass, right back soft tissue mass 09/29/2019 1:37 PM GERIATRIC NURSING ASSISTANT [facility] Final Diagnosis Soft tissue mass, right back, excision: -- Lipoma MC 09/29/2019 1:37 PM GERIATRIC NURSING ASSISTANT [facility] Gross Description The specimen is received in a formalin-filled container labeled with the patient s name, Aime Valladares, and right back soft tissue mass, and consists of an unoriented brown, unremarkable skin ellipse (7.2 x 2.9 cm) with an underlying subcutaneous mass (11.5 x 5.5 x 4.5 cm). The resection surface is inked. The resection surface of the subcutaneous soft tissue mass appears to be at least partially encapsulated or pseudoencapsulated and consists of unremarkable adipose tissue. The specimen is sectioned to show homogenous yellow lobular adipose tissue throughout with no apparent areas of fibrosis, necrosis, or hemorrhage. In addition, there is a detached unoriented, irregular piece of fibromembranous tissue and adipose tissue (5 x 2 x 0.5 cm) in the container, which shows no discrete lesions. 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 No evidence of malignancy is seen. 09/29/2019 1:37 PM [facility] Disclaimer All histochemical and/or immunohistochemical results are interpreted with controls that demonstrate appropriate staining reactions before reporting results. Note on use of immunocytochemistry reagents: This test was developed and its performance characteristic determined by [facility], Department of Laboratory Medicine. It has not been cleared or approved by the U.S. Food and Drug Administration (FDA). The FDA has determined that such clearance or approval is not necessary. The test is used for clinical purpose. It should not be regarded as investigational or for research. This laboratory is certified to perform high complexity testing. 09/29/2019 1:37 PM GERIATRIC NURSING ASSISTANT [facility] Embedded Images 09/29/2019 1:37 PM GERIATRIC NURSING ASSISTANT [facility] Pathology/Cytolo gy SOFT TISSUE MASS / Unknown 09/27/2019 1:30 PM GERIATRIC NURSING ASSISTANT 09/27/2019 2:43 PM GERIATRIC NURSING ASSISTANT Ross Torres MD LAB - PATHOLOGY/CYTO LOGY ORDERABLES [facility] [address] [place] [address] * LARYNGEAL MASK AIRWAY (09/27/2019 1:12 PM GERIATRIC NURSING ASSISTANT) Narrative Nasir Cartagena MD - 09/27/2019 1:12 PM GERIATRIC NURSING ASSISTANT Pierre Matson APRN-CRNA 09/27/2019 1:13 PM LMA Placement Procedure/LDA Note: LMA Insertion Date/Time: 09/27/2019 1:03 PM Procedure: LMA. Pretreatment: 100% O2 Induction: standard IV Patient position: supine. Mask Ventilation: not attempted Type: LMA Size: 4 Number of Attempts: 1. Placement verified by: direct visualization and CO2 monitor Procedure Start Time: 09/27/2019 1:03 PM. Procedure End Time: 09/27/2019 1:04 PM. Procedure Total Time: 1 minutes. Staff Section Anesthesia Provider: Pierre Matson APRN-CRNA, Performed the procedure Nasir Cartagena MD GENERAL ANESTHESIA O RDERABLES * C DIFFICILE TOXIN A+B (09/18/2019 11:37 AM GERIATRIC NURSING ASSISTANT) C difficile Toxin A + B Negative Negative [facility] INSURANCE BILL Comment:FASTING 09/18/2019 11:3 7 AM GERIATRIC NURSING ASSISTANT 09/19/2019 Narrative Resulting Agency Comment Lab Testing performed at: [employer] [facility] [facility] [phone] Rubia Zaldivar DO LAB - MICROBIOLOGY O RDERABLES Performing Organization Address City/[facility]/ZIP Co de Phone Number [facility] INSURANCE BILL [address] [place] [address] * LIPASE BLOOD (09/18/2019 11:19 AM GERIATRIC NURSING ASSISTANT) Only the most recent of2 resultswithin the time period is included. Lipase 34 14 - 72 U/L [facility] INSURANCE BILL Blood BLOOD SPECIMEN / Unknown 09/18/2019 11:19 AM GERIATRIC NURSING ASSISTANT 09/18/2019 Narrative Resulting Agency Comment Lab Testing performed at: [employer] [address] [facility] [place] [phone] Rubia Zaldivar DO LAB - CHEMISTRY ORDE RABLES [facility] INSURANCE BILL [address] [place] [address] * GGT (09/18/2019 11:19 AM GERIATRIC NURSING ASSISTANT) GGT 29 0 - 60 IU/L [facility] INSURANCE BILL Blood BLOOD SPECIMEN / Unknown 09/18/2019 11:19 AM GERIATRIC NURSING ASSISTANT 09/18/2019 Narrative Resulting Agency Comment Lab Testing performed at: [facility] [address] [facility] [place] [phone] Rubia Zaldivar DO LAB - CHEMISTRY ORDE RABFRANCOIS Performing Organization Address [facility] de Phone Number [facility] INSURANCE BILL [address] [place] [address] * AMYLASE BLOOD (09/18/2019 11:19 AM GERIATRIC NURSING ASSISTANT) Only the most recent of2 resultswithin the time period is included. Amylase 48 31 - 110 U/L [facility] INSURANCE BILL Comment:Please note refere nce interval change Blood BLOOD SPECIMEN /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
--- OUTSIDE RECORDS SUMMARY | 2024-10-21 13:37 | XMS_ITS | Encounter Summary ---
Author Organization [facility] Health Address [address] [place] [address] Care Team Providers Care Security Sergeant Name Role Phone Rubia Zaldivar DO Primary Care Provider [phone] Rebecca Wright MD Unavailable Kadie Keating MD Unavailable [phone] Reason for Visit * Reason Comments Refill Request Encounter Details Date Type Department Care Team (Late st Contact Info) Description 10/19/[address] [facility] [id number] [place] [address], [address] [address] [place] [id number] [address] Refill Request Social History Tobacco Use Types Packs/Day Years Used Date Smoking Tobacco: Never Smokeless Tobacco: Never Alcohol Use Standard Drinks/Week Comments Not Currently 0 (1 standard drink = 0.6 oz pur e alcohol) occas PHQ-2 Answer Date Recorded Patient Health Questionnaire-2 Score 0 07/19/2024 Sex and Gender Information Value Date Recorded Sex Assigned at Not on file Gender Identity Female 11/13/2020 9:48 AM CDT Sexual Orientation Not on file documented as of this encounter Functional Status Functional Status Response Date of Assess ment Is person deaf or have serious hearing difficult y? No 12/13/2020 Is person blind or have serious difficulty seein g? No 12/13/2020 Does person have serious dif ficulty walking/climbing stairs? No 12/13/2020 Does person have difficulty dressing/bathing? No 12/13/2020 Does person have difficulty doing errands alone? No 12/13/2020 Cognitive Status Response Date of Assessm ent Does person have difficulty concentrating/remembering/making decisions? No 12/13/2020 documented as of this encounter Plan of Treatment Upcoming Encounters Date Type Department Care Team (Late st Contact Info) Description 10/24/2024 11:15 AM CDT Office Visit [facility] - Family Medicine [address] [place] [address] Rubia Zaldivar, [address] [place] [id number] documented as of this encounter Goals Goal Patient Goal Type Associated Problems Recent Progress Patient-Stated? 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 Eating healthy foods may help you feel better and have more energy. To help control your blood pressure, you may need to limit the amount of salt and fat you eat. Read labels to see how much sodium (salt or sodium chloride) is in the food that you buy at the store. Avoid foods and drinks that are high in sodium (salt). These include smoked meats (such as ham and everett), cheese, canned and frozen foods, and butter and margarine. Read all labels carefully. Do not add salt to your food. Learn to use fresh herbs, spices, or salt substitutes to add flavor to your food. Ask your provider for any dietary restrictions that are appropriate for you. Where can I go for more information? [employer] National Center: http://www.americanheart.org 1. In the top header, click C onditions . 2. In the top header, click h igh blood pressure. 3. For a printable blood pressure tracker, scroll toward the bottom of the page to Related Tools, and click H BP Trackers. 5-204-AMO-[place]-1 or ( ) National Heart, Lung and Blood [place]: http://www.nhlbi.nih.gov/health/infoctr/index.htm documented as of this encounter Visit Diagnoses Diagnosis Hypertension, essential Unspecified essential hypertension documented in this encounter Care Teams Security Sergeant Relationship Specialty Start Date End Date Rubia Zaldivar DO [address] [place] [address] PCP - General Family Medicine 08/18/18 [place] [address] [facility] [employer] [address] [address] Pulmonary Disease 02/06/20 [place] [address] [facility] [employer] [address] [address] Rheumatology 12/03/20 documented as of this encounter
--- OUTSIDE RECORDS SUMMARY | 2024-10-21 13:37 | XMS_ITS | Clinical Summary ---
Author Organization [facility] [employer] Address [address] [facility] [place] [address] Care Team Providers Care Welcome Wagon Hostess Name Role Phone Rubia Zaldivar DO Primary Care Provider [phone] Rebecca Wright MD Unavailable Kadie Keating MD Unavailable [phone] Source Comments [facility],non-owned Affiliates and Associated Physician Practices is amultiple site organization consisting of ambulatory clinics and hospital sitesin [place], [place], [place] and [place]. This disclosure is being madepursuant to the Care Everywhere program and may not contain all information available regarding this patient. Last updated 18.[facility] Allergies Active Allergy Reactions Criticality Noted Date Comments Cat Hair Extract Urticaria Medium 07/27/2017 House Dust [Other] Other 07/27/2017 Received name: House Dust Allergenic Extract Gaines Rash Medium 06/09/2023 Tree Nuts Urticaria,Rash Medium 07/27/2017 Wheat Bran Urticaria Medium 07/27/2017 Medications * Be aware that medications may not be up to date on this document. Alwaysverify current medications with the patient. Medication Sig Dispensed Refills Start Date End Date Status buPROPion XL 24hr (Wellbutrin-XL) 300 MG tabletIndications: Depression, unspecified depression type Take 1 (one) tablet by mouth once daily 90 tablet 3 12/16/2022 Active fluticasone-salmet emeli (Advair/Wixela) 500-50 MCG/ACT inhalerIndications :Mild intermittent asthma without complication (HCC) Inhale 1 (one) puff by mouth 2 times daily 1 Each 11 12/16/2022 Active montelukast (Singulair) 10 MG tabletIndications: Moderate persistent asthma with acute exacerbation (HCC) Take 1 (one) tablet by mouth at bedtime 90 tablet 3 12/16/2022 Active umeclidinium (Incruse Ellipta) 62.5 MCG/ACT inhalerIndications :Moderate persistent asthma with acute exacerbation (HCC) Inhale 1 (one) puff by mouth once daily 1 Each 11 12/16/2022 Active zolpidem (Ambien) 5 MG tabletIndications: Sleep disturbance,Nausea Take 1 (one) tablet by mouth nightly as needed for Insomnia 30 tablet 12/16/2022 Active omeprazole (PriLOSEC) 20 MG capsuleIndications :Nausea Take 1 (one) capsule by mouth daily before breakfast 90 capsule 3 12/16/2022 Active ondansetron, disintegrating, (Zofran ODT) 4 MG tablet Take 1 (one) tablet by mouth every 6 hours as needed for Nausea/Vomiting Allow tablet to dissolve on the tongue 40 tablet 1 01/29/2023 Active methocarbamol (Robaxin) 750 MG tablet Take 1 (one) tablet by mouth every 8 hours as needed 02/25/2023 Active carvedilol (Coreg) 12.5 MG tablet Take 1 (one) tablet by mouth 2 times daily with morning and evening meal 180 tablet 4 04/26/2023 Active fluticasone propionate (Flonase) 50 MCG/ACT nasal sprayIndications:F acial swelling Reeders 2 (two) sprays into each nostril once daily 16 g 1 10/06/2023 Active predniSONE (Deltasone) 20 MG tablet Take 2 (two) tablets by mouth once daily 10 tablet 11/23/2023 Active amLODIPine (Norvasc) 5 MG tabletIndications: Hypertension, essential Take 1 (one) tablet by mouth once daily 90 tablet 3 02/29/2024 Active tiZANidine (Zanaflex) 4 MG tabletIndications: Masseter muscle spasm Take 1 (one) tablet by mouth every 8 hours as needed for Muscle Spasms 40 tablet 1 03/01/2024 Active predniSONE (Deltasone) 5 MG tablet Please take 15 mg PO x 5 days, 10 mg PO x 5 days and 5 mg PO x 5 days 30 tablet 03/03/2024 Active adalimumab (Humira) 40 MG/0.4ML injection Inject 0.4 mL subcutaneously every 14 days 0.8 mL 1 05/10/2024 Active ibuprofen (Motrin) 800 MG tablet 07/04/2024 Active traMADol (Ultram) 50 MG tabletIndications: Multiple joint pain,Muscle pain Take 1 (one) tablet by mouth every 6 hours as needed for Pain 45 tablet 08/11/2024 Active vitamin D (Cholecaciferol) 125 MCG (5000 UT) capsuleIndications :COVID Take 1 (one) capsule by mouth once daily 90 capsule 3 09/11/2024 Active vitamin C (Ascorbic Acid) 1000 MG tabletIndications: COVID Take 1 (one) tablet by mouth once daily 90 tablet 3 09/11/2024 Active albuterol HFA (Ventolin HFA) 108 (90 Base) MCG/ACT inhalerIndications :Wheezing,COVID Inhale 2 (two) puffs by mouth every 4 hours as needed 18 g 09/12/2024 Active albuterol (Proventil;Ventoli n) (2.5 MG/3ML) 0.083% nebulizer solutionIndication s:Wheezing,COVID Inhale 2.5 (two and one-half) mg by mouth 4 times daily as needed for Shortness of Breath 75 mL 5 09/12/2024 Active budesonide (Pulmicort) 0.5 MG/2ML nebulizer suspensionIndicati ons:Wheezing,COVID Inhale 2 mL by mouth 2 times daily Rinse mouth after use 90 mL 4 09/12/2024 Active benzonatate (Tessalon) 200 MG capsuleIndications :COVID Take 1 (one) capsule by mouth 3 times daily as needed for Cough 90 capsule 5 09/12/2024 Active irbesartan-hydroCH LOROthiazide (Avalide) 300-12.5 MG tabletIndications: Hypertension, essential Take 1 tablet by mouth once daily 30 tablet 09/15/2024 Active Active Problems Problem Noted Date Diagnosed Date Moderate persistent asthma without complication 02/06/2020 Hypokalemia 11/28/2019 Community acquired pneumonia 11/28/2019 Suspected COVID-19 virus infection 11/28/2019 Mass of skin of back 09/08/2019 Lipoma of torso 08/25/2018 Asthma 11/23/2017 Chest pain 11/23/2017 Overview (08/23/2018): Last Assessment & Plan: 47-year-old female with a past medical history of asthma admitted for chest pain. Chest pain reproducible on physical examination. Likely diagnosis costochondritis. Troponins negative 2. Prelim report of EKG remarkable for minimal ST depression. Heart score -1 (due to minimal ST depression and possible left axis deviation) -Admit to Dr. Benton -Admit to telemetry -Troponins negative x 3 -Repeat EKG negative for acute ST changes -Lipid panel ordered. ASCVD risk 1.8% -A1c 5.6 -Tylenol as needed pain -Stress test not ordered as patient has low likelihood of cardiac etiology of chest pain. Elevated blood pressure reading 11/23/2017 Overview (04/17/2021): Last Assessment & Plan: Blood pressure 158/110 at admission. Repeat 134/82 after Nitropaste -Continue to monitor blood pressure. -Can be elevated as patient is acutely sick -Most recent BP 134/79. Without medication -Will need close follow-up with PCP. Asthenia 12/16/2016 Benign essential hypertension 12/16/2016 Dysarthria on examination 12/16/2016 Neck pain 12/16/2016 Impaired glucose tolerance 11/06/2015 Vitamin D deficiency 11/06/2015 Chest pain 11/06/2015 Abnormal electrocardiogram 09/09/2015 Anemia 09/09/2015 Deep vein thrombosis (DVT) 09/09/2015 Overview (09/13/2020): 02 Obesity 09/09/2015 Palpitations 09/09/2015 Sleep apnea 09/09/2015 Family history of heart disease 10/09/2010 Vertigo 10/09/2010 Screening for condition 02/13/2009 Overview (05/09/2015): Adult Abstraction Problem List Screening Colonoscopy: Date:2004 Pap Smear: Date:07/15/2000 PPD negative 02/13/2009 Overview (02/13/2009): 01/14 Hay fever 02/13/2009 Overview (02/13/2009): Asthma attacks Resolved Problems Problem Noted Date Diagnosed Date Resolved Date Cough 08/11/2020 09/08/2020 Asthma exacerbation 11/23/2017 12/20/19 21 Encounters Date Type Department Care Team Description 10/19/2024 Refill [facility] [address], [address] [place] [address] Derek Palumbo MD Refill Request 09/15/2024 Refill [facility] [address], [address] [place] [address] Derek Palumbo MD Refill Request 09/12/2024 Orders Only [facility] [address] [place] [address] Rubia Zaldivar, DO Wheezing ; COVID 09/11/2024 Telephone [facility] [address] [place] [address] Rubia Zaldivar, DO Covid-19 Home Management 08/11/2024 Telephone [facility] [address] [place] [address] Rubia Zaldivar, DO Rx Medication Issue 08/10/2024 Refill [facility] [address] [place] [address] Rubia Zaldivar, Refill Request 08/01/2024 Refill [facility] [address], [address] [place] [address] Derek Palumbo MD Refill Request from Last 3 Months Family History Medical History Relation Name Comments Cancer Father prostate CAD (Coronary Artery Disease) Maternal Grandfather Heart Failure Maternal Grandfather Asthma Maternal Grandmother CAD (Coronary Artery Disease) Maternal Grandmother Cancer - Ovarian Maternal Grandmother Cancer - Uterine Maternal Grandmother Diabetes Maternal Grandmother Heart Failure Maternal Grandmother Stroke Maternal Grandmother Hypertension Mother CAD (Coronary Artery Disease) Paternal Grandfather Heart Failure Paternal Grandmother Cancer - Breast Neg Hx Cancer - Colon Neg Hx Relation Name Status Comments Brother Alive Father Alive Maternal Grandfather Maternal Grandmother Mother Alive Paternal Grandfather Paternal Grandmother Sister 1 Alive Sister 2 Alive Sister 3 Alive Sister 4 Alive Social History Tobacco Use Types Packs/Day Years [...] Comments Blood Pressure 142/88 07/19/2024 9:20 AM FLAKER TENDER Pulse 80 07/19/2024 9:20 AM FLAKER TENDER Temperature 36.7 C (98 F) 07/19/2024 9:20 AM FLAKER TENDER Respiratory Rate 18 04/06/2024 3:55 PM CDT Oxygen Saturation 99% 05/10/2024 1:51 PM CDT Inhaled Oxygen Concentration 21% 12/03/2019 7 :11 AM CDT Weight 110.2 kg (243 lb) 07/19/2024 9:20 AM FLAKER TENDER Height 163.8 cm (5' 4.5 ) 07/19/2024 9:20 AM FLAKER TENDER Body Mass Index 41.07 07/19/2024 9:20 AM FLAKER TENDER Plan of Treatment Upcoming Encounters Date Type Department Care Team (Late st Contact Info) Description 10/24/2024 11:15 AM CDT Office Visit [facility] [address] [place] [address] Rubia Zaldivar DO [address] [place] [id number] Health Maintenance Due Date Last Done Comments COLOGUARD (AGES 45-75) - COLON CA SCREENING [address] COLONOGRAPHY - COLON CA SCREENING 1970 FIT - COLON CA SCREENING 1970 FLEX SIG - COLON CA SCREENING 1970 DTAP/TDAP/TD VACCINES (1 - Tdap) 1989 HEPATITIS B VACCINE (1 of 3 - 19+ 3-dose series) 1989 PNEUMOCOCCAL VACCINE 50+ (1 of 2 - PCV) 1989 ZOSTER VACCINE (1 of 2) 1989 COVID-19 VACCINE (2 - Pfizer risk series) 08/17/2020 07/27/2020 INFLUENZA VACCINE (#1) 2024 DEPRESSION SCREENING 08/09/2024 09/15/2023, 12/17/19 MAMMOGRAM 07/05/2026 07/05/2024, 01/08, 01/25/2016 SCREENING FOR DIABETES 02/28/2027 , 02/23/2024, 11/18/2023, Additional history exists LIPID TESTING 02/28/2029 02/29/2024, 01/07, 08/23/2018 COLONOSCOPY - COLON CA SCREENING 03/12/2033 03/12/2023 Colorectal Cancer Screening 03/12/2033 HIV SCREENING Completed 01/29/2021 HEPATITIS C SCREENING Completed 11/18/2023 , 02/02/2023, 02/05/2021, Additional history exists HIB VACCINE Aged Out No longer eligi ble based on patient's age to complete this topic HPV VACCINE Aged Out No longer eligi ble based on patient's age to complete this topic MENINGOCOCCAL (Group B) VACCINE SHARED DECISION-MAKING Aged Out No longer eligible based on patient's age to complete this topic MENINGOCOCCAL GROUPS A/C/Y/W VACCINE Aged Out No longer eligible based on patient's age to complete this topic Goals Goal Patient Goal Type Associated Problems Recent Progress Patient-Stated? Author Blood Pressure < 140/90 Blood Pressure 142/88(2023 9:20 AM FLAKER TENDER) Anastasiia Hunt Note: Caring for Your High [...] Where can I go for more information? [place] [employer] National Center: http://www.americanheart.org 1. In the top header, click C onditions . 2. In the top header, click h igh blood pressure. 3. For a printable blood pressure tracker, scroll toward the bottom of the page to Related Tools, and click H BP Trackers. 4-283-KGS-USA-1 or ( ) National Heart, Lung and Blood [place]: http://www.nhlbi.nih.gov/health/infoctr/index.htm Procedures Procedure Name Priority Date/Time Associated Diagnosis Comments MAMMO BILAT DIAGNOSTIC W GIGI Routine 07/05/2024 11:51 AM FLAKER TENDER Breast pain LIPID PROFILE Routine 02/29/2024 3:57 PM CDT Screening for hyperlipidemia HEMOGLOBIN A1C Routine 02/29/2024 3:55 PM CDT Urinary frequency HEPATITIS SCREEN ACUTE ([facility]) Routine 11/18/2023 11:50 AM CDT Non-radiographic axial spondyloarthritis (HCC) Polyarthralgia Elevated C-reactive protein (CRP) Vitamin D deficiency High risk medications (not anticoagulants) long-term use Immunosuppressed status (HCC) HIV-1 HIV-2 ANTIBODY + HIV P24 AG PANEL Routine 01/29/2021 2:33 PM CDT Screen for STD (sexually transmitted disease) from Last 3 Months or Most Recently Relevant to Health Maintenance Results * Mammo Bilat Diagnostic W Gigi (07/05/2024 11:51 AM FLAKER TENDER) Anatomical Region Laterality Modality Breast Bilateral Mammography 07/05/2024 11:5 4 AM FLAKER TENDER Impressions 07/05/2024 12:00 PM FLAKER TENDER IMPRESSION: 1. There is no suspicious finding [...] 07/05/2024 12:00 PM Narrative 07/05/2024 12:00 PM FLAKER TENDER EXAMINATION: BILATERAL DIGITAL DIAGNOSTIC MAMMOGRAM AND BILATERAL [...] intermittent. Rubia Zaldivar DO MAMMO ORDERABLES * (ABNORMAL) LIPID PROFILE (02/29/2024 3:57 PM CDT) Cholesterol 237(H) <200 mg/dL [facility] ACCOUNT BILL Triglycerides 104 <150 mg/dL [facility] ACCOUNT BILL HDL Cholesterol 67 >40 mg/dL [facility] ACCOUNT BILL VLDL Calculated 21 <=30 mg/dL [facility] ACCOUNT BILL LDL Calculated 149(H) <130 mg/dL [facility] ACCOUNT BILL Comment:FASTING Blood BLOOD SPECIMEN / Unknown 02/29/2024 3:57 PM CDT 02/29/2024 Narrative Resulting Agency Comment Lab Testing performed at: [facility] [address] [place] [id number] Rubia Zaldivar LAB - CHEMISTRY ORDE RABFRANCOIS [facility] ACCOUNT BILL [address] [place] [address] * (ABNORMAL) HEMOGLOBIN A1C (02/29/2024 3:55 PM CDT) Hemoglobin A1c 5.8(H) <5.7 % [facility] [...] (HbF) exceeds 5% in the specimen. The [employer] assay for the measurement of HbA1c is a [facility] Glycohemoglobin Standardization Program (NGSP) certi fied method. FASTING Blood BLOOD SPECIMEN / Unknown 02/29/2024 3:55 PM CDT 02/29/2024 Narrative Resulting Agency Comment Lab Testing performed at: [facility] [address] [place] [id number] Rubia Zaldivar DO LAB - CHEMISTRY ORDE RABFRANCOIS [facility] ACCOUNT BILL [address] [place] [address] * HEPATITIS SCREEN ACUTE ([facility]) (11/18/2023 11:50 AM CDT) Pathologist [facility] Hepatitis A Virus Antibody IgM Non Reactive [...] Resulting Agency Comment Lab Testing performed at: [address] [place] [id number] Kadie Keating MD LAB - CHEMISTRY KRISTINA AREVALO Performing Organization Address [facility] de Phone Number [facility] ACCOUNT BILL [address] [place] [address] * HIV-1 HIV-2 ANTIBODY + HIV P24 AG PANEL (01/29/2021 2:33 PM CDT) Pathologist [facility] HIV Screen 4th Generation w Reflex NON-REACT [...] purpose. For additional information please refer to http://education.MailLift/faq/XLT923 (This link is being provided for informational/ educational purposes only.) The performance of this assay has not been clinically validated in patients less than 2 years old. Test Performed at: [facility] [address] [place] [address] CHRISTINE PYLE DO,MPH Blood BLOOD SPECIMEN / Unknown 01/29/2021 2:33 PM CDT 01/29/2021 2:35 PM CDT Fabi Pulliam MD LAB - CHEMISTRY ORD ERABLES [facility] [address] [place] [address] from Last 3 Months or Most Recently Relevant to Health Maintenance Advance Directives Documents on File Type Date Recorded Patient Registered Nurse Ambulatory Expl anation Adv Directive/Living Will/POA 12/02/2016 medication patient assistance program * Full Code (Latest Code Status on File) Date Activated Date Inactivated Comments 11/28/2019 3:51 PM 12/05/2019 1:57 PM * Full Code Date Activated Date Inactivated Comments 12/02/2016 3:09 AM 12/04/2016 1:47 PM * Full Code Date Activated Date Inactivated Comments 10/03/2015 12:38 AM 10/04/2015 6:37 PM Care Teams Welcome Wagon Hostess Relationship Specialty Start Date End Date Rubia Zaldivar DO [address] [place] [address] PCP - General Family Medicine 08/18/18 [place] [id number] [address] Pulmonary Disease 02/06/20 [place] [id number] [address] Rheumatology 12/03/20
--- OUTSIDE RECORDS SUMMARY | 2024-10-21 13:38 | XMS_ITS | Encounter Summary ---
Author Organization [facility] Address [address] [place] [address] Care Team Providers Care Personnel Interviewer Name Role Phone New Referring, Provider Primary Care Provider Un available Rubia Zaldivar DO Primary Care Provider Encounter Details Date Type Department Care Team (Late st Contact Info) Description 02/29/2020 Hospital Follow-up Call [facility] Clinical Decision Unit [place], [place] [id number] Cassie Escalante, RN Social History Tobacco Use Types Packs/Day Years Used Date Smoking Tobacco: Never Smokeless Tobacco: Never Alcohol Use Standard Drinks/Week Comments Not Currently 0 (1 standard drink = 0.6 oz pur e alcohol) social [facility] [place] [facility] - Occupational Stress Questionnaire Answer Date Recorded Feeling of Stress To some extent 11/11/2019 Exercise Vital Sign Answer Date Recorde d Days of Exercise per Week 7 days 2019 Minutes of Exercise per Session 30 min 11/11/2019 PRAPARE - Transportation Answer Date Re corded Lack of Transportation (Medical) No 11/11/2019 Lack of Transportation (Non-Medical) No 11/11/2019 Comments No Sex and Gender Information Value Date Recorded Sex Assigned at Not on file Legal Sex Female 7:17 PM CDT Gender Identity Not on file Sexual Orientation Not on file COVID-19 Exposure Response Date Recorded In the last month, have you been in contact with someone who was confirmed or suspected to have Coronavirus / COVID-19? No / Unsure 02/27/2020 3:55 AM CDT documented as of this encounter Functional Status * RETIRED Are you deaf or do you have serious difficulty hearing Answer Date of Assessment Author Status No 02/27/2020 4:01 AM CDT Activ e * RETIRED Are you blind or do you have serious difficulty seeing, even when wearing glasses? Answer Date of Assessment Author Status No 02/27/2020 4:01 AM CDT Activ e * Do you have serious difficulty walking or climbing stairs? Answer Date of Assessment Author Status No 02/27/2020 4:01 AM LYNDSAYT Cassie Starkey RN Active * Do you have difficulty dressing or bathing? Answer Date of Assessment Author Status No 02/27/2020 4:01 AM LYNDSAYT Cassie Starkey RN Active * Because of a physical, mental, or emotional condition, do you have difficulty doing errands alone such as visiting a doctor's office or shopping? Answer Date of Assessment Author Status No 02/27/2020 4:01 AM LYNDSAYT Cassie Starkey RN Active documented as of this encounter Mental Status * Because of a physical, mental, or emotional condition, do you have serious difficulty concentrating, remembering, or making decisions? Answer Entry Date Author Status No 02/27/2020 4:01 AM LYNDSAYT Cassie Starkey RN Active documented in this encounter Plan of Treatment Not on file documented as of this encounter Visit Diagnoses Not on filedocumented in this encounter Additional Health Concerns Infection Onset Date Last Indicated Resolved Time COVID-19 Rule Out 07/24/2023 07/24/2023 07/24/2023 3:15 PM DENIAL MANAGEMENT REPRESENTATIVE documented as of this encounter Care Teams Personnel Interviewer Relationship Specialty Start Date End Date New Referring, Provider PCP - General UNKNOWN PHYSICIAN SPECIALTY 02/26/20 10/23/20 Rubia Zaldivar DO [address] [place] [address] PCP - General EMERGENCY MEDICINE 10/24/20 documented as of this encounter
--- OUTSIDE RECORDS SUMMARY | 2024-10-21 13:38 | XMS_ITS | Referral Summary ---
Author Organization [facility] app[employer] Address [address] [facility] [place] [address] Care Team Providers Care Emergency Dispatch Operator Name Role Phone Rubia Zaldivar DO Primary Care Provider [phone] Rebecca Wright MD Unavailable Kadie Keating MD Unavailable [phone] Source Comments [facility],non-owned Affiliates and Associated Physician Practices is amultiple site organization consisting of ambulatory clinics and hospital sitesin [place], [place], [place] and [place]. This disclosure is being madepursuant to the Care Everywhere program and may not contain all information available regarding this patient. Last updated 18.[facility] Encounters Date Type Department Care Team Description 10/19/2024 Refill [facility] Heart & Vascular Care [address] [place] [address], [facility] [address] [place] [address] Derek Palumbo MD Refill Request 09/15/2024 Refill [facility] [address] [facility], [facility] [address] [place] [address] Derek Palumbo MD Refill Request 09/12/2024 Orders Only [facility] Medical [facility] - Family Medicine [address] [place] [address] Rubia Zaldivar, DO Wheezing ; COVID 09/11/2024 Telephone [facility] [address] [place] [address] Rubia Zaldivar, DO Covid-19 Home Management 08/11/2024 Telephone [facility] [address] [place] [address] Rubia Zaldivar, DO Rx Medication Issue 08/10/2024 Refill [facility] [address] [place] [address] Rubia Zaldivar, DO Refill Request 08/01/2024 Refill [facility] [id number] [place] [address], [facility] [address] [place] [address] Derek Palumbo MD Refill Request from Last 3 Months Allergies Active Allergy Reactions Criticality Noted Date Comments Cat Hair Extract Urticaria Medium 07/27/2017 House Dust [Other] Other 07/27/2017 Received name: House Dust Allergenic Extract Franklin Rash Medium 06/09/2023 Tree Nuts Urticaria,Rash Medium [...] by mouth 2 times daily 1 Each 12/16/2022 Active montelukast (Singulair) 10 MG tabletIndications: Moderate persistent asthma with acute exacerbation (HCC) Take 1 (one) tablet by mouth at bedtime 90 tablet 3 12/16/2022 Active umeclidinium (Incruse Ellipta) 62.5 MCG/ACT inhalerIndications :Moderate persistent asthma with acute exacerbation (HCC) Inhale 1 (one) puff by mouth once daily 1 Each 12/16/2022 Active zolpidem (Ambien) 5 MG tabletIndications: [...] (Flonase) 50 MCG/ACT nasal sprayIndications:F acial swelling Stanton 2 (two) sprays into each nostril once [...] Comments Blood Pressure 142/88 07/19/2024 9:20 AM MAJOR GIFTS OFFICER Pulse 80 07/19/2024 9:20 AM MAJOR GIFTS OFFICER Temperature 36.7 C (98 F) 07/19/2024 9:20 AM MAJOR GIFTS OFFICER Respiratory Rate 18 04/06/2024 3:55 PM CDT Oxygen Saturation 99% 05/10/2024 1:51 PM CDT Inhaled Oxygen Concentration 21% 12/03/2019 7 :11 AM CDT Weight 110.2 kg (243 lb) 07/19/2024 9:20 AM MAJOR GIFTS OFFICER Height 163.8 cm (5' 4.5 ) 07/19/2024 9:20 AM MAJOR GIFTS OFFICER Body Mass Index 41.07 07/19/2024 9:20 AM MAJOR GIFTS OFFICER Functional Status Functional Status Response Date of [...] person have difficulty concentrating/remembering/making decisions? No 12/13/2020 Plan of Treatment Upcoming Encounters Date Type Department Care Team (Late st Contact Info) Description 10/24/2024 11:15 AM CDT Office Visit [facility] - Family Medicine [address] [place] [address] Rubia Zaldivar DO [address] [place] [address] Goals Goal Patient Goal Type Associated Problems Recent Progress Patient-Stated? Author Blood Pressure < 140/90 Blood Pressure 142/88(2023 9:20 AM MAJOR GIFTS OFFICER) No Anastasiia Linder Note: Caring for Your High Blood Pressure [...] Where can I go for more information? Australian Heart Association National Center: http://www.americanheart.org 1. In the top header, click C onditions . 2. In the top header, click h igh blood pressure. 3. For a printable blood pressure tracker, scroll toward the bottom of the page to Related Tools, and click H BP Trackers. 3-630-WDF-USA-1 or ( ) National Heart, Lung and Blood [place]: http://www.nhlbi.nih.gov/health/infoctr/index.htm Procedures Procedure Name Priority Date/Time Associated Diagnosis Comments MAMMO BILAT DIAGNOSTIC W GIGI Routine 07/05/2024 11:51 AM MAJOR GIFTS OFFICER Breast pain LIPID PROFILE Routine 02/29/2024 3:57 [...] Bilat Diagnostic W Gigi (07/05/2024 11:51 AM MAJOR GIFTS OFFICER) Anatomical Region Laterality Modality Breast Bilateral Mammography 07/05/2024 11:5 4 AM MAJOR GIFTS OFFICER Impressions 07/05/2024 12:00 PM MAJOR GIFTS OFFICER IMPRESSION: 1. There is no suspicious finding [...] 07/05/2024 12:00 PM Narrative 07/05/2024 12:00 PM MAJOR GIFTS OFFICER EXAMINATION: BILATERAL DIGITAL DIAGNOSTIC MAMMOGRAM AND BILATERAL [...] Agency Comment Lab Testing performed at: [facility] [address] Shubham CORTES [id number] Rubia Zaldivar DO LAB - CHEMISTRY KRISTINA AREVALO [facility] ACCOUNT BILL [address] [place] [address] * (ABNORMAL) HEMOGLOBIN A1C (02/29/2024 3:55 PM [...] (HbF) exceeds 5% in the specimen. The Good4Unity assay for the measurement of HbA1c is a [facility] Glycohemoglobin Standardization Program (NGSP) certi fied method. FASTING Blood BLOOD SPECIMEN / Unknown 02/29/2024 3:55 PM CDT 02/29/2024 Narrative Resulting Agency Comment Lab Testing performed at: [address] Shubham CORTES [id number] Rubia Zaldivar LAB - CHEMISTRY KRISTINA AREVALO Performing Organization Address [facility] Co de Phone Number [facility] ACCOUNT BILL [address] [place] [address] * HEPATITIS SCREEN ACUTE ([facility]) (11/18/2023 11:50 [...] Resulting Agency Comment Lab Testing performed at: [address] Shubham CORTES [id number] Kadie Keating MD LAB - CHEMISTRY KRISTINA AREVALO Performing Organization Address [facility] Co de Phone Number [facility] ACCOUNT BILL [address] [place] [address] * HIV-1 HIV-2 ANTIBODY + HIV P24 [...] purpose. For additional information please refer to http://education.Corduro/faq/UOM841 (This link is being provided for informational/ educational purposes only.) The performance of this assay has not been clinically validated in patients less than 2 years old. Test Performed at: [facility] [employer] [address] [address] [facility] [place] [address] CHRISTINE PYLE DO,MPH Blood BLOOD SPECIMEN / Unknown 01/29/2021 2:33 PM CDT 01/29/2021 2:35 PM CDT Fabi Pulliam MD LAB - CHEMISTRY ORD ERABLES [employer] [address] [place] [address] from Last 3 Months or Most Recently Relevant to Health Maintenance Administered Medications Advance Directives Documents on File Type Date Recorded Patient Sales Marketing Director Expl anation Adv Directive/Living Will/POA 12/02/2016 medication patient assistance program * Full Code (Latest Code Status on File) Date Activated Date Inactivated Comments 11/28/2019 3:51 PM 12/05/2019 1:57 PM * Full Code Date Activated Date Inactivated Comments 12/02/2016 3:09 AM 12/04/2016 1:47 PM * Full Code Date Activated Date Inactivated Comments 10/03/2015 12:38 AM 10/04/2015 6:37 PM Care Teams Emergency Dispatch Operator Relationship Specialty Start Date End Date Rubia Zaldivar DO [address] [place] [address] PCP - General Family Medicine 08/18/18 [place] [address] [address] Pulmonary Disease 02/06/20 [place] [address] [address] [place] [address] Rheumatology 12/03/20
--- OUTSIDE RECORDS SUMMARY | 2024-10-21 13:38 | XMS_ITS | Referral Summary ---
Author Organization [facility] Address [address] [place] [address] Care Team Providers Care Channel Marketing Manager Name Role Phone Rubia Zaldivar Primary Care Provider [phone] Allergies Active Allergy Reactions Criticality Noted Date Comments Ellsworth Rash Medium 06/09/2023 Tree Nut Rash Medium 06/09/2023 Medications albuterol HFA (PROVENTIL HFA,VENTOLIN HFA,PROAIR HFA) 90 mcg/actuation inhaler Inhale 1-2 puffs every 6 (six) hours as needed for wheezing 18 g 3 Active ipratropium (ATROVENT) 21 mcg (0.03 %) nasal spray Administer 2 sprays into each nostril every 12 (twelve) hours 30 mL 3 Active fluticasone propionate (FLOVENT HFA) 110 mcg/actuation inhaler Inhale 1 puff 2 (two) times a day for 10 days Rinse mouth with water after use. Do not swallow. 1 each 3 Active Social History Tobacco Use Types Packs/Day Years Used Date Smoking Tobacco: Never Assessed Personal Safety Answer Date Recorded Have you ever been in or are you currently in a harmful physical or emotional relationship or is someone making you feel afraid or unsafe? 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 Gender Identity Not on file Sexual Orientation Not on file Last Filed Vital Signs Vital Sign Reading Time Taken Comments Blood Pressure 145/91 06/09/2023 7:00 PM CDT Pulse 97 06/09/2023 7:00 PM CDT Temperature 36.7 C (98 F) 06/09/2023 3:59 PM CDT Respiratory Rate 19 06/09/2023 7:00 PM CDT Oxygen Saturation 97% 06/09/2023 6:30 PM CDT Inhaled Oxygen Concentration - - Weight 100.2 kg (221 lb) 06/09/2023 3:59 PM CDT Height 163.8 cm (5' 4.5 ) 06/09/2023 3:59 PM CDT Body Mass Index 37.35 06/09/2023 3:59 PM CDT Plan of Treatment Not on file Insurance [facility] [employer] Address: [facility] [address] [place] [address] [employer] [place] [employer] [place] [employer] [place] Care Teams Channel Marketing Manager Relationship Specialty Start Date End Date Rubia Zaldivar DO [address] [place] [address] PCP - General Family Medicine 04/13/23
--- OUTSIDE RECORDS SUMMARY | 2024-10-21 13:38 | XMS_ITS | Clinical Summary ---
Author Organization [facility] Address [address] [place] [address] Care Team Providers Care Assistant Professor Of Forestry Name Role Phone Rubia Zaldivar Primo CASEY Primary Care Provider [phone] Allergies Active Allergy Reactions Criticality Noted Date Comments Cat Dander Rash Medium 07/27/2017 Nuts Rash Medium 07/27/2017 Wheat Rash Medium 07/27/2017 Medications montelukast 10 MG tablet Take 10 mg by mouth nightly at bedtime. Active ondansetron 4 MG disintegrating tablet Take 1 tablet (4 mg total) by mouth every 8 (eight) hours as needed. 20 tablet 09/17/19 20 Active Additional Information Patient taking differently:4 mg Oral Every 8 hours PRN,Nausea, Reported on 02/14/2022 omeprazole 20 MG capsule Take 20 mg by mouth daily. 10/11/19 20 Active fluticasone-salmet emeli 500-50 MCG/DOSE inhaler Inhale 1 puff into the lungs 2 (two) times daily. 02/06/20 20 Active albuterol sulfate HFA 108 (90 Base) MCG/ACT inhaler Inhale 2 puffs into the lungs every 6 (six) hours as needed for Wheezing. 18 g 10/25/19 21 Active naproxen (NAPROSYN) 500 MG tablet Take 1 tablet (500 mg total) by mouth 2 (two) times daily with meals. 60 tablet 03/07/20 21 Active Additional Information Patient taking differently:500 mg Oral2 times daily PRN, pain, Reported on 02/14/2022 losartan-hydroCHLO ROthiazide 100-25 MG tablet Take 1 tablet by mouth in the morning. 07/02/20 Active methotrexate 2.5 MG tablet Take 15 mg by mouth once a week. On Mondays02/11/20 Active amLODIPine 5 MG tablet Take 5 mg by mouth in the morning. 06/30/20 Active folic acid 1 MG tablet Take 1 mg by mouth in the morning. 02/11/20 Active vitamin D2, ergocalciferol, 37019 UNITS capsule Take 50,000 Units by mouth every 7 days. On Mondays02/11/20 Active zolpidem 5 MG tablet Take 5 mg by mouth nightly as needed for Sleep. 07/02/20 Active Cetirizine-Pseudoe phedrine (ZYRTEC-D OR) Take 1 tablet by mouth daily as needed (allergies). Active ketorolac 10 MG tablet Take 1 tablet (10 mg total) by mouth every 8 (eight) hours as needed for Pain. Do not take with any other anti-inflammato ry- Ibuprofen, Naprosyn, etc 10 tablet 02/15/20 22 Active methocarbamol (ROBAXIN-750) 750 MG Tab Take 1 tablet (750 mg total) by mouth every 8 (eight) hours as needed. 30 tablet 02/26/20 23 Active lidocaine (LIDO DANIEL) 4 % patch Place 1 patch onto the skin daily. Remove & Discard patch within 12 hours or as directed 30 patch 02/26/20 23 Active Active Problems Problem Noted Date Diagnosed Date Moderate persistent asthma without complication (HHS/HCC) 02/06/2020 Community acquired pneumonia 11/28/2019 Hypokalemia 11/28/2019 Mass of skin of back 09/08/2019 Lipoma of torso 08/25/2018 Elevated blood pressure reading 11/23/2017 Assessment & Plan (11/23/2017 10:08 AM CDT): Blood pressure 158/110 at admission. Repeat 134/82 after Nitropaste -Continue to monitor blood pressure. -Can be elevated as patient is acutely sick -Most recent BP 134/79. Without medication -Will need close follow-up with PCP. Asthma exacerbation (HHS/HCC) 11/23/2017 Asthenia 12/16/2016 Benign essential hypertension 12/16/2016 Dysarthria on examination 12/16/2016 Neck pain 12/16/2016 Impaired glucose tolerance 11/06/2015 Abnormal electrocardiogram 09/09/2015 Anemia 09/09/2015 Deep vein thrombosis (DVT) ([facility]) 08/2015 Overview (02/14/2022): 02 Obesity 09/09/2015 Palpitations 09/09/2015 Sleep apnea 09/09/2015 Chest pain 01/25/2014 Overview (02/14/2022): Overview: Last Assessment & Plan: 47-year-old female with [...] likelihood of cardiac etiology of chest pain. Last Assessment & Plan: 47-year-old female with [...] likelihood of cardiac etiology of chest pain. Assessment & Plan (11/23/2017 10:07 AM CDT): 47-year-old female with a past medical history [...] likelihood of cardiac etiology of chest pain. Family history of heart disease 10/09/2010 Encounter for screening 02/13/2009 Overview (11/12/2019): Overview: Adult Abstraction Problem List Screening Colonoscopy: Date:2004 Pap Smear: Date:07/15/2000 Hay fever 02/13/2009 Overview (11/12/2019): Overview: Asthma attacks PPD negative 02/13/2009 Overview (11/12/2019): Overview: 01/14 Resolved Problems Problem Noted Date Diagnosed Date Resolved Date Suspected COVID-19 virus infection 11/28/2019 04/19/2020 Family History Medical History Relation Comments Cancer Father Hypertension Father Asthma Mother Hypertension Mother Relation Status Comments Father Alive Mother Alive Social History Tobacco Use Types Packs/Day Years Used Date Smoking Tobacco: Never Smokeless Tobacco: Never Alcohol Use Standard Drinks/Week Comments Not Currently 0 (1 standard drink = 0.6 oz pur e alcohol) social [facility] - Occupational Stress [...] Sign Reading Time Taken Comments Blood Pressure 125/82 07/24/2023 4:16 PM HEEL COVERER MACHINE OPERATOR Pulse 91 07/24/2023 4:03 PM HEEL COVERER MACHINE OPERATOR Temperature 36.7 C (98.1 F) 07/24/2023 1:14 PM HEEL COVERER MACHINE OPERATOR Respiratory Rate 18 07/24/2023 4:03 PM HEEL COVERER MACHINE OPERATOR Oxygen Saturation 98% 07/24/2023 4:03 PM HEEL COVERER MACHINE OPERATOR Inhaled Oxygen Concentration - - Weight 99.8 kg (220 lb) 07/24/2023 1:14 PM HEEL COVERER MACHINE OPERATOR Height 162.6 cm (5' 4 ) 07/24/2023 1:14 PM HEEL COVERER MACHINE OPERATOR Body Mass Index 37.76 07/24/2023 1:14 PM HEEL COVERER MACHINE OPERATOR Plan of Treatment Health Maintenance Due Date Last Done Comments Colorectal Cancer Screening Colonoscopy (10 Years) 1970 Annual Physical 1973 Pneumococcal Vaccine: Pediat rics (0 to 5 Years) and At-Risk Patients (6 to 64 Years) (1 of 2 - PCV) 1976 DTaP, Tdap and Td Vaccines ( 1 - Tdap) 1989 Hepatitis B Vaccines (1 of 3 - 19+ 3-dose series) 1989 Mammogram Screening 2010 Zoster Vaccines (1 of 2) 2020 COVID-19 Vaccine (2 - 2023-2 5 season) 2024 07/27/2020 Influenza Adult (#1) 2024 Hepatitis C Completed 01/29/2021 Meningococcal B Vaccine Aged Out No l onger eligible based on patient's age to complete this topic Meningococcal Vaccine Aged Out No arabella yesica eligible based on patient's age to complete this topic RSV Immunizations Under 20 Months Aged Out No longer eligible based on patient's age to complete this topic Insurance MEDICAID DEPT OF [address] MEDICAID Advance Directives * Full Code (Latest Code Status on File) Date Activated Date Inactivated Comments 02/14/2022 5:34 AM 02/14/2022 3:28 PM * Full Code Date Activated Date Inactivated Comments 02/27/2020 3:06 AM 02/28/2020 2:01 PM * Full Code Date Activated Date Inactivated Comments 11/11/2019 11:27 PM 11/12/2019 6:08 PM * Full Code Date Activated Date Inactivated Comments 11/23/2017 3:27 AM 11/23/2017 2:23 PM * Full Code Date Activated Date Inactivated Comments 11/23/2017 2:00 AM 11/23/2017 3:27 AM Care Teams Assistant Professor Of Forestry Relationship Specialty Start Date End Date Rubia Zaldivar DO [address] [place] [address] PCP - General EMERGENCY MEDICINE 10/24/20
--- OUTSIDE RECORDS SUMMARY | 2024-10-21 13:38 | XMS_ITS | CONTINUITY OF CARE DOCUMENT ---
Author Name lalito starkey Address Unknown Organization [facility] Office Address [address] [address] [place] [address] Phone [phone] Care Team Providers Care High Lighter Name Role Phone Jeevan Fonseca MD Unavailable [phone] Zen DORubia Unavailable Zen DO, Sheerin B Unavailable PROBLEMS Condition Status Date Provider Notes ASTHMA [...] In-person encounter Office Visit Pranav Pascal MD [facility] Office Health maintenance examination 4 - 4 [...] cell distribution width, size density 38.[address] [facility] - immature granulocytes, percentage of total cells, blood 0.1 % [facility] - nucleated red blood cells as percent of blood leukocytes 0.0 % [facility] - red blood cell (erythrocyte) count, per high power field 0.0 10*3/UL [facility] as percent of blood leukocytes 2.7 % [facility] neutrophils as percent of blood leukocytes 60.1 % [facility] - Absolute Neutrophils 4.4 CELLS/UL [facility] 1.5 - 7.8 basophils as percent of blood leukocytes 1.0 % [facility] - Absolute Basophils 0.1 CELLS/UL [facility] 0.0 - 0.2 monocytes as percent of blood leukocytes 7.2 % [facility] - Absolute Monocytes 0.5 CELLS/UL [facility] 0.2 - 1.0 lymphocytes as percent of blood leukocytes 28.9 % [facility] - Absolute Lymphocytes 2.1 CELLS/UL [facility] 0.9 - 3.9 mean platelet volume 10.9 (?) [facility] - platelet count 381.0 THOUSAND/UL [facility] 100.0 [...] 5.5 reticulocyte count, absolute 0.080 10*6 CELLS/UL [facility] - reticulocyte count, blood, uncorrected 1.61 % [facility] 0.50 - 2.00 ferritin, serum 58.9 ng/mL [facility] 13.0 - 150.0 iron binding capacity, total 402.0 (?) [facility] - iron, serum 76.0 ug/dL [facility] 25.0 - 156.0 iron binding capacity, unsaturated 326.0 ??G/DL [facility] 112.0 - 347.0 D-dimer quantitative mcg/mL 0.62 MCG/ML FEU [facility] <0.50 High red blood cell distribution width, size density 38.[address] [facility] - immature granulocytes, percentage of total cells, blood 0.1 % [facility] - nucleated red blood cells as percent of blood leukocytes 0.0 % [facility] - red blood cell (erythrocyte) count, per high power field 0.0 10*3/UL [facility] - eosinophils as percent of blood leukocytes 1.7 % [facility] - neutrophils as percent of blood leukocytes 64.2 % [facility] - Absolute Neutrophils 5.2 CELLS/UL [facility] 1.5 - 7.8 basophils as percent of blood leukocytes 0.7 % [facility] - Absolute Basophils 0.1 CELLS/UL [facility] 0.0 - 0.2 monocytes as percent of blood leukocytes 5.1 % [facility] - Absolute Monocytes 0.4 CELLS/UL [facility] 0.2 - 1.0 lymphocytes as percent of blood leukocytes 28.2 % [facility] - Absolute Lymphocytes 2.3 CELLS/UL [facility] 0.9 [...] Dates Provider Indications Com ments VITAMIN D3 86131 UNIT ORAL CAPSULE active ONE A WEEK 1 Jeevan Fonseca MD FERROUS SULFATE 325 (65 Fe) MG ORAL TABLET completed ONE PER DAY 0 - 3 Pranav Pascal MD ALBUTEROL SULFATE (5 MG/ML) 0.5% INHALATION NEBULIZATION SOLUTION active 2 puffs as direceted Janice Villalta VITAMIN D3 5000 UNIT ORAL TABLET completed take one tab daily 4 - 0 Jeevan Fonseac MD QSYMIA 7.5-46 MG ORAL CAPSULE EXTENDED [...] / Coverage type Thomas ramsey republican ID [id number] TREATMENT PLAN Date Name Performer Hem/Onc:Refer carmina malin for routine screening mammogram. Orders: M ammogram-Bilateral (CPT-12724) 9 [id number] MOD C omplex (CPT-88500) Pranav Pascal MD Hem/Onc:The patient has a microcytic with a near normal Hgb. This likely represents an underlying thalassemia or sickle cell trait. I will check hemoglobin elctorphoresis to confirm. I will also obtain FOB for evalaution. She will return in three months for follow up. Orders: H gb Electrophoresis (CPT-[id number]) M ammogram-Bilateral (CPT-07429) O CCULT BLOOD, STOOL (78154) 9 6606 MOD C omplex (CPT-18734) Pranav Pascal MD Cardiology Jeevan Fonseca MD [...] FERRITIN CBC (INCLUDES DIFF/P LT) DLCO - 03409 FRC - 50677 FVC - 32618 HISTORY OF PROCEDURES Procedure Date Procedure Name Provider Procedure Notes S tatus SNOMED-CT: [id number] Current Medications Documented Pranav Pascal MD completed SNOMED-CT: 365532070 267763 Current Medications Documented Jeevan Fonseca MD completed EKG Jeevan Fonseca MD complete d SNOMED-CT: 258272997 046770 Current Medications Documented Jeevan Fonseca MD completed FVC - 40079 Jeevan Fonseca MD complet ed FRC - 00194 Jeevan Fonseca MD complet ed DLCO - 61173 Jeevan Fonseca MD comple kimi Holter, 24 or 48 Jeevan Fonseca MD co mpleted Home Sleep Study Jeevan Fonseca MD co mpleted SNOMED-CT: 464295577 393708 Current Medications Documented Jeevan Fonseca MD completed
--- OUTSIDE RECORDS SUMMARY | 2024-10-21 13:38 | XMS_ITS | Clinical Summary ---
Author Organization [facility] Address [address] [place] [address] Care Team Providers Care Social Professionals Name Role Phone Rubia Zaldivar Primary Care Provider [phone] Allergies Active Allergy Reactions Criticality Noted Date Comments [place] Rash Medium 06/09/2023 Tree Nut Rash Medium [...] on file Legal Sex Female 11:43 PM DATASTAGE DEVELOPER Gender Identity Not on file Sexual Orientation [...] 06/09/2023 3:59 PM CDT Plan of Treatment Health Maintenance Due Date Last Done Comments Breast Cancer Screening-Mammogram 1970 Cervical Cancer Screening 1970 Colon Cancer Screening-Colonoscopy 1970 Depression Screening 1970 Hepatitis C Screening 1970 DTaP/Tdap/Td Vaccine (1 - Tdap) 1981 Hepatitis B Screening 1988 Regular Well Visit/Exam 18-64 1988 Pneumococcal vaccine <65 (1 of 2 - PCV) 1989 Zoster Vaccine (1 of 2) 2020 Influenza Vaccine (#1) 2024 Insurance [facility] [place] Care Teams Social Professionals Relationship Specialty Start Date End Date Rubia Zaldivar DO [address] [place] [id number] PCP - General Family Medicine 04/13/23
--- OUTSIDE RECORDS SUMMARY | 2024-10-21 13:38 | XMS_ITS | Clinical Summary ---
Author Organization [facility] Address [address] [place] [address] Care Team Providers Care Plant Safety Engineer Name Role Phone Unavailable Primary Care Provider Unavailabl e Social History Tobacco Use Types Packs/Day Years Used Date Smoking Tobacco: Never Assessed Comments Unknown Sex and Gender Information Value Date Recorded Sex Assigned at Not on file Legal Sex Female 3:20 PM CATH LAB RADIOLOGY TECHNICIAN Gender Identity Not on file Sexual Orientation Not on file Plan of Treatment Health Maintenance Due Date Last Done Comments Hepatitis C Virus (HCV) Screening 1970 TdaP Immunization 1970 Hepatitis B Immunization (1 of 3 - 19+ 3-dose series) 1989 Pap Smear 1991 Cervical Cancer Screening (CCS) 2000 HPV/Cotest 2000 Colonoscopy 2015 Colorectal Cancer Screening 2015 Cologuard 2020 Immunochemical Fecal Occult Blood 2020 Mammogram 2020 Pneumococcal Immunization (5 0+ years) (1 of 1 - PCV) 2020 Zoster Immunization (1 of 2) 2020 Influenza Immunization (#1) 2024 SARS-COV-2 Immunization (2 - season) 2024 07/27/2020 Respiratory Syncytial Virus (RSV) Immunization (Adult) (1 - 1-dose 75+ series) 2045 Meningococcal Immunization (ACWY) Aged Out No longer eligible based on patient's age to complete this topic Pneumococcal Immunization Combined Aged Out No longer eligible based on patient's age to complete this topic Rotavirus Immunization Aged Out No lo nger eligible based on patient's age to complete this topic
--- NOTE | 2024-10-21 13:44 | ED.GENADULT ---
HPI - General Adult General Chief complaint: Headache Stated complaint: SWOLLEN FROM INSIDE OUT,HEADACHE Time Seen by Provider: 10/21/24 13:24 History of Present Illness HPI narrative: 54-year-old female presented to the emergency department for evaluation for sinus pressure congestion right ear pressure and increased snoring. Patient reports that yesterday she began having increased sinus pressure. Patient states when she was snoring last night she felt that she was going to . Related Data Allergies Allergy/AdvReac Type Severity Reaction Status Date / Time No Known Allergies Allergy Verified 10/21/24 11:10 Review of Systems Review of Systems: All systems reviewed & are unremarkable except as noted in HPI and below Exam Narrative: APPEARANCE: Well appearing, no pain, no distress, well-nourished. HEAD: normocephalic, atraumatic. EYES: PERRLA/EOMI, conjunctivae clear. NOSE: Normal no drainage EARS:TMS clear with good light reflex. THROAT: Pharynx clear, no exudate. NECK: Supple. No adenopathy, no masses. RESPIRATORY: Airway patent, respirations nonlabored. Clear to auscultation bilaterally, no rales, rhonchi, wheezing. CARDIOVASCULAR: Regular rate and rhythm without murmurs rubs or gallops. ABDOMINAL: Soft, nontender, nondistended, normal bowel sounds MUSCULOSKELETAL: Moves all extremities. Strength/ROM intact, No edema, No calf tenderness. NEURO: Alert. Cranial nerves II through XII intact. Good gait. Good coordination SKIN: Warm, dry. Normal Color Course Vital Signs Vital signs: Vital Signs Temperature 97.6 F 10/21/24 11:16 Pulse Rate 89 10/21/24 11:16 Respiratory Rate 18 10/21/24 11:16 Blood Pressure 156/114 H 10/21/24 11:16 Pulse Oximetry 100 10/21/24 11:16 Oxygen Delivery Room Air 10/21/24 11:16 Temperature 97.6 F 10/21/24 11:16 Pulse Rate 84 10/21/24 15:49 Respiratory Rate 16 10/21/24 15:49 Blood Pressure 128/64 10/21/24 15:49 Pulse Oximetry 97 10/21/24 15:49 Oxygen Delivery Room Air 10/21/24 11:16 Medical Decision Making [facility] Narrative Medical decision making narrative: 54 old female presents emergency department for evaluation for sinus congestion. Patient did feel improved with treatment. Head CT did show possible acute sinusitis. Patient was advised to take a mild decongestant such as Claritin or Zyrtec. Patient was encouraged to increase her water intake. Patient is also encouraged close follow-up with primary care physician case they want to start antibiotics in the future. All questions concerns were addressed patient was comfortable the plan for discharge and close follow-up Differential Diagnosis Differential Diagnosis: Migraine, headache, sinusitis Vital Signs Vital Signs: Vital Signs Temperature 97.6 F 10/21/24 11:16 Pulse Rate 89 10/21/24 11:16 Respiratory Rate 18 10/21/24 11:16 Blood Pressure 156/114 H 10/21/24 11:16 Pulse Oximetry 100 10/21/24 11:16 Oxygen Delivery Room Air 10/21/24 11:16 Temperature 97.6 F 10/21/24 11:16 Pulse Rate 84 10/21/24 15:49 Respiratory Rate 16 10/21/24 15:49 Blood Pressure 128/64 10/21/24 15:49 Pulse Oximetry 97 10/21/24 15:49 Oxygen Delivery Room Air 10/21/24 11:16 Imaging Data Radiologist's impression: Impressions Head CT 10/21/24 14:46 IMPRESSION: No acute intracranial process. CT findings suggestive of acute sphenoid sinusitis in the appropriate clinical context. Discharge Plan Discharge Clinical Impression: Sinusitis Patient Disposition: Home, Self-Care Condition: Stable Instructions: Antibiotic Form, Sinusitis (ED) Additional Instructions: Stay hydrated. Mildly congested such as Claritin or Zyrtec to help with sinus congestion. Close follow-up with your primary care physician. If you have any worsening symptoms then please call or return to the emergency department. Patient Language: Uzbek Follow-up/Referrals: PHYSICIAN NOT ON STAFF,NONSTAFF [Primary Care Provider] -
[2024-10-21] MEDS: KETOROLAC 15 MG/ML VIAL (*BKC) IV PUSH (14:21)
[2024-10-21 15:49] VITALS: BP 128/64; PULSE 84; RESP 16; O2SAT 97
== END 2024-10-21 15:50 | disposition home or self-care (01) ==
PROVIDERS: Emergency Provider Emergency Medicine
DX: J32.9 Chronic sinusitis, unspecified (principal)
CPT/HCPCS: 70450; 96374; 99284; J1885